=== PATIENT | female | born 1970 | race Hispanic/Latino ===

== ENCOUNTER 2018-08-16 07:45 | Emergency (ER) | payer BC, OTHER ==
[2018-08-16] MEDS ORDERED: ASPIRIN PO ONE (07:51)
[2018-08-16 08:09] LABS: Basophils # (Auto) 0.1 K/mm3 (0.0-0.1); Basophils % (Auto) 1.1 % (0.0-1.8); Eosinophils # (Auto) 0.3 K/mm3 (0.0-0.4); Eosinophils % (Auto) 3.5 % (0.0-4.3); Hematocrit 42.3 % (30.3-42.9); Hemoglobin 14.5 gm/dl (10.1-14.3); Lymphocytes # (Auto) 2.5 K/mm3 (1.2-5.4); Lymphocytes % (Auto) 28.1 % (13.4-35.0); Mean Corpuscular HGB Conc 34 % (30-34); Mean Corpuscular Volume 86 fl (79-97); Monocytes # (Auto) 0.8 K/mm3 (0.0-0.8); Monocytes % (Auto) 8.6 % (0.0-7.3); Platelet Count 258 K/mm3 (140-440); Red Blood Count 4.95 M/mm3 (3.65-5.03); Red Cell Distribution Width 13.4 % (13.2-15.2)
--- NOTE | 2018-08-16 08:11 | XRay Report ---
Chest 2 views: History: Chest pain. Findings: Borderline cardiomegaly. Trachea is midline. No consolidation, pneumothorax or pleural effusion. Impression: No acute cardiopulmonary findings.
[2018-08-16 08:21] LABS: BUN/Creatinine Ratio 27; Blood Urea Nitrogen 16 mg/dL (7-17); Hemolysis Index 11
--- NOTE | 2018-08-16 08:47 | Emergency Department Report ---
ED Chest Pain HPI - General Chief Complaint: Chest Pain Stated Complaint: HBP/CHEST TIGHTNESS Source: patient Mode of arrival: Ambulatory Limitations: No Limitations - History of Present Illness Initial Comments: This is a 47-year-old female that presents with substernal chest pain since 3 AM this morning. Patient states she got off work she started feeling chest tightness is substernal. In route home. She decided to follow up in the emergency room because she has similar symptoms in the past had to be admitted for observation. Patient states initially she thought it was just her blood pressure constant chest pain. Patient states when may check blood pressure was elevated and she continued to feel sharp pain center chest. Patient states last time she was admitted they did a stress test and echocardiogram and ran multiple labs which were all normal and told her to follow-up with her primary care provider. Patient states this time pain is worse and mL pain below bilateral shoulder presents. She also reports a history of hypertension but refuses to take lisinopril prescribed. She denies fever, rhinorrhea, dizziness, numbness or tingling, nausea or vomiting, diarrhea, dyspnea, cough, diaphoresis, or burning sensation. MD Complaint: chest pain -: This morning Time: 03:00 Pain Location: substernal Pain Radiation: none Severity: moderate Severity scale (0 -10): 5 Quality: tightness Consistency: intermittent Improves With: nothing Worsens With: nothing Treatments Prior to Arrival: none Aspirin use within the Past 7 Days: (0) No - Related Data On Oral Contraceptives: No Previous Rx's Medication Instructions Recorded Last Taken Type Albuterol Sulfate [Proventil Hfa] 6.7 gm IH Q6HR PRN #1 hfa.aer.ad 10/20/17 Unknown Rx HYDROcodone/ACETAMINOPHEN [[place] 1 each PO Q6HR PRN #14 tablet 10/20/17 Unknown Rx 5-325 Tablet] Mometasone Furoate [Asmanex Hfa] 13 gm IH BID #1 hfa.aer.ad 10/20/17 Unknown Rx Lisinopril [Zestril TAB] 5 mg PO QDAY #30 tablet 08/16/18 Unknown Rx Allergies Allergy/AdvReac Type Severity Reaction Status Date / Time prochlorperazine Allergy Itching Verified 10/19/17 01:48 [From Compazine] sulfamethoxazole Allergy Itching Verified 10/19/17 01:48 [From Bactrim] trimethoprim [From Bactrim] Allergy Itching Verified 10/19/17 01:48 Heart Score - HEART Score History: Slightly suspicious EKG: Normal Age: 45-65 Risk factors: 1-2 risk factors Troponin: < normal limit HEART Score: 2 - Critical Actions Critical Actions: 0-3 pts:0.9-1.7%risk of adverse cardiac event.Candidate for discharge ED Review of Systems ROS: Stated complaint: HBP/CHEST TIGHTNESS Other details as noted in HPI Constitutional: denies: chills, fever Respiratory: denies: cough, shortness of breath, wheezing Cardiovascular: chest pain. denies: palpitations Gastrointestinal: denies: abdominal pain, nausea, diarrhea Musculoskeletal: denies: back pain, joint swelling, arthralgia Skin: denies: rash, lesions Neurological: denies: headache, weakness, paresthesias Psychiatric: denies: anxiety, depression ED Past Medical Hx - Past Medical History Hx Arthritis: Yes Hx Asthma: Yes Additional medical history: sarcodosis - Surgical History Hx Cholecystectomy: Yes Hx Appendectomy: Yes Additional Surgical History: hysterectomy - Social History Smoking Status: Never Smoker Substance Use Type: None - Medications Home Medications: Home Medications Medication Instructions Recorded Confirmed Last Taken Type Albuterol Sulfate [Proventil Hfa] 6.7 gm IH Q6HR PRN #1 hfa.aer.ad 10/20/17 Unknown Rx HYDROcodone/ACETAMINOPHEN [[place] 1 each PO Q6HR PRN #14 tablet 10/20/17 Unknown Rx 5-325 Tablet] Mometasone Furoate [Asmanex Hfa] 13 gm IH BID #1 hfa.aer.ad 10/20/17 Unknown Rx Lisinopril [Zestril TAB] 5 mg PO QDAY #30 tablet 08/16/18 Unknown Rx ED Physical Exam - General Limitations: No Limitations General appearance: alert, in no apparent distress, obese - Respiratory Respiratory exam: Present: normal lung sounds bilaterally. Absent: respiratory distress - Cardiovascular Cardiovascular Exam: Present: regular rate, normal rhythm. Absent: systolic murmur, diastolic murmur, rubs, gallop - GI/Abdominal GI/Abdominal exam: Present: soft, normal bowel sounds - Back Exam Back exam: Absent: CVA tenderness (R), CVA tenderness (L) - Neurological Exam Neurological exam: Present: alert, oriented X3 - Psychiatric Psychiatric exam: Present: normal affect, normal mood - Skin Skin exam: Present: warm, dry, intact, normal color. Absent: rash ED Course Vital Signs 08/16/18 08/16/18 08/16/18 07:47 08:58 09:00 Temperature 98.6 F Pulse Rate 95 H 89 87 Respiratory 16 13 17 Rate Blood Pressure 167/100 153/91 O2 Sat by Pulse 98 99 Oximetry 08/16/18 08/16/18 08/16/18 09:01 09:15 09:31 Temperature Pulse Rate 90 91 H Respiratory 18 21 24 Rate Blood Pressure 161/96 139/78 O2 Sat by Pulse 98 96 96 Oximetry 08/16/18 08/16/18 08/16/18 09:45 09:49 10:00 Temperature Pulse Rate 90 86 83 Respiratory 17 10 L Rate Blood Pressure 139/84 139/84 O2 Sat by Pulse 98 98 Oximetry 08/16/18 08/16/18 08/16/18 10:15 10:30 10:45 Temperature Pulse Rate 85 88 87 Respiratory 21 22 22 Rate Blood Pressure 148/86 161/97 153/92 O2 Sat by Pulse 98 96 95 Oximetry 08/16/18 08/16/18 08/16/18 11:00 11:15 11:30 Temperature Pulse Rate 87 85 91 H Respiratory 21 21 18 Rate Blood Pressure 163/95 164/94 165/107 O2 Sat by Pulse 95 96 97 Oximetry FER score - Fer Score Age > 65: (0) No Aspirin use within the Past 7 Days: (0) No 3 or more CAD Risk Factors: (0) No 2 or more Angina events in past 24 hrs: (0) No Known CAD with more than 50% Stenosis: (0) No Elevated Cardiac Markers: (0) No ST Deviation Greater than 0.5mm: (0) No FER Score: 0 ED Medical Decision Making - Lab Data Result diagrams: 08/16/18 07:56 08/16/18 07:56 Lab Results 08/16/18 08/16/18 08/16/18 Range/Units 07:56 07:56 10:48 WBC 8.8 (4.5-11.0) K/mm3 RBC 4.95 (3.65-5.03) M/mm3 Hgb 14.5 H (10.1-14.3) gm/dl Hct 42.3 (30.3-42.9) % MCV 86 (79-97) fl MCH 29 (28-32) pg MCHC 34 (30-34) % RDW 13.4 (13.2-15.2) % Plt Count 258 (140-440) K/mm3 Lymph % (Auto) 28.1 (13.4-35.0) % Mchenry % (Auto) 8.6 H (0.0-7.3) % Eos % (Auto) 3.5 (0.0-4.3) % Baso % (Auto) 1.1 (0.0-1.8) % Lymph # 2.5 (1.2-5.4) K/mm3 Mchenry # 0.8 (0.0-0.8) K/mm3 Eos # 0.3 (0.0-0.4) K/mm3 Baso # 0.1 (0.0-0.1) K/mm3 Seg Neutrophils % 58.7 (40.0-70.0) % Seg Neutrophils # 5.2 (1.8-7.7) K/mm3 Sodium 138 (137-145) mmol/L Potassium 3.9 (3.6-5.0) mmol/L Chloride 99.9 (98-107) mmol/L Carbon Dioxide 25 (22-30) mmol/L Anion Gap 17 mmol/L BUN 16 (7-17) mg/dL Creatinine 0.6 L (0.7-1.2) mg/dL Estimated GFR > 60 ml/min BUN/Creatinine Ratio 27 % Glucose 97 (65-100) mg/dL Calcium 9.0 (8.4-10.2) mg/dL Troponin T < 0.010 < 0.010 (0.00-0.029) ng/mL - EKG Data -: No EKG Interpreted by Me (EKG interpreted by attending) EKG shows normal: sinus rhythm Rate: normal (no STEMI) - EKG Data When compared to previous EKG there are: no significant change - Radiology Data Radiology results: report reviewed Chest 2 views: History: Chest pain. Findings: Borderline cardiomegaly. Trachea is midline. No consolidation, pneumothorax or pleural effusion. Impression: No acute cardiopulmonary findings. - Medical Decision Making This is a 47 y.o. female that presents with chest pain that started around 3 AM this morning. History of HTN. Patient admits to refuse and taking blood pressure medication. Patient is stable and was examined by me. Obtained CBC, CMP, troponin, EKG, and chest x-ray. Given aspirin 325 mg by mouth. There is reproducible tenderness on right costochondral joint. Patient admitted at this ER less than a year ago and had a negative stress test, echocardiogram, and cardiac workup. Blood pressure remains elevated on monitor. Given lisinopril 5 mg by mouth once while in ER. Start lisinopril 5 mg po daily for hypertension. Referral to cardiology and gastroenterology for continued workup. Discussed plan with patient and agreed to plan. No further questions noted by the patient. Discharged home in stable condition. Follow up with PCP in 2-3 days. Critical care attestation.: If time is entered above; I have spent that time in minutes in the direct care of this critically ill patient, excluding procedure time. ED Disposition Clinical Impression: Chest pain Qualifiers: Chest pain type: unspecified Qualified Code(s): R07.9 - Chest pain, unspecified Hypertension Qualifiers: Hypertension type: essential hypertension Qualified Code(s): I10 - Essential (primary) hypertension Disposition: - TO HOME OR SELFCARE Is pt being admited?: No Does the pt Need Aspirin: No Condition: Stable Instructions: Chest Pain (ED), Hypertension (ED) Additional Instructions: Encourage stop smoking to reduce cardiovascular risk. Moderate caffeine consumption is acceptable. Begin and maintain aerobic exercise, with a goal of at least 30 minutes of moderate intensity, dynamic aerobic exercise (walking, jogging, cycling, or swimming) 5 days per week to total 150 minutes as tolerated or recommended by a physician. Take medication daily as prescribed. Follow up with a a&p mechanic and gasoline finisher from the referrals below. Follow up with Primary Care Provider in 1 week. Prescriptions: Lisinopril [Zestril TAB] 5 mg PO QDAY #30 tablet [facility]errals[facility]Other[facility] - 3-5 Days KIMBERLY ARZATE MD [Staff Physician] - 3-5 Days [facility] [Provider Group] - 3-5 Days [facility] [Provider Group] - 3-5 Days Forms: Work/School Release Form(ED) Time of Disposition: 12:06
--- NOTE | 2018-08-16 11:38 | Emergency Department Report ---
Blank Doc - Documentation Documentation: Patient's past medical history and her current symptoms are very reviewed by me with Ms. Painter. Have a had a [id number] with the patient as well. Patient had a negative cardiac workup including a cardiac cath less than a year ago. She has 2 negative troponins and a heart score 2. Patient is safe for discharge and will follow with cardiology as well as GI.
[2018-08-16] MEDS ORDERED: ZESTRIL PO ONE (11:47)
[2018-08-16 11:58] VITALS: BP 137/85
== END 2018-08-16 12:13 | disposition home or self-care (01) ==
LOC: ED 07:45
DX: R07.89 Other chest pain (principal); I10 Essential (primary) hypertension; M19.90 Unspecified osteoarthritis, unspecified site
CPT/HCPCS: 36415; 71046; 80048; 84484; 85025; 93005; 93010

== ENCOUNTER 2019-03-08 14:59 | Outpatient (CLI) | payer BC, OTHER ==
[2019-03-08 15:54] LABS: Mucus,Urine FEW /HPF; WBC,Urine < 1.0 /HPF (0.0-6.0)
[2019-03-08 15:55] LABS: Bilirubin,Urine Negative (Negative); Blood,Urine Negative (Negative); Color,Urine Straw (Yellow); Protein,Urine <15 mg/dL mg/dL (Negative)
[2019-03-08 15:56] LABS: Urobilinogen,Urine < 2.0 mg/dL (<2.0)
== END 2019-03-08 15:00 | disposition home or self-care (01) ==
LOC: LAB 14:59
PROVIDERS: ATTEND Internal Medicine
DX: N39.0 Urinary tract infection, site not specified (principal); I10 Essential (primary) hypertension; J45.909 Unspecified asthma, uncomplicated; M19.90 Unspecified osteoarthritis, unspecified site; Z90.49 Acquired absence of other specified parts of digestive tract; Z90.710 Acquired absence of both cervix and uterus
CPT/HCPCS: 81001

== ENCOUNTER 2019-03-16 19:18 | Emergency (ER) | payer BC ==
[2019-03-16] MEDS ORDERED: ASPIRIN 325 MG TAB PO ONE (19:46)
--- NOTE | 2019-03-16 19:48 | Event Note ---
ED Screening Note Date of service: 03/16/19 Time: 19:44 ED Screening Note: This is a 48 y.o. F. that presents to the ER with chest pain and headache for 2- 3 hours. PMH of asthma, sarcoidosis This initial assessment/diagnostic orders/clinical plan/treatment(s) is/are subject to change based on patients health status, clinical progression and re- assessment by fellow clinical providers in the ED. Further treatment and workup at subsequent clinical providers discretion. Patient/guardian urged not to elope from the ED as their condition may be serious if not clinically assessed and managed. Initial orders include: CXR, EKG, & labs
--- NOTE | 2019-03-16 20:20 | XRay Report ---
CHEST 1 VIEW INDICATION: MAIN: Chest Pain . COMPARISON: 08/16/2018 FINDINGS: Support devices: None. Heart: Within normal limits. Lungs/Pleura: Minimal left basilar atelectasis with otherwise clear lungs. Additional findings: None. IMPRESSION: 1. No acute findings. Signer Name: James Gordillo MD Signed: 03/16/2019 8:15 PM Workstation Name: [id number]
[2019-03-16] MEDS ORDERED: FAMOTIDINE 20 MG/2 ML INJ IV ONE (20:45)
[2019-03-16] MEDS ORDERED: ALUM-MAG HYDROXIDE-SIMETHICONE 200-200-20MG/5ML ORAL LIQD 30 ML PO ONE (20:46)
[2019-03-16] MEDS ORDERED: LIDOCAINE VISCOUS 2% 15 ML ORAL LIQD PO ONE (20:46)
[2019-03-16 21:03] LABS: Basophils # (Auto) 0.1 K/mm3 (0.0-0.1); Basophils % (Auto) 0.7 % (0.0-1.8); Eosinophils # (Auto) 0.2 K/mm3 (0.0-0.4); Eosinophils % (Auto) 1.8 % (0.0-4.3); Hematocrit 43.5 % (30.3-42.9); Hemoglobin 14.8 gm/dl (10.1-14.3); Lymphocytes # (Auto) 1.5 K/mm3 (1.2-5.4); Lymphocytes % (Auto) 15.1 % (13.4-35.0); Mean Corpuscular HGB Conc 34 % (30-34); Mean Corpuscular Volume 85 fl (79-97); Monocytes # (Auto) 0.7 K/mm3 (0.0-0.8); Monocytes % (Auto) 6.6 % (0.0-7.3); Platelet Count 273 K/mm3 (140-440); Red Cell Distribution Width 12.7 % (13.2-15.2)
[2019-03-16 21:19] LABS: Alanine Aminotransferase 18 units/L (7-56); Albumin 4.3 g/dL (3.9-5)
[2019-03-16 21:25] LABS: Bilirubin,Direct < 0.2 mg/dL (0-0.2)
[2019-03-16 21:52] LABS: BUN/Creatinine Ratio 18; Blood Urea Nitrogen 11 mg/dL (7-17); Calcium 9.5 mg/dL (8.4-10.2); Hemolysis Index 54
--- NOTE | 2019-03-17 00:34 | Emergency Department Report ---
ED Chest Pain HPI - General Chief Complaint: Chest Pain Stated Complaint: CHEST TIGHTNESS/EMMIE/L SIDE ABD PAIN Time Seen by Provider: 03/16/19 19:43 Source: patient Mode of arrival: Ambulatory Limitations: No Limitations - History of Present Illness Initial Comments: Patient is a 48-year-old female with a history of chronic osteoarthritis and asthma who presents to the ED with complaint of acute onset persistent substernal chest pain and discomfort and left upper quadrant and epigastric pain for the last 2 hours constantly. Patient states that the symptoms have been constant since the onset. Patient denies shortness of breath, diaphoresis, nausea, vomiting, diarrhea, dizziness, headache, change in vision, dysuria, urinary frequency and urgency, neck pain or arm pain. Patient states that she has had similar episodes before and has not been diagnosed with GERD. MD Complaint: chest pain, other (LUQ pain) -: Sudden, hour(s) (2) Onset: during rest Pain Location: substernal, other (LUQ, epigastric) Pain Radiation: none Severity: moderate Severity scale (0 -10): 4 Quality: aching, dull Consistency: constant Improves With: nothing Worsens With: nothing re: denies: nausea, vomting, diaphoresis, dyspnea, sense of impending doom Other Symptoms: denies: cough, fever, syncope, rash, acid taste in mouth, leg sw elling, palpitations, burping, other Treatments Prior to Arrival: none - Related Data On Oral Contraceptives: No Previous Rx's Medication Instructions Recorded Last Taken Type Albuterol Sulfate [Proventil Hfa] 6.7 gm IH Q6HR PRN #1 hfa.aer.ad 10/20/17 Unknown Rx HYDROcodone/ACETAMINOPHEN [[place] 1 each PO Q6HR PRN #14 tablet 10/20/17 Unknown Rx 5-325 Tablet] Mometasone Furoate [Asmanex Hfa] 13 gm IH BID #1 hfa.aer.ad 10/20/17 Unknown Rx Lisinopril [Zestril TAB] 5 mg PO QDAY #30 tablet 08/16/18 Unknown Rx Famotidine [Pepcid] 20 mg PO Q12H #60 tablet 03/17/19 Unknown Rx Ondansetron [Zofran Odt] 4 mg PO Q6HR PRN #12 tab.rapdis 03/17/19 Unknown Rx Allergies Allergy/AdvReac Type Severity Reaction Status Date / Time prochlorperazine Allergy Itching Verified 10/19/17 01:48 [From Compazine] sulfamethoxazole Allergy Itching Verified 10/19/17 01:48 [From Bactrim] trimethoprim [From Bactrim] Allergy Itching Verified 10/19/17 01:48 Heart Score - HEART Score History: Slightly suspicious EKG: Normal Age: 45-65 Risk factors: No known risk factors Troponin: < normal limit HEART Score: 1 ED Review of Systems ROS: Stated complaint: CHEST TIGHTNESS/EMMIE/L SIDE ABD PAIN Other details as noted in HPI Constitutional: denies: chills, fever Eyes: denies: eye pain, eye discharge, vision change ENT: denies: ear pain, throat pain Respiratory: denies: cough, shortness of breath, wheezing Cardiovascular: chest pain. denies: palpitations Endocrine: no symptoms reported Gastrointestinal: abdominal pain. denies: nausea, diarrhea Genitourinary: denies: urgency, dysuria, discharge Musculoskeletal: denies: back pain, joint swelling, arthralgia Skin: denies: rash, lesions Neurological: denies: headache, weakness, paresthesias Psychiatric: denies: anxiety, depression Hematological/Lymphatic: denies: easy bleeding, easy bruising ED Past Medical Hx - Past Medical History Previous Medical History?: Yes Hx Arthritis: Yes Hx Asthma: Yes Additional medical history: sarcodosis - Surgical History Past Surgical History?: Yes Hx Cholecystectomy: Yes Hx Appendectomy: Yes Additional Surgical History: hysterectomy - Social History Smoking Status: Never Smoker Substance Use Type: None - Medications Home Medications: Home Medications Medication Instructions Recorded Confirmed Last Taken Type Albuterol Sulfate [Proventil Hfa] 6.7 gm IH Q6HR PRN #1 hfa.aer.ad 10/20/17 Unknown Rx HYDROcodone/ACETAMINOPHEN [[place] 1 each PO Q6HR PRN #14 tablet 10/20/17 Unknown Rx 5-325 Tablet] Mometasone Furoate [Asmanex Hfa] 13 gm IH BID #1 hfa.aer.ad 10/20/17 Unknown Rx Lisinopril [Zestril TAB] 5 mg PO QDAY #30 tablet 08/16/18 Unknown Rx Famotidine [Pepcid] 20 mg PO Q12H #60 tablet 03/17/19 Unknown Rx Ondansetron [Zofran Odt] 4 mg PO Q6HR PRN #12 tab.rapdis 03/17/19 Unknown Rx ED Physical Exam - General Limitations: No Limitations General appearance: alert, in no apparent distress - Head Head exam: Present: atraumatic, normocephalic, normal inspection - Eye Eye exam: Present: normal appearance, PERRL, EOMI Pupils: Present: normal accommodation - ENT ENT exam: Present: normal exam, normal orophraynx, mucous membranes moist, TM's normal bilaterally, normal external ear exam - Neck Neck exam: Present: normal inspection, full ROM - Respiratory Respiratory exam: Present: normal lung sounds bilaterally. Absent: respiratory distress, wheezes, rales, stridor, chest wall tenderness, accessory muscle use, decreased breath sounds - Cardiovascular Cardiovascular Exam: Present: regular rate, normal rhythm, normal heart sounds. Absent: systolic murmur, diastolic murmur, rubs, gallop - GI/Abdominal GI/Abdominal exam: Present: soft, normal bowel sounds. Absent: tenderness, guarding, hypoactive bowel sounds, organomegaly, mass - Extremities Exam Extremities exam: Present: normal inspection, full ROM, normal capillary refill - Back Exam Back exam: Present: normal inspection, full ROM. Absent: muscle spasm, paraspinal tenderness - Neurological Exam Neurological exam: Present: alert, oriented X3, CN II-XII intact, normal gait, reflexes normal - Psychiatric Psychiatric exam: Present: normal affect, normal mood - Skin Skin exam: Present: warm, dry, intact, normal color. Absent: rash ED Course Vital Signs 03/16/19 03/16/19 03/16/19 19:30 21:13 21:15 Temperature 98.9 F Pulse Rate 106 H 92 H 92 H Respiratory 18 15 19 Rate Blood Pressure 157/94 129/84 O2 Sat by Pulse 100 99 97 Oximetry 03/16/19 03/16/19 03/16/19 21:22 21:30 22:00 Temperature Pulse Rate 91 H 91 H Respiratory 18 16 17 Rate Blood Pressure 121/75 127/67 O2 Sat by Pulse 100 98 97 Oximetry 03/16/19 03/16/19 03/16/19 22:30 23:00 23:30 Temperature Pulse Rate 89 88 89 Respiratory 18 18 17 Rate Blood Pressure 116/60 133/69 122/73 O2 Sat by Pulse 97 95 97 Oximetry - Reevaluation(s) Reevaluation #1: 03/17/19 00:37 This is a 48-year-old female who presented to the ED with chest pain and left upper quadrant and epigastric pain for 2 hours. In the ED, patient is alert and oriented 3 and is not in distress. Initial EKG shows normal sinus rhythm with ventricular rate of 99 bpm and nonspecific T abnormalities T-wave abnormalities in inferior leads but no pathological Q waves or ST abnormalities. Chest x-ray shows no acute cardiopulmonary abnormalities. Lab test results were reviewed and are none actionable including initial and repeat troponin levels. Patient was patient was treated in the ED with GI cocktail and aspirin as well as Pepcid. On reevaluation, patient's left upper quadrant and epigastric pain resolved with medications but patient states that she still has some mild chest wall discomfort. Patient symptoms are likely noncardiac given the fact that all lab test results are nonactionable. The patient's heart score is 1. Patient had a normal stress test about one year ago by her cable mock up assembler Dr. Dubois. The test showed normal left ventricular systolic performance as well as normal myocardial perfusion. Patient has however not been able to follow-up with her cable mock up assembler since that visit. Patient was therefore discharged home and advised to schedule an appointment for follow-up with her cable mock up assembler in the next 5-7 days, and also follow-up with her primary care physician in the next 7- 10 days. Patient was advised to return to the ED immediately if symptoms get worse. FER score - Fer Score Age > 65: (0) No Aspirin use within the Past 7 Days: (0) No 3 or more CAD Risk Factors: (0) No 2 or more Angina events in past 24 hrs: (0) No Known CAD with more than 50% Stenosis: (0) No Elevated Cardiac Markers: (0) No ST Deviation Greater than 0.5mm: (0) No FER Score: 0 ED Medical Decision Making - Lab Data Result diagrams: 03/16/19 20:03 03/16/19 20:03 - EKG Data Rate: normal - EKG Data Interpretation: normal EKG - Radiology Data Radiology results: report reviewed, image reviewed Chest x-ray shows no acute cardiopulmonary abnormalities or pneumonitis. - Medical Decision Making This is a 48-year-old female who presented to the ED with chest pain and left upper quadrant and epigastric pain for 2 hours. In the ED, patient is alert and oriented 3 and is not in distress. Initial EKG shows normal sinus rhythm with ventricular rate of 99 bpm and nonspecific T abnormalities T-wave abnormalities in inferior leads but no pathological Q waves or ST abnormalities. Chest x-ray shows no acute cardiopulmonary abnormalities. Lab test results were reviewed and are none actionable including initial and repeat troponin levels. Patient was patient was treated in the ED with GI cocktail and aspirin as well as Pepcid. On reevaluation, patient's left upper quadrant and epigastric pain resolved with medications but patient states that she still has some mild chest wall discomfort. Patient symptoms are likely noncardiac given the fact that all lab test results are nonactionable. The patient's heart score is 1. Patient had a normal stress test about one year ago by her cable mock up assembler Dr. Dubois. The test showed normal left ventricular systolic performance as well as normal myocardial perfusion. Patient has however not been able to follow-up with her cable mock up assembler since that visit. Patient was therefore discharged home and advised to schedule an appointment for follow-up with her cable mock up assembler in the next 5-7 days, and also follow-up with her primary care physician in the next 7- 10 days. Patient was advised to return to the ED immediately if symptoms get worse. - Differential Diagnosis ACS; GERD; Asthma; Pneumonia; Costochondritis Critical care attestation.: If time is entered above; I have spent that time in minutes in the direct care of this critically ill patient, excluding procedure time. ED Disposition Clinical Impression: Atypical chest pain Abdominal pain Qualifiers: Abdominal location: left upper quadrant Qualified Code(s): R10.12 - Left upper quadrant pain GERD (gastroesophageal reflux disease) Qualifiers: Esophagitis presence: without esophagitis Qualified Code(s): K21.9 - Gastro- esophageal reflux disease without esophagitis Disposition: DC-01 TO HOME OR SELFCARE Is pt being admited?: No Does the pt Need Aspirin: No Condition: Stable Instructions: Chest Pain (ED), Gastroesophageal Reflux Disease (ED), Abdominal Pain (ED) Additional Instructions: Take medications with food, drink plenty of fluids and follow-up with your primary care physician in 7-10 days for reevaluation. Consider following up with your cable mock up assembler as well in the next 5-7 days for further evaluation. Prescriptions: Famotidine [Pepcid] 20 mg PO Q12H #60 tablet Ondansetron [Zofran Odt] 4 mg PO Q6HR PRN #12 tab.rapdis PRN Reason: Nausea Referrals: PRIMARY CARE,MD [Primary Care Provider] - 3-5 Days Time of Disposition: 00:45 Print Language: FAROESE
[2019-03-17 01:15] VITALS: BP 128/81
== END 2019-03-17 01:16 | disposition home or self-care (01) ==
LOC: ED 19:18
DX: K21.9 Gastro-esophageal reflux disease without esophagitis (principal); R07.2 Precordial pain; M19.90 Unspecified osteoarthritis, unspecified site; J45.909 Unspecified asthma, uncomplicated; D86.9 Sarcoidosis, unspecified; Z90.49 Acquired absence of other specified parts of digestive tract; Z90.710 Acquired absence of both cervix and uterus; Z79.899 Other long term (current) drug therapy; Z88.2 Allergy status to sulfonamides; Z88.8 Allergy status to other drugs, medicaments and biological substances
CPT/HCPCS: 36415; 71045; 80048; 80076; 84484; 85025; 93005; 93010; 96374

== ENCOUNTER 2020-04-22 00:03 | Emergency (ER) | payer BC, OTHER ==
[2020-04-22] MEDS ORDERED: ASPIRIN 325 MG TAB PO ONE (00:20)
--- NOTE | 2020-04-22 00:51 | XRay Report ---
CHEST 1 VIEW INDICATION / CLINICAL INFORMATION: Chest Pain. COMPARISON: Chest radiograph 03/16/2019 FINDINGS: SUPPORT DEVICES: None. HEART / MEDIASTINUM: No significant abnormality. LUNGS / PLEURA: No significant pulmonary or pleural abnormality. No pneumothorax. ADDITIONAL FINDINGS: No significant additional findings. IMPRESSION: 1. No acute findings. Signer Name: Kim Sanchez MD Signed: 04/22/2020 12:46 AM Workstation Name: [id number]
[2020-04-22 01:26] LABS: Basophils # (Auto) 0.1 K/mm3 (0.0-0.1); Eosinophils # (Auto) 0.3 K/mm3 (0.0-0.4); Eosinophils % (Auto) 3.7 % (0.0-4.3); Hematocrit 44.4 % (30.3-42.9); Hemoglobin 15.5 gm/dl (10.1-14.3); Lymphocytes # (Auto) 1.8 K/mm3 (1.2-5.4); Lymphocytes % (Auto) 19.9 % (13.4-35.0); Mean Corpuscular HGB Conc 35 % (30-34); Mean Corpuscular Volume 86 fl (79-97); Monocytes # (Auto) 0.7 K/mm3 (0.0-0.8); Monocytes % (Auto) 7.8 % (0.0-7.3); Platelet Count 262 K/mm3 (140-440); Red Blood Count 5.15 M/mm3 (3.65-5.03); Red Cell Distribution Width 12.4 % (13.2-15.2)
[2020-04-22 01:46] LABS: Blood Urea Nitrogen 17 mg/dL (7-17); Calcium 9.9 mg/dL (8.4-10.2); Hemolysis Index 25
[2020-04-22 01:58] LABS: BUN/Creatinine Ratio 24
[2020-04-22 07:43] VITALS: BP 156/99
--- NOTE | 2020-04-22 07:43 | Emergency Department Report ---
ED Chest Pain HPI - General Chief Complaint: Chest Pain Stated Complaint: CHEST TIGHTNESS, AND BACK PAIN Time Seen by Provider: 04/22/20 07:24 Source: patient Mode of arrival: Ambulatory Limitations: No Limitations - Related Data Previous Rx's Medication Instructions Recorded Last Taken Type Albuterol Sulfate [Proventil Hfa] 6.7 gm IH Q6HR PRN #1 hfa.aer.ad 10/20/17 Unknown Rx HYDROcodone/ACETAMINOPHEN [[place] 1 each PO Q6HR PRN #14 tablet 10/20/17 Unknown Rx 5-325 Tablet] Mometasone Furoate [Asmanex Hfa] 13 gm IH BID #1 hfa.aer.ad 10/20/17 Unknown Rx lisinopriL [Zestril TAB] 5 mg PO QDAY #30 tablet 08/16/18 Unknown Rx Famotidine [Pepcid] 20 mg PO Q12H #60 tablet 03/17/19 Unknown Rx Ondansetron [Zofran Odt] 4 mg PO Q6HR PRN #12 tab.rapdis 03/17/19 Unknown Rx Allergies Allergy/AdvReac Type Severity Reaction Status Date / Time prochlorperazine Allergy Itching Verified 10/19/17 01:48 [From Compazine] sulfamethoxazole Allergy Itching Verified 10/19/17 01:48 [From Bactrim] trimethoprim [From Bactrim] Allergy Itching Verified 10/19/17 01:48 ED Review of Systems ROS: Stated complaint: CHEST TIGHTNESS, AND BACK PAIN Other details as noted in HPI ED Past Medical Hx - Past Medical History Hx Arthritis: Yes Hx Asthma: Yes Additional medical history: sarcodosis - Surgical History Hx Cholecystectomy: Yes Hx Appendectomy: Yes Additional Surgical History: hysterectomy - Social History Smoking Status: Never Smoker Substance Use Type: Alcohol - Medications Home Medications: Home Medications Medication Instructions Recorded Confirmed Last Taken Type Albuterol Sulfate [Proventil Hfa] 6.7 gm IH Q6HR PRN #1 hfa.aer.ad 10/20/17 Unknown Rx HYDROcodone/ACETAMINOPHEN [[place] 1 each PO Q6HR PRN #14 tablet 10/20/17 Unknown Rx 5-325 Tablet] Mometasone Furoate [Asmanex Hfa] 13 gm IH BID #1 hfa.aer.ad 10/20/17 Unknown Rx lisinopriL [Zestril TAB] 5 mg PO QDAY #30 tablet 08/16/18 Unknown Rx Famotidine [Pepcid] 20 mg PO Q12H #60 tablet 03/17/19 Unknown Rx Ondansetron [Zofran Odt] 4 mg PO Q6HR PRN #12 tab.rapdis 03/17/19 Unknown Rx ED Physical Exam - General Limitations: No Limitations ED Course Vital Signs 04/22/20 04/22/20 00:22 04:59 Temperature 97.6 F 97.6 F Pulse Rate 113 H 91 H Respiratory 17 19 Rate Blood Pressure 144/89 150/97 O2 Sat by Pulse 94 100 Oximetry ANDREW score - Andrew Score Age > 65: (0) No Aspirin use within the Past 7 Days: (0) No 3 or more CAD Risk Factors: (0) No 2 or more Angina events in past 24 hrs: (0) No Known CAD with more than 50% Stenosis: (0) No Elevated Cardiac Markers: (0) No ST Deviation Greater than 0.5mm: (0) No ANDREW Score: 0 ED Medical Decision Making - Lab Data Result diagrams: 04/22/20 00:40 04/22/20 00:40 - Radiology Data Radiology results: report reviewed [facility] [address] [place] [address] XRay Report Signed Patient: NAOMY DOBBINS MR#: [id number] : 1970 Acct:[id number] Age/Sex: 49 / F ADM Date: 04/22/20 Loc: ED Attending Dr: Ordering Physician: ED MD DEISY Date of Service: 04/22/20 Procedure(s): XR chest 1V ap Accession Number(s): [id number] cc: ED MD DEISY Fluoro Time In Minutes: CHEST 1 VIEW INDICATION / CLINICAL INFORMATION: Chest Pain. COMPARISON: Chest radiograph 03/16/2019 FINDINGS: SUPPORT DEVICES: None. HEART / MEDIASTINUM: No significant abnormality. LUNGS / PLEURA: No significant pulmonary or pleural abnormality. No pneumothorax. ADDITIONAL FINDINGS: No significant additional findings. IMPRESSION: 1. No acute findings. Signer Name: Kim Sanchez MD Signed: 04/22/2020 12:46 AM Workstation Name: [id number] Transcribed By: C Dictated By: Kim Sanchez MD Electronically Authenticated By: Kim Sanchez MD Signed Date/Time: 04/22/2045 DD/ TD/TT: Critical care attestation.: If time is entered above; I have spent that time in minutes in the direct care of this critically ill patient, excluding procedure time. ED Disposition Condition: Stable Referrals: JL SHIN MD [Primary Care Provider] - 3-5 Days
--- NOTE | 2020-04-22 08:04 | Emergency Department Report ---
ED Chest Pain HPI - General Chief Complaint: Chest Pain Stated Complaint: CHEST TIGHTNESS, AND BACK PAIN Time Seen by Provider: 04/22/20 07:24 Source: patient Mode of arrival: Ambulatory Limitations: No Limitations - History of Present Illness Initial Comments: This is a 49-year-old female who presents to the emergency department with complaint of a 1 day history of some midsternal or generalized chest tightness. This is associated with some continued low back spasms that have started to radiate around towards her lower abdomen and hips. The patient was seen at [facility] about 1 week ago for the back pain and spasms. She says that she had an x-ray that showed some degenerative changes and was discharged home on some Robaxin. The Robaxin does appear to help intermittently with the back spasms. The chest tightness has been going on since 2299. There are no known aggravating or alleviating factors. She has not taken anything for the symptoms prior to presentation. She has a past medical history of asthma and sarcoidosis. She denies any tobacco use. Her primary care physician is Dr. Bergman, and the patient has seen [facility] cardiology in the past, about 2 years ago, for a cardiac work-up. The patient says that she has had a negative stress test and echocardiogram about 2 years ago. No recent travel. She denies any fever, nausea, vomiting, cough, shortness of breath, lower extremity edema. - Related Data Previous Rx's Medication Instructions Recorded Last Taken Type Albuterol Sulfate [Proventil Hfa] 6.7 gm IH Q6HR PRN #1 hfa.aer.ad 10/20/17 Unknown Rx HYDROcodone/ACETAMINOPHEN [[place] 1 each PO Q6HR PRN #14 tablet 10/20/17 Unknown Rx 5-325 Tablet] Mometasone Furoate [Asmanex Hfa] 13 gm IH BID #1 hfa.aer.ad 10/20/17 Unknown Rx lisinopriL [Zestril TAB] 5 mg PO QDAY #30 tablet 08/16/18 Unknown Rx Famotidine [Pepcid] 20 mg PO Q12H #60 tablet 03/17/19 Unknown Rx Ondansetron [Zofran Odt] 4 mg PO Q6HR PRN #12 tab.rapdis 03/17/19 Unknown Rx Allergies Allergy/AdvReac Type Severity Reaction Status Date / Time prochlorperazine Allergy Itching Verified 10/19/17 01:48 [From Compazine] sulfamethoxazole Allergy Itching Verified 10/19/17 01:48 [From Bactrim] trimethoprim [From Bactrim] Allergy Itching Verified 10/19/17 01:48 Heart Score - HEART Score History: Slightly suspicious EKG: Normal Age: 45-65 Risk factors: 1-2 risk factors Troponin: < normal limit HEART Score: 2 - Critical Actions Critical Actions: 0-3 pts:0.9-1.7%risk of adverse cardiac event.Candidate for discharge ED Review of Systems ROS: Stated complaint: CHEST TIGHTNESS, AND BACK PAIN Other details as noted in HPI Comment: All other systems reviewed and negative Constitutional: denies: chills, fever Eyes: denies: eye pain, vision change ENT: denies: ear pain, throat pain Respiratory: denies: cough, shortness of breath Cardiovascular: chest pain. denies: palpitations Gastrointestinal: denies: nausea, vomiting Genitourinary: denies: dysuria, discharge Musculoskeletal: back pain. denies: arthralgia Skin: denies: rash, lesions Neurological: denies: headache, weakness ED Past Medical Hx - Past Medical History Hx Arthritis: Yes Hx Asthma: Yes Additional medical history: sarcodosis - Surgical History Hx Cholecystectomy: Yes Hx Appendectomy: Yes Additional Surgical History: hysterectomy - Social History Smoking Status: Never Smoker Substance Use Type: Alcohol - Medications Home Medications: Home Medications Medication Instructions Recorded Confirmed Last Taken Type Albuterol Sulfate [Proventil Hfa] 6.7 gm IH Q6HR PRN #1 hfa.aer.ad 10/20/17 Unknown Rx HYDROcodone/ACETAMINOPHEN [[place] 1 each PO Q6HR PRN #14 tablet 10/20/17 Unknown Rx 5-325 Tablet] Mometasone Furoate [Asmanex Hfa] 13 gm IH BID #1 hfa.aer.ad 10/20/17 Unknown Rx lisinopriL [Zestril TAB] 5 mg PO QDAY #30 tablet 08/16/18 Unknown Rx Famotidine [Pepcid] 20 mg PO Q12H #60 tablet 03/17/19 Unknown Rx Ondansetron [Zofran Odt] 4 mg PO Q6HR PRN #12 tab.rapdis 03/17/19 Unknown Rx ED Physical Exam - General Limitations: No Limitations - Other Other exam information: GENERAL: The patient is well-developed well-nourished. HENT: Normocephalic. Atraumatic. Patient has moist mucous membranes. EYES: Extraocular motions are intact. NECK: Supple. Trachea is midline. CHEST/LUNGS: Clear to auscultation. There is no respiratory distress noted. HEART/CARDIOVASCULAR: Regular. There is no tachycardia. There is no murmur. ABDOMEN: Abdomen is soft, nontender. Patient has normal bowel sounds. SKIN: Skin is warm and dry. NEURO: The patient is awake, alert, and oriented. The patient is cooperative. The patient has no focal neurologic deficits. Normal speech. MUSCULOSKELETAL: There is no tenderness or deformity. There is no limitation range of motion. BACK: No midline thoracic or lumbar tenderness to palpation. There is some lower thoracic and upper lumbar bilateral paraspinal tenderness to palpation. ED Course Vital Signs 04/22/20 04/22/20 04/22/20 00:22 04:59 07:34 Temperature 97.6 F 97.6 F Pulse Rate 113 H 91 H Respiratory 17 19 18 Rate Blood Pressure 144/89 150/97 Blood Pressure [Right] O2 Sat by Pulse 94 100 99 Oximetry 04/22/20 07:42 Temperature Pulse Rate 95 H Respiratory 18 Rate Blood Pressure Blood Pressure 156/99 [Right] O2 Sat by Pulse 98 Oximetry FER score - Fer Score Age > 65: (0) No Aspirin use within the Past 7 Days: (0) No 3 or more CAD Risk Factors: (0) No 2 or more Angina events in past 24 hrs: (1) Yes Known CAD with more than 50% Stenosis: (0) No Elevated Cardiac Markers: (0) No ST Deviation Greater than 0.5mm: (0) No FER Score: 1 ED Medical Decision Making - Lab Data Result diagrams: 04/22/20 00:40 04/22/20 00:40 - EKG Data -: EKG Interpreted by Me EKG shows normal: sinus rhythm, axis, intervals, QRS complexes, ST-T waves Rate: tachycardia (108 bpm) - EKG Data When compared to previous EKG there are: no significant change Interpretation: unchanged when compared t (03/16/19) - Radiology Data Radiology results: image reviewed interpreted by me: Chest x-ray does not show any acute process. There are no pleural effusions, obvious pneumonia and there is no pneumothorax. No significant cardiomegaly. - Medical Decision Making This patient presents to the emergency department with a complaint of some gen eralized chest tightness that started last night. On examination the heart and lung sounds are normal to auscultation. The patient does not appear in any respiratory or acute distress. EKG does not show any morphology consistent with ST elevation myocardial infarction or any dysrhythmia. Labs have been mostly unremarkable including CBC, metabolic panel, and negative troponins x2. Vital signs have been reassuring throughout her ED course including being afebrile. Patient is low on the heart and FER score. She is low on the Wells score criteria and negative on the pulmonary embolism rule out criteria. For all these reasons the patient appears safe for discharge home at this time. Her contact information has been sent over to the [facility] [place], and someone from their office should be contacting her shortly for close outpatient follow-up as per our [facility] low risk chest pain protocol. She will return to the closest emergency department with any worsening of her symptoms or with any acute distress. Critical Care Time: No Critical care attestation.: If time is entered above; I have spent that time in minutes in the direct care of this critically ill patient, excluding procedure time. ED Disposition Clinical Impression: Chest pain Qualifiers: Chest pain type: unspecified Qualified Code(s): R07.9 - Chest pain, unspecified Back pain Qualifiers: Back pain location: back pain in unspecified location Chronicity: unspecified Back pain laterality: unspecified Qualified Code(s): M54.9 - Dorsalgia, unspecified Disposition: DC-01 TO HOME OR SELFCARE Is pt being admited?: No Condition: Stable Instructions: Acute Back Pain, Adult, Nonspecific Chest Pain, Adult, Chest Pain (ED) Additional Instructions: Please follow-up with your primary care physician in the next few days. I am sending your contact information over to the [facility] [place] ([facility]), and someone from their office should be contacting you shortly for close outpatient follow-up. Just in case, I am giving you a referral for one of their hopper operator, Dr. Burrell. Try to stay away from foods that are high in salt and caffeinated products. Keep a blood pressure log. Return to the emergency department with any worsening of your symptoms, new or concerning symptoms not addressed during this current emergency department visit, or with any acute distress. Referrals: JL BERGMAN MD [Primary Care Provider] - 2-3 Days YAMILETH BURRELL MD [Staff Physician] - 2-3 Days Time of Disposition: 08:05
== END 2020-04-22 08:15 | disposition home or self-care (01) ==
LOC: ED 00:03
DX: M54.9 Dorsalgia, unspecified (principal); R07.89 Other chest pain; J45.909 Unspecified asthma, uncomplicated; M19.90 Unspecified osteoarthritis, unspecified site; Z79.899 Other long term (current) drug therapy; Z98.890 Other specified postprocedural states; Z90.49 Acquired absence of other specified parts of digestive tract; Z88.2 Allergy status to sulfonamides; Z88.8 Allergy status to other drugs, medicaments and biological substances; Z90.710 Acquired absence of both cervix and uterus
CPT/HCPCS: 36415; 71045; 80048; 84484; 85025; 93005

== ENCOUNTER 2020-06-22 23:54 | Observation (INO) | payer OTHER ==
[2020-06-23] MEDS ORDERED: NITROGLYCERIN 2% OINT 1 GM TP ONE (01:49)
[2020-06-23] MEDS ORDERED: fentaNYL 100 MCG/2 ML INJ IV ONE (01:49)
[2020-06-23] MEDS ORDERED: ONDANSETRON 4 MG/2 ML INJ IV ONE (01:49)
[2020-06-23] MEDS ORDERED: ASPIRIN 325 MG TAB PO ONE (01:50)
--- NOTE | 2020-06-23 01:56 | Emergency Department Report ---
HPI - General Chief Complaint: Anxiety Time Seen by Provider: 06/23/20 01:33 - HPI HPI: Room 35 The patient is a 49-year-old female present with a chief complaint of anxiety. The patient states this evening she felt very anxious and could not sit still. Patient states she developed substernal chest tightness that has been constant and associated with shortness of breath. Patient denies nausea/vomiting or diaphoresis. Patient states she has had palpitations and felt restless and isolated. 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 Patient currently gives her chest tightness a score of 4/10. Patient states her last stress test occurred in 2017 but she has never had a cardiac catheterization ED Past Medical Hx - Past Medical History Previous Medical History?: Yes Hx Arthritis: Yes Hx Asthma: Yes Additional medical history: sarcodosis - Surgical History Past Surgical History?: Yes Hx Cholecystectomy: Yes Hx Appendectomy: Yes Additional Surgical History: hysterectomy - Family History Family history: no significant - Social History Smoking Status: Never Smoker Substance Use Type: None (Denies illicit drug use), Alcohol (Rarely) - Medications Home Medications: Home Medications Medication Instructions Recorded Confirmed Last Taken Type Albuterol Sulfate [Proventil Hfa] 6.7 gm IH Q6HR PRN #1 hfa.aer.ad 10/20/17 Unknown Rx HYDROcodone/ACETAMINOPHEN [[place] 1 each PO Q6HR PRN #14 tablet 10/20/17 Unknown Rx 5-325 Tablet] Mometasone Furoate [Asmanex Hfa] 13 gm IH BID #1 hfa.aer.ad 10/20/17 Unknown Rx lisinopriL [Zestril TAB] 5 mg PO QDAY #30 tablet 08/16/18 Unknown Rx Famotidine [Pepcid] 20 mg PO Q12H #60 tablet 03/17/19 Unknown Rx Ondansetron [Zofran Odt] 4 mg PO Q6HR PRN #12 tab.rapdis 03/17/19 Unknown Rx ED Review of Systems ROS: Stated complaint: CHEST TIGHTNESS;POSSIBLE ANXIETY Other details as noted in HPI Constitutional: no symptoms reported Eyes: denies: eye pain ENT: denies: throat pain Respiratory: shortness of breath Cardiovascular: chest pain, palpitations Endocrine: no symptoms reported Gastrointestinal: denies: nausea, vomiting Genitourinary: denies: dysuria Musculoskeletal: back pain Neurological: denies: headache Physical Exam - Physical Exam Vital Signs: Vital Signs 06/22/20 23:58 Temperature 97.8 F Pulse Rate 97 H Respiratory 17 Rate Blood Pressure 147/84 O2 Sat by Pulse 100 Oximetry Physical Exam: GENERAL: The patient is well-developed well-nourished female lying on stretcher not appearing to be in acute distress. [] HEENT: Normocephalic. Atraumatic. Extraocular motions are intact. Patient has moist mucous membranes. NECK: Supple. Trachea midline CHEST/LUNGS: Clear to auscultation. There is no respiratory distress noted. HEART/CARDIOVASCULAR: Regular. There is no tachycardia. There is no gallop rub or murmur. ABDOMEN: Abdomen is soft, nontender. Patient has normal bowel sounds. There is no abdominal distention. SKIN: There is no rash. There is no edema. There is no diaphoresis. NEURO: The patient is awake, alert, and oriented. The patient is cooperative. The patient has normal speech MUSCULOSKELETAL: There is no evidence of acute injury. ED Course Vital Signs 06/22/20 23:58 Temperature 97.8 F Pulse Rate 97 H Respiratory 17 Rate Blood Pressure 147/84 O2 Sat by Pulse 100 Oximetry ED Medical Decision Making - Lab Data Result diagrams: 06/23/20 01:52 06/23/20 01:52 Laboratory Tests 06/23/20 06/23/20 06/23/20 01:52 01:52 01:52 WBC 7.8 RBC 5.17 H Hgb 15.0 H Hct 44.7 H MCV 87 MCH 29 MCHC 34 RDW 12.8 L Plt Count 239 Lymph % (Auto) 22.4 [place] % (Auto) 8.4 H Eos % (Auto) 2.0 Baso % (Auto) 0.6 Lymph # (Auto) 1.8 [place] # (Auto) 0.7 Eos # (Auto) 0.2 Baso # (Auto) 0.0 Seg Neutrophils % 66.6 Seg Neutrophils # 5.2 PT 12.2 INR 0.91 Sodium 141 Potassium 4.4 Chloride 103.5 Carbon Dioxide 25 Anion Gap 17 BUN 15 Creatinine 0.5 L Estimated GFR > 60 BUN/Creatinine Ratio 30 Glucose 107 H Calcium 9.7 Total Creatine Kinase 69 CK-MB (CK-2) 1.6 CK-MB (CK-2) Rel Index 2.3 Troponin T < 0.010 - EKG Data -: EKG Interpreted by Me EKG shows normal: sinus rhythm Rate: normal - EKG Data When compared to previous EKG there are: previous EKG unavailable Interpretation: other (No ischemic changes seen) - Radiology Data Radiology results: report reviewed (Chest x-ray), image reviewed (Chest x-ray) interpreted by me: Chest x-ray-no focal infiltrates, no pneumothorax. No foreign body seen [facility] [address] [place] [address] XRay Report Signed Patient: NAOMY DOBBINS MR#: [id number] : 1970 Acct:[id number] Age/Sex: 49 / F ADM Date: 06/22/20 Loc: ED Attending Dr: Ordering Physician: UCHE CHANDLER MD Date of Service: 06/23/20 Procedure(s): XR chest 1V ap Accession Number(s): [id number] cc: UCHE CHANDLER MD Fluoro Time In Minutes: CHEST 1 VIEW 06/23/2020 1:38 AM INDICATION / CLINICAL INFORMATION: chest tightness. COMPARISON: 04/22/20 FINDINGS: SUPPORT DEVICES: None. HEART / MEDIASTINUM: No significant abnormality. LUNGS / PLEURA: No significant pulmonary or pleural abnormality. No pneumothorax. ADDITIONAL FINDINGS: No significant additional findings. IMPRESSION: 1. No acute findings. No change. Signer Name: Lalita Obregon MD Signed: 06/23/2020 2:40 AM Workstation Name: [id number] Transcribed By: DT Dictated By: Jacky Obregon MD Electronically Authenticated By: Jacky Obregon MD Signed Date/Time: 06/23/20239 DD/ 0239 TD/TT: - Differential Diagnosis ACS, pericarditis, anxiety, GERD Critical care attestation.: If time is entered above; I have spent that time in minutes in the direct care of this critically ill patient, excluding procedure time. ED Disposition Clinical Impression: Chest pain Disposition: OP ADMIT IP TO THIS HOSP Is pt being admited?: Yes Does the pt Need Aspirin: Yes Condition: Fair Instructions: Chest Pain (ED) Referrals: PRIMARY CARE, [Primary Care Provider] - 3-5 Days Time of Disposition: 02:53 (Hospitalist paged (Dr Ramos))
[2020-06-23 02:22] LABS: Basophils % (Auto) 0.6 % (0.0-1.8); Eosinophils # (Auto) 0.2 K/mm3 (0.0-0.4); Hematocrit 44.7 % (30.3-42.9); Lymphocytes # (Auto) 1.8 K/mm3 (1.2-5.4); Lymphocytes % (Auto) 22.4 % (13.4-35.0); Mean Corpuscular HGB Conc 34 % (30-34); Mean Corpuscular Volume 87 fl (79-97); Monocytes # (Auto) 0.7 K/mm3 (0.0-0.8); Monocytes % (Auto) 8.4 % (0.0-7.3); Platelet Count 239 K/mm3 (140-440); Red Blood Count 5.17 M/mm3 (3.65-5.03); Red Cell Distribution Width 12.8 % (13.2-15.2)
[2020-06-23 02:35] LABS: Creatine Kinase MB 1.6 ng/mL (0.0-4.0)
[2020-06-23 02:36] LABS: Blood Urea Nitrogen 15 mg/dL (7-17); Calcium 9.7 mg/dL (8.4-10.2); Hemolysis Index 6
[2020-06-23 02:38] LABS: BUN/Creatinine Ratio 30
[2020-06-23 02:42] LABS: INR 0.91 (0.87-1.13)
--- NOTE | 2020-06-23 02:44 | XRay Report ---
CHEST 1 VIEW 06/23/2020 1:38 AM INDICATION / CLINICAL INFORMATION: chest tightness. COMPARISON: 04/22/20 FINDINGS: SUPPORT DEVICES: None. HEART / MEDIASTINUM: No significant abnormality. LUNGS / PLEURA: No significant pulmonary or pleural abnormality. No pneumothorax. ADDITIONAL FINDINGS: No significant additional findings. IMPRESSION: 1. No acute findings. No change. Signer Name: Lalita Obregon MD Signed: 06/23/2020 2:40 AM Workstation Name: [id number]
[2020-06-23] MEDS ORDERED: ALBUTEROL 2.5 MG/3 ML NEBU IH PRN (03:06)
[2020-06-23] MEDS ORDERED: ACETAMINOPHEN 325 MG TAB PO PRN (03:06)
[2020-06-23] MEDS ORDERED: NALOXONE 0.4 MG/1 ML INJ IV PRN (03:06)
[2020-06-23] MEDS ORDERED: oxyCODONE /ACETAMINOPHEN 5-325MG TAB PO PRN (03:06)
[2020-06-23] MEDS ORDERED: NITROGLYCERIN 0.4 MG TAB SUBL SL PRN (03:12)
[2020-06-23] MEDS ORDERED: MORPHINE 2 MG/1 ML INJ IV PRN (03:12)
[2020-06-23] MEDS ORDERED: ALPRAZolam 0.25 MG TAB PO PRN (04:10)
--- NOTE | 2020-06-23 04:17 | History and Physical Report ---
History of Present Illness Date of examination: 06/23/20 Date of admission: 06/23/20 03:06 Chief complaint: chest pain History of present illness: 49-year-old female with history of asthma, hypertension, sarcoidosis, osteoarthritis who presents to [facility] ED with complaints of anxiety and chest pain. Patient complains of substernal nonradiating for 4/10 chest tightness accompanied by palpitation and shortness of breath for the past 2 to 3 days. Her chest tightness/pain is exacerbated by periods of feeling anxious and heart palpitations. Her chest pain and shortness of breath improves with rest. Patient thinks that her symptoms may be secondary to stress related to self- neglect and periods of over exertion from working extra hours/shifts d/t COVID- 19 pandemic. Denies history of A. fib. Patient last stress test was done in 2016, reports negative results and denies cardiac catheterization. Review of medical record shows patient was seen in the ED on 03/16/2020 and 04/22/2020 with similar complaints. Her symptoms improved with administration of PPI and rest. She is advised to follow-up with her veterinary anatomist (Dr. Burrell [facility]). However patient did not follow-up, and thought that the veterinary anatomist was going to reach out to her. Denies nausea, vomiting, diarrhea, fever, chills, headache, alterations in vision, abdominal pain, constipation, or sore throat Past History Past Medical History: other (Asthma, sarcoidosis, osteoarthritis, hypertension) Past Surgical History: Other (Hysterectomy, cholecystectomy, appendectomy) Social history: , lives with family, full code. denies: smoking, prescription drug abuse, IV drug use Family history: CAD (Biological mother) Medications and Allergies Allergies Allergy/AdvReac Type Severity Reaction Status Date / Time prochlorperazine Allergy Itching Verified 10/19/17 01:48 [From Compazine] sulfamethoxazole Allergy Itching Verified 10/19/17 01:48 [From Bactrim] trimethoprim [From Bactrim] Allergy Itching Verified 10/19/17 01:48 Home Medications Medication Instructions Recorded Confirmed Last Taken Type Albuterol Sulfate [Proventil Hfa] 6.7 gm IH Q6HR PRN #1 hfa.aer.ad 10/20/17 Unknown Rx HYDROcodone/ACETAMINOPHEN [[place] 1 each PO Q6HR PRN #14 tablet 10/20/17 Unknown Rx 5-325 Tablet] Mometasone Furoate [Asmanex Hfa] 13 gm IH BID #1 hfa.aer.ad 10/20/17 Unknown Rx lisinopriL [Zestril TAB] 5 mg PO QDAY #30 tablet 08/16/18 Unknown Rx Famotidine [Pepcid] 20 mg PO Q12H #60 tablet 03/17/19 Unknown Rx Ondansetron [Zofran Odt] 4 mg PO Q6HR PRN #12 tab.rapdis 03/17/19 Unknown Rx Active Meds: Active Medications Acetaminophen (Acetaminophen 325 Mg Tab) 650 mg PO Q4H PRN PRN Reason: Pain MILD(1-3)/Fever >100.5/AMADOR Albuterol (Albuterol 2.5 Mg/3 Ml Nebu) 2.5 mg IH Q3HRT PRN PRN Reason: Shortness Of Breath Aspirin (Aspirin 81 Mg Tab Chew) 81 mg PO QDAY JAMIL Atorvastatin Calcium (Atorvastatin 40 Mg Tab) 40 mg PO QHS JAMIL Enoxaparin Sodium (Enoxaparin 40 Mg/0.4 Ml Inj) 40 mg SUB-Q QDAY JAMIL Lisinopril (Lisinopril 5 Mg Tab) 5 mg PO QDAY JAMIL Morphine Sulfate (Morphine 2 Mg/1 Ml Inj) 2 mg IV Q5MIN PRN PRN Reason: Chest Pain Naloxone HCl (Naloxone 0.4 Mg/1 Ml Inj) 0.1 mg IV Q2MIN PRN PRN Reason: Res Rate </= 8 or 02 SAT < 92% Nitroglycerin (Nitroglycerin 0.4 Mg Tab Subl) 0.4 mg SL Q5M PRN PRN Reason: Chest Pain Ondansetron HCl (Ondansetron 4 Mg/2 Ml Inj) 4 mg IV Q6H PRN PRN Reason: Nausea And Vomiting Oxycodone/Acetaminophen (Oxycodone /Acetaminophen 5-325mg Tab) 1 tab PO Q6H PRN PRN Reason: Pain, Moderate (4-6) Pantoprazole Sodium (Pantoprazole 40 Mg Inj) 40 mg IV QDAY JAMIL Sodium Chloride (Sodium Chloride 0.9% 10 Ml Flush Syringe) 10 ml IV BID JAMIL Sodium Chloride (Sodium Chloride 0.9% 10 Ml Flush Syringe) 10 ml IV PRN PRN PRN Reason: LINE FLUSH Review of Systems All systems: negative (As noted in HPI) Exam - Physical Exam Narrative exam: Physical exam General appearance: Present: No acute distress, alert and oriented 3, pleasant, well-nourished, adult female - EENT Eyes: Present: PERRL, EOM intact ENT: hearing intact, normal dentition - Neck Neck: Present: supple, normal ROM - Respiratory Respiratory effort: Non-labored Respiratory: Clear throughout - Cardiovascular Heart rate: 89 (bpm) Rhythm: Sinus Heart Sounds: Present: S1 & S2. Absent: rub, click - Extremities Extremities: no ischemia, pulses intact, - Peripheral Assessment Peripheral Pulses: within normal limits - Abdominal General gastrointestinal: soft, non-tender, normal bowel sounds - Integumentary Integumentary: Present: warm, dry - Musculoskeletal Musculoskeletal: Able to move all extremities -Neurological Neurological: CN II-XII intact - Psychiatric Psychiatric: cooperative - Constitutional Vitals: Temp Pulse Resp BP Pulse Ox 97.8 F 91 H 17 136/85 94 06/22/20 23:58 06/23/20 03:30 06/23/20 03:30 06/23/20 03:30 06/23/20 03:30 HEART Score - HEART Score History: Slightly suspicious EKG: Normal Age: 45-65 Risk factors: 1-2 risk factors Troponin: Troponin T < 0.010 ng/mL (0.00-0.029) 06/23/20 01:52 Troponin: < normal limit HEART Score: 2 Results - Labs CBC & Chem 7: 06/23/20 01:52 06/23/20 01:52 Labs: Laboratory Last Values WBC 7.8 K/mm3 (4.5-11.0) 06/23/20 01:52 RBC 5.17 M/mm3 (3.65-5.03) H 06/23/20 01:52 Hgb 15.0 gm/dl (10.1-14.3) H 06/23/20 01:52 Hct 44.7 % (30.3-42.9) H 06/23/20 01:52 MCV 87 fl (79-97) 06/23/20 01:52 MCH 29 pg (28-32) 06/23/20 01:52 MCHC 34 % (30-34) 06/23/20 01:52 RDW 12.8 % (13.2-15.2) L 06/23/20 01:52 Plt Count 239 K/mm3 (140-440) 06/23/20 01:52 Lymph % (Auto) 22.4 % (13.4-35.0) 06/23/20 01:52 [place] % (Auto) 8.4 % (0.0-7.3) H 06/23/20 01:52 Eos % (Auto) 2.0 % (0.0-4.3) 06/23/20 01:52 Baso % (Auto) 0.6 % (0.0-1.8) 06/23/20 01:52 Lymph # (Auto) 1.8 K/mm3 (1.2-5.4) 06/23/20 01:52 [place] # (Auto) 0.7 K/mm3 (0.0-0.8) 06/23/20 01:52 Eos # (Auto) 0.2 K/mm3 (0.0-0.4) 06/23/20 01:52 Baso # (Auto) 0.0 K/mm3 (0.0-0.1) 06/23/20 01:52 Seg Neutrophils % 66.6 % (40.0-70.0) 06/23/20 01:52 Seg Neutrophils # 5.2 K/mm3 (1.8-7.7) 06/23/20 01:52 PT 12.2 Sec. (12.2-14.9) 06/23/20 01:52 INR 0.91 (0.87-1.13) 06/23/20 01:52 Sodium 141 mmol/L (137-145) 06/23/20 01:52 Potassium 4.4 mmol/L (3.6-5.0) 06/23/20 01:52 Chloride 103.5 mmol/L (98-107) 06/23/20 01:52 Carbon Dioxide 25 mmol/L (22-30) 06/23/20 01:52 Anion Gap 17 mmol/L 06/23/20 01:52 BUN 15 mg/dL (7-17) 06/23/20 01:52 Creatinine 0.5 mg/dL (0.6-1.2) L 06/23/20 01:52 Estimated GFR > 60 ml/min 06/23/20 01:52 BUN/Creatinine Ratio 30 % 06/23/20 01:52 Glucose 107 mg/dL (65-100) H 06/23/20 01:52 Calcium 9.7 mg/dL (8.4-10.2) 06/23/20 01:52 Total Creatine Kinase 69 units/L (30-135) 06/23/20 01:52 CK-MB (CK-2) 1.6 ng/mL (0.0-4.0) 06/23/20 01:52 CK-MB (CK-2) Rel Index 2.3 (0-4) 06/23/20 01:52 Troponin T < 0.010 ng/mL (0.00-0.029) 06/23/20 01:52 - Imaging and Cardiology Imaging and Cardiology: CXR: FINDINGS: SUPPORT DEVICES: None. HEART / MEDIASTINUM: No significant abnorm ality. LUNGS / PLEURA: No significant pulmonary or pleural abnormality. No pneumothorax. ADDITIONAL FINDINGS: No significant additional findings. IMPRESSION: 1. No acute findings. No change. Assessment and Plan Assessment and plan: Acute atypical chest Pain -Initiate chest pain protocol -Continuous telemetry monitoring -Continue supportive care -Pain mgmt -Troponin negative x 1, will continue to trend -EKG unrevealing for acute ischemic abnormalities -Review of medical record shows patient was seen in ED on 03/16 and 05/03 with similar complaints, advised to follow-up with veterinary anatomist ([facility]), but did not follow-up -Reports negative stress test in 2017 -We will keep n.p.o. and defer additional cardiac work-up per cardiology recommendations -Cardiology consulted Anxiety -Patient complains of feeling anxious, and impending doom -Xanax as needed -May benefit from stress management strategies GERD -R/O -Previously complained of epigastric pain relieved with PPI -We will start Protonix once daily History of asthma -Albuterol as needed HTN -Monitor BP -Resume home hypertensive meds Advance Directives: No VTE prophylaxis?: Chemical Plan of care discussed with patient/family: Yes
[2020-06-23 05:24] LABS: Basophils # (Auto) 0.1 K/mm3 (0.0-0.1); Basophils % (Auto) 0.7 % (0.0-1.8); Eosinophils # (Auto) 0.2 K/mm3 (0.0-0.4); Hematocrit 42.2 % (30.3-42.9); Hemoglobin 14.3 gm/dl (10.1-14.3); Lymphocytes # (Auto) 1.9 K/mm3 (1.2-5.4); Lymphocytes % (Auto) 25.1 % (13.4-35.0); Mean Corpuscular HGB Conc 34 % (30-34); Mean Corpuscular Volume 87 fl (79-97); Monocytes # (Auto) 0.8 K/mm3 (0.0-0.8); Platelet Count 236 K/mm3 (140-440); Red Blood Count 4.88 M/mm3 (3.65-5.03); Red Cell Distribution Width 12.8 % (13.2-15.2)
[2020-06-23 05:46] LABS: Blood Urea Nitrogen 15 mg/dL (7-17); Calcium 9.2 mg/dL (8.4-10.2); Hemolysis Index 12
[2020-06-23 05:57] LABS: BUN/Creatinine Ratio 30
[2020-06-23 06:10] LABS: Chol/HDL Ratio 3.18 %
[2020-06-23] MEDS: ENOXAPARIN 40 MG/0.4 ML INJ SUB-Q SCH ×2 (10:43→21:36)
[2020-06-23] MEDS: PANTOPRAZOLE 40 MG INJ IV SCH ×2 (10:44→21:37)
[2020-06-23] MEDS: LISINOPRIL 5 MG TAB PO SCH (10:44)
--- NOTE | 2020-06-23 11:33 | Consultation ---
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 She is previously unknown to our pracice. Pt presented with complaints of chest pain, L calf pain. Pt presented to the ER describing CP 4/10 sharp, left sided x 1 day, sudden onset yesterday evening while at rest. Chest pain was constant overnight and is still present. Pt states prior to yesterday, she had no chest pain episodes. AMI has been ruled out: Troponin is negative x 2, 12Lead no ischemic changes. Pt denies any N/V, dizziness, weakness, syncope. Past History Past Medical History: sarcoidosis, other (Asthma, sarcoidosis, osteoarthritis, hypertension). denies: anemia, COPD, diabetes Past Surgical History: Other (Hysterectomy, cholecystectomy, appendectomy) Social history: , lives with family, full code. denies: smoking, prescription drug abuse, IV drug use Family history: CAD (Biological mother) Medications and Allergies Allergies Allergy/AdvReac Type Severity Reaction Status Date / Time prochlorperazine Allergy Itching Verified 10/19/17 01:48 [From Compazine] sulfamethoxazole Allergy Itching Verified 10/19/17 01:48 [From Bactrim] trimethoprim [From Bactrim] Allergy Itching Verified 10/19/17 01:48 Home Medications Medication Instructions Recorded Confirmed Last Taken Type Albuterol Sulfate [Proventil Hfa] 6.7 gm IH Q6HR PRN #1 hfa.aer.ad 10/20/17 Unknown Rx HYDROcodone/ACETAMINOPHEN [[place] 1 each PO Q6HR PRN #14 tablet 10/20/17 Unknown Rx 5-325 Tablet] Mometasone Furoate [Asmanex Hfa] 13 gm IH BID #1 hfa.aer.ad 10/20/17 Unknown Rx lisinopriL [Zestril TAB] 5 mg PO QDAY #30 tablet 08/16/18 Unknown Rx Famotidine [Pepcid] 20 mg PO Q12H #60 tablet 03/17/19 Unknown Rx Ondansetron [Zofran Odt] 4 mg PO Q6HR PRN #12 tab.rapdis 03/17/19 Unknown Rx Active Meds: Active Medications Acetaminophen (Acetaminophen 325 Mg Tab) 650 mg PO Q4H PRN PRN Reason: Pain MILD(1-3)/Fever >100.5/AMADOR Last Admin: 06/23/20 10:17 Dose: 650 mg Documented by: Albuterol (Albuterol 2.5 Mg/3 Ml Nebu) 2.5 mg IH Q3HRT PRN PRN Reason: Shortness Of Breath Alprazolam (Alprazolam 0.25 Mg Tab) 0.25 mg PO Q8H PRN PRN Reason: Anxiety Aspirin (Aspirin 81 Mg Tab Chew) 81 mg PO QDAY JAMIL Atorvastatin Calcium (Atorvastatin 40 Mg Tab) 40 mg PO QHS JAMIL Enoxaparin Sodium (Enoxaparin 40 Mg/0.4 Ml Inj) 40 mg SUB-Q QDAY JAMIL Lisinopril (Lisinopril 5 Mg Tab) 5 mg PO QDAY [facility] Morphine Sulfate (Morphine 2 Mg/1 Ml Inj) 2 mg IV Q5MIN PRN PRN Reason: Chest Pain Naloxone HCl (Naloxone 0.4 Mg/1 Ml Inj) 0.1 mg IV Q2MIN PRN PRN Reason: Res Rate </= 8 or 02 SAT < 92% Nitroglycerin (Nitroglycerin 0.4 Mg Tab Subl) 0.4 mg SL Q5M PRN PRN Reason: Chest Pain Ondansetron HCl (Ondansetron 4 Mg/2 Ml Inj) 4 mg IV Q6H PRN PRN Reason: Nausea And Vomiting Oxycodone/Acetaminophen (Oxycodone /Acetaminophen 5-325mg Tab) 1 tab PO Q6H PRN PRN Reason: Pain, Moderate (4-6) Pantoprazole Sodium (Pantoprazole 40 Mg Inj) 40 mg IV QDAY [facility] Sodium Chloride (Sodium Chloride 0.9% 10 Ml Flush Syringe) 10 ml IV BID [facility] Last Admin: 06/23/20 10:17 Dose: 10 ml Documented by: Sodium Chloride (Sodium Chloride 0.9% 10 Ml Flush Syringe) 10 ml IV PRN PRN PRN Reason: LINE FLUSH Review of Systems Constitutional: no weight loss, no weight gain, no fever, no chills, no sweats Ears, nose, mouth and throat: no ear pain, no ear discharge, no nose pain, no nasal congestion, no nasal discharge, no sinus pressure, no sinus pain Cardiovascular: chest pain, shortness of breath, no orthopnea, no palpitations, no rapid/irregular heart beat, no edema, no syncope, no lightheadedness Respiratory: shortness of breath, no cough, no hemoptysis, no dyspnea on exertion, no pain Gastrointestinal: no abdominal pain, no nausea, no vomiting, no diarrhea, no constipation Musculoskeletal: no neck stiffness, no neck pain, no shooting arm pain, no arm numbness/tingling, no low back pain, no shooting leg pain, no leg numbness/tingling Integumentary: no rash, no pruritis, no redness, no sores, no wounds Neurological: no head injury, no transient paralysis, no paralysis, no weakness, no parathesias, no numbness, no tingling, no seizures, no syncope Psychiatric: no anxiety Endocrine: no cold intolerance, no heat intolerance Hematologic/Lymphatic: no easy bruising, no easy bleeding Allergic/Immunologic: no urticaria Physical Examination Last Vital Signs Temp 98.1 F 06/23/20 07:47 Pulse 85 06/23/20 07:58 Resp 18 06/23/20 07:47 BP 130/82 06/23/20 07:47 Pulse Ox 98 06/23/20 07:47 General appearance: no acute distress HEENT: Positive: PERRL Neck: Positive: neck supple, trachea midline Cardiac: Positive: Reg Rate and Rhythm, S1/S2 Lungs: Positive: clear to auscultation, No Wheeze, Rales, Rhonchi Neuro: Positive: Grossly Intact Abdomen: Positive: Unremarkable Skin: Negative: Rash, Wound Musculoskeletal: No Pain Extremities: Present: upper extr. pulses, lower extr. pulses Results 06/23/20 05:06 06/23/20 05:06 Cardiac Enzymes 06/23/20 Range/Units 01:52 CK-MB (CK-2) 1.6 (0.0-4.0) ng/mL Coagulation 06/23/20 Range/Units 01:52 PT 12.2 (12.2-14.9) Sec. INR 0.91 (0.87-1.13) Lipids 06/23/20 Range/Units 05:06 Triglycerides 52 (2-149) mg/dL Cholesterol 153 (50-199) mg/dL HDL Cholesterol 48 (40-59) mg/dL Cholesterol/HDL Ratio 3.18 % CBC 06/23/20 06/23/20 Range/Units 01:52 05:06 WBC 7.8 7.7 (4.5-11.0) K/mm3 RBC 5.17 H 4.88 (3.65-5.03) M/mm3 Hgb 15.0 H 14.3 (10.1-14.3) gm/dl Hct 44.7 H 42.2 (30.3-42.9) % Plt Count 239 236 (140-440) K/mm3 Lymph # (Auto) 1.8 1.9 (1.2-5.4) K/mm3 [place] # (Auto) 0.7 0.8 (0.0-0.8) K/mm3 Eos # (Auto) 0.2 0.2 (0.0-0.4) K/mm3 Baso # (Auto) 0.0 0.1 (0.0-0.1) K/mm3 Comprehensive Metabolic Panel 06/23/20 06/23/20 Range/Units 01:52 05:06 Sodium 141 138 (137-145) mmol/L Potassium 4.4 3.8 (3.6-5.0) mmol/L Chloride 103.5 103.5 (98-107) mmol/L Carbon Dioxide 25 21 L (22-30) mmol/L BUN 15 15 (7-17) mg/dL Creatinine 0.5 L 0.5 L (0.6-1.2) mg/dL Glucose 107 H 109 H (65-100) mg/dL Calcium 9.7 9.2 (8.4-10.2) mg/dL - Imaging and Cardiology Echo: pending EKG: report reviewed, image reviewed EKG interpretations - Telemetry EKG Rhythm: Sinus Rhythm - EKG Sinus rhythms and dysrhythmias: sinus rhythm Assessment and Plan Pt presented to the ER describing CP 4/10 sharp, left sided x 1 day, sudden onset while at rest. Pt was not exerting herself at time of onset. She is currently having chest pain. AMI has been ruled out: Troponin is negative x 2, 12L no ischemic changes. 10/19/2017 MPI Stress Test: EF 83%. no ischemia, normal LV performance. 10/19/2017 Echo: EF 55-60%, No significant abnormalities. s/p Treadmill MPI Stress Test: Good exercise tolerance, nuclear imaging negative for ischemia, normal EF. However pt still with complaints of persistent chest pain. Coronary angiography for definitive diagnosis. Indications, potential risks, and benefits of LHC reviewed with pt and she is agreeable to proceed with LHC in AM. NPO after midnight. f/u TTE This pt was seen in conjunction with Dr Rosenberg, who agrees with this assessment and plan of care. 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
--- NOTE | 2020-06-23 12:36 | Progress Note ---
Assessment and Plan Assessment and plan: --Acute atypical chest Pain; Serial cardiac enzymes x3 - Patient underwent stress test negative study However as patient has persistent chest pain Cardiology recommended left heart catheterization scheduled for tomorrow Continue current cardiac medications N.p.o. from midnight --General anxiety; Patient is little fidgety and anxious, low-dose Xanax as needed If no improvement, may refer her to psych/psychologist for further evaluation and management as outpatient --GERD; Protonix --History of bronchial asthma; not on home oxygen Oxygen titrate O2 sats to more than 90%, albuterol inhaler as needed --Hypertension; moderate control Continue current antihypertensives and as needed medications --Obesity; BMI 32.1 Advised dietary modification exercise as tolerated and weight reduction when medically stable Advance Directives: No VTE prophylaxis?: Chemical Plan of care discussed with patient/family: Yes History Interval history: I have seen and examined the patient at the bedside Patient's chart and medications reviewed Admitted with chest pain, underwent stress test which was negative for reversible ischemia However patient continues to have chest pain, cardiology recommended left heart catheterization tomorrow Vital signs noted Hospitalist Physical - Constitutional Vitals: Temp Pulse Resp BP Pulse Ox 98.1 F 85 18 126/72 98 06/23/20 07:47 06/23/20 07:58 06/23/20 07:47 06/23/20 11:34 06/23/20 07:47 General appearance: Present: no acute distress, well-nourished, obese - EENT Eyes: Present: PERRL, EOM intact - Neck Neck: Present: supple, normal ROM - Respiratory Respiratory effort: normal Respiratory: bilateral: diminished, negative: rales, rhonchi, wheezing - Cardiovascular Rhythm: regular Heart Sounds: Present: S1 & S2 - Extremities Extremities: no ischemia, No edema - Abdominal General gastrointestinal: soft, non-tender, non-distended, normal bowel sounds - Integumentary Integumentary: Present: clear, warm - Psychiatric Psychiatric: appropriate mood/affect, cooperative - Neurologic Neurologic: CNII-XII intact, moves all extremities HEART Score - HEART Score EKG: Normal Age: 45-65 Risk factors: 1-2 risk factors Troponin: Troponin T < 0.010 ng/mL (0.00-0.029) 06/23/20 08:04 Troponin: < normal limit Results - Labs CBC & Chem 7: 06/23/20 05:06 06/23/20 05:06 Labs: Laboratory Last Values WBC 7.7 K/mm3 (4.5-11.0) 06/23/20 05:06 RBC 4.88 M/mm3 (3.65-5.03) 06/23/20 05:06 Hgb 14.3 gm/dl (10.1-14.3) 06/23/20 05:06 Hct 42.2 % (30.3-42.9) 06/23/20 05:06 MCV 87 fl (79-97) 06/23/20 05:06 MCH 29 pg (28-32) 06/23/20 05:06 MCHC 34 % (30-34) 06/23/20 05:06 RDW 12.8 % (13.2-15.2) L 06/23/20 05:06 Plt Count 236 K/mm3 (140-440) 06/23/20 05:06 Lymph % (Auto) 25.1 % (13.4-35.0) 06/23/20 05:06 [place] % (Auto) 10.0 % (0.0-7.3) H 06/23/20 05:06 Eos % (Auto) 3.0 % (0.0-4.3) 06/23/20 05:06 Baso % (Auto) 0.7 % (0.0-1.8) 06/23/20 05:06 Lymph # (Auto) 1.9 K/mm3 (1.2-5.4) 06/23/20 05:06 [place] # (Auto) 0.8 K/mm3 (0.0-0.8) 06/23/20 05:06 Eos # (Auto) 0.2 K/mm3 (0.0-0.4) 06/23/20 05:06 Baso # (Auto) 0.1 K/mm3 (0.0-0.1) 06/23/20 05:06 Seg Neutrophils % 61.2 % (40.0-70.0) 06/23/20 05:06 Seg Neutrophils # 4.7 K/mm3 (1.8-7.7) 06/23/20 05:06 PT 12.2 Sec. (12.2-14.9) 06/23/20 01:52 INR 0.91 (0.87-1.13) 06/23/20 01:52 Sodium 138 mmol/L (137-145) 06/23/20 05:06 Potassium 3.8 mmol/L (3.6-5.0) 06/23/20 05:06 Chloride 103.5 mmol/L (98-107) 06/23/20 05:06 Carbon Dioxide 21 mmol/L (22-30) L 06/23/20 05:06 Anion Gap 17 mmol/L 06/23/20 05:06 BUN 15 mg/dL (7-17) 06/23/20 05:06 Creatinine 0.5 mg/dL (0.6-1.2) L 06/23/20 05:06 Estimated GFR > 60 ml/min 06/23/20 05:06 BUN/Creatinine Ratio 30 % 06/23/20 05:06 Glucose 109 mg/dL (65-100) H 06/23/20 05:06 Calcium 9.2 mg/dL (8.4-10.2) 06/23/20 05:06 Total Creatine Kinase 69 units/L (30-135) 06/23/20 01:52 CK-MB (CK-2) 1.6 ng/mL (0.0-4.0) 06/23/20 01:52 CK-MB (CK-2) Rel Index 2.3 (0-4) 06/23/20 01:52 Troponin T < 0.010 ng/mL (0.00-0.029) 06/23/20 08:04 Triglycerides 52 mg/dL (2-149) 06/23/20 05:06 Cholesterol 153 mg/dL (50-199) 06/23/20 05:06 LDL Cholesterol Direct 108 mg/dL (50-130) 06/23/20 05:06 HDL Cholesterol 48 mg/dL (40-59) 06/23/20 05:06 Cholesterol/HDL Ratio 3.18 % 06/23/20 05:06 Active Medications - Current Medications Current Medications: Generic Name Dose Route Start Last Admin Trade Name Freq PRN Reason Stop Dose Admin Acetaminophen 650 mg 06/23/20 03:06 06/23/20 10:17 Acetaminophen 325 Mg Tab PO 650 mg Q4H PRN Administration Pain MILD(1-3)/Fever >100.5/AMADOR Albuterol 2.5 mg 06/23/20 03:06 Albuterol 2.5 Mg/3 Ml Nebu IH Q3HRT PRN Shortness Of Breath Alprazolam 0.25 mg 06/23/20 04:10 Alprazolam 0.25 Mg Tab PO Q8H PRN Anxiety Aspirin 81 mg 06/24/20 10:00 Aspirin 81 Mg Tab Chew PO QDAY [facility] Atorvastatin Calcium 40 mg 06/23/20 22:00 Atorvastatin 40 Mg Tab PO QHS [facility] Enoxaparin Sodium 40 mg 06/23/20 10:00 Enoxaparin 40 Mg/0.4 Ml Inj SUB-Q QDAY [facility] Lisinopril 5 mg 06/23/20 10:00 Lisinopril 5 Mg Tab PO QDAY [facility] Morphine Sulfate 2 mg 06/23/20 03:12 Morphine 2 Mg/1 Ml Inj IV Q5MIN PRN Chest Pain Naloxone HCl 0.1 mg 06/23/20 03:06 Naloxone 0.4 Mg/1 Ml Inj IV Q2MIN PRN Res Rate </= 8 or 02 SAT < 92% Nitroglycerin 0.4 mg 06/23/20 03:12 Nitroglycerin 0.4 Mg Tab Subl SL Q5M PRN Chest Pain Ondansetron HCl 4 mg 06/23/20 03:06 Ondansetron 4 Mg/2 Ml Inj IV Q6H PRN Nausea And Vomiting Oxycodone/Acetaminophen 1 tab 06/23/20 03:06 Oxycodone /Acetaminophen 5-325mg Tab PO Q6H PRN Pain, Moderate (4-6) Pantoprazole Sodium 40 mg 06/23/20 10:00 Pantoprazole 40 Mg Inj IV QDAY JAMIL Sodium Chloride 10 ml 06/23/20 10:00 06/23/20 10:17 Sodium Chloride 0.9% 10 Ml Flush Syringe IV 10 ml BID [facility] Administration Sodium Chloride 10 ml 06/23/20 03:06 Sodium Chloride 0.9% 10 Ml Flush Syringe IV PRN PRN LINE FLUSH Nutrition/Malnutrition Assess - Dietary Evaluation Nutrition/Malnutrition Findings: Nutrition Notes Start: 06/23/20 08:51 Freq: Status: Active Protocol: Document 06/23/20 08:52 CW (Rec: 06/23/20 09:01 CW [id number]) Nutrition Notes Need for Assessment generated from: engineering laboratory technician,MST Initial or Follow up Assessment Current Diagnosis Hypertension Other Pertinent Diagnosis SOB, Abd pain, GERD Current Diet NPO Labs/Tests BP 130/80 Pertinent Medications Reviewed Height 5 ft 1 in Weight 77 kg [place] Body Weight (kg) 47.72 BMI 32.1 Weight change and time frame WEIGHT CHANGE NOTED Weight Status Obese Burn Absent Trauma Absent Minimum of two criteria No physical signs of malnutrition Is patient on ventilator? No Is Patient Ambulatory and/or Out of Bed Yes REE-([place]-ambulatory/OOB) [ 1738.594 [id number]] Kcal/Kg value to use for calculation 16 Approximate Energy Requirements Using 1232 kcal/Kg Calculation Used for Recommendations Kcal/kg Additional Notes protein needs: 50 - 62 g (0.8 - 1g/kg AdjBW 62.36) fluid needs 1 ml/kcal or per MD order Nutrition Intervention Change Diet Order: Advanced diet as medically feasible Goal #1 diet advancement Goal #2 maintain PO [place] 80% of kcal and protein needs once diet advanced Anticipated Discharge Needs: unable to determine at this time Follow-Up By: 06/25/20 Additional Comments F/U diet advancement
[2020-06-23] MEDS ORDERED: SODIUM CHLORIDE 0.9% 500 ML 500 ML IV SCH (14:00)
[2020-06-23] MEDS: ONDANSETRON 4 MG/2 ML INJ IV PRN (19:47)
[2020-06-23] MEDS: METOPROLOL TARTRATE 25 MG TAB PO SCH (21:36)
[2020-06-23] MEDS ORDERED: LORazepam 2 MG/ML VIAL IV ONE (22:30)
[2020-06-24 05:27] LABS: Basophils % (Auto) 0.7 % (0.0-1.8); Eosinophils # (Auto) 0.1 K/mm3 (0.0-0.4); Eosinophils % (Auto) 1.9 % (0.0-4.3); Hemoglobin 14.4 gm/dl (10.1-14.3); Lymphocytes # (Auto) 1.6 K/mm3 (1.2-5.4); Lymphocytes % (Auto) 25.8 % (13.4-35.0); Mean Corpuscular HGB Conc 33 % (30-34); Mean Corpuscular Volume 87 fl (79-97); Monocytes # (Auto) 0.6 K/mm3 (0.0-0.8); Platelet Count 223 K/mm3 (140-440); Red Blood Count 4.94 M/mm3 (3.65-5.03); Red Cell Distribution Width 12.7 % (13.2-15.2)
[2020-06-24 05:34] LABS: INR 1.04 (0.87-1.13)
[2020-06-24 05:50] LABS: Blood Urea Nitrogen 14 mg/dL (7-17); Calcium 9.3 mg/dL (8.4-10.2); Hemolysis Index 26
[2020-06-24 05:52] LABS: BUN/Creatinine Ratio 23
[2020-06-24] MEDS ORDERED: SODIUM CHLORIDE 0.9% 500 ML 500 ML ONE (07:08)
[2020-06-24] MEDS ORDERED: ASPIRIN EC 325 MG TAB PO ONE (07:08)
[2020-06-24] MEDS ORDERED: ASPIRIN 81 MG TAB CHEW ONE (07:25)
[2020-06-24] MEDS: ASPIRIN 81 MG TAB CHEW PO SCH ×2 (07:28→13:46)
[2020-06-24] MEDS ORDERED: HEPARIN/NS 5000 UNIT/500ML 1,000 ML IR ONE (07:28)
[2020-06-24] MEDS ORDERED: SODIUM CHLORIDE 0.9% 500 ML 500 ML IV SCH (08:00)
[2020-06-24] MEDS: fentaNYL 100 MCG/2 ML INJ ONE ×2 (08:05→08:08)
[2020-06-24] MEDS: MIDAZOLAM 2 MG/2 ML INJ ONE ×2 (08:05→08:08)
[2020-06-24] MEDS: LIDOCAINE (2%) 20 MG/1 ML VIAL 20 ML MDV INFILTRATI ONE ×2 (08:05→08:13)
[2020-06-24] MEDS: HEPARIN 10,000 UNITS/10 ML VIAL ONE ×3 (08:06→08:25)
[2020-06-24] MEDS: VERAPAMIL 5 MG/2 ML INJ ONE ×2 (08:08→08:14)
[2020-06-24] MEDS ORDERED: HEPARIN 10,000 UNITS/10 ML VIAL ONE (08:23)
[2020-06-24] MEDS ORDERED: TICAGRELOR 90 MG TAB ONE (08:52)
[2020-06-24] MEDS ORDERED: ALUM-MAG HYDROXIDE-SIMETHICONE 200-200-20MG/5ML ORAL LIQD 30 ML ONE (08:53)
--- NOTE | 2020-06-24 10:44 | Progress Note ---
Assessment and Plan tte reviewed - EF 50-55%, no significant abnormalities. S/p LHC today via RRA with PCI to circ - see dictated cath report. Pt reports near resolution of chest pain s/p PCI. Initiate DAPT with ASA and Brilinta, cont lipitor, BB, lisinopril. Cont observation overnight, anticipate d/c in AM. This pt has been seen in conjunction with Dr Rosenberg, who agrees with the assessment and plan of care. 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 no current complaints. tele reviewed - in SR HR 60s. Objective Last Vital Signs Temp 98.3 F 06/24/20 09:11 Pulse 82 06/24/20 11:45 Resp 16 06/24/20 11:45 BP 121/80 06/24/20 11:45 Pulse Ox 97 06/24/20 11:45 - Physical Examination General: No Apparent Distress HEENT: Positive: PERRL Neck: Positive: neck supple, trachea midline Cardiac: Positive: Reg Rate and Rhythm, S1/S2 Lungs: Positive: Decreased Breath Sounds Neuro: Positive: Grossly Intact Abdomen: Positive: Unremarkable Skin: Negative: Rash, Wound Musculoskeletal: No Pain Extremities: Present: upper extr. pulses, lower extr. pulses - Labs and Meds Coagulation 06/24/20 Range/Units 04:46 PT 13.5 (12.2-14.9) Sec. INR 1.04 (0.87-1.13) CBC 06/24/20 Range/Units 04:46 WBC 6.3 (4.5-11.0) K/mm3 RBC 4.94 (3.65-5.03) M/mm3 Hgb 14.4 H (10.1-14.3) gm/dl Hct 43.0 H (30.3-42.9) % Plt Count 223 (140-440) K/mm3 Lymph # (Auto) 1.6 (1.2-5.4) K/mm3 [place] # (Auto) 0.6 (0.0-0.8) K/mm3 Eos # (Auto) 0.1 (0.0-0.4) K/mm3 Baso # (Auto) 0.0 (0.0-0.1) K/mm3 Comprehensive Metabolic Panel 06/24/20 Range/Units 04:46 Sodium 141 (137-145) mmol/L Potassium 4.6 D (3.6-5.0) mmol/L Chloride 106.7 (98-107) mmol/L Carbon Dioxide 24 (22-30) mmol/L BUN 14 (7-17) mg/dL Creatinine 0.6 (0.6-1.2) mg/dL Glucose 99 (65-100) mg/dL Calcium 9.3 (8.4-10.2) mg/dL - Imaging and Cardiology EKG: report reviewed, image reviewed Echo: report reviewed - Telemetry EKG Rhythm: Sinus Rhythm - EKG Sinus rhythms and dysrhythmias: sinus rhythm
[2020-06-24] MEDS: PANTOPRAZOLE 40 MG INJ IV SCH (10:46)
[2020-06-24] MEDS: ENOXAPARIN 40 MG/0.4 ML INJ SUB-Q SCH (10:46)
[2020-06-24] MEDS ORDERED: HYDROcodone/ACETAMINOPHEN 5-325 MG TAB PO PRN (12:12)
[2020-06-24] MEDS: METOPROLOL TARTRATE 25 MG TAB PO SCH ×2 (13:46→22:37)
[2020-06-24] MEDS: LISINOPRIL 5 MG TAB PO SCH (13:47)
--- NOTE | 2020-06-24 19:09 | Progress Note ---
Assessment and Plan Assessment and plan: --Persistent chest pain; 06/23/2020 stress test negative for ischemia and normal EF Due to persistent chest pain patient underwent left heart catheterization today 06/24/2020 ;[facility] :s/p PCI to circumflex, continue current cardiac medications Patient feels slightly better, overnight observation per cardiology DC a.m. if stable --Acute atypical chest Pain; present on admission Normal stress test, normal EF Status post cath PCI to circumflex Started on dual antiplatelet therapy, beta-blockers SULAIMAN inhibitors Nitrates and statins --General anxiety; Patient is little fidgety and anxious, low-dose Xanax as needed If no improvement, may refer her to psych/psychologist for further evaluation and management as outpatient --GERD; Protonix --History of bronchial asthma; not on home oxygen Oxygen titrate O2 sats to more than 90%, albuterol inhaler as needed --Hypertension; moderate control Continue current antihypertensives and as needed medications --Obesity; BMI 32.1 Advised dietary modification exercise as tolerated and weight reduction when medically stable Advance Directives: No VTE prophylaxis?: Chemical Plan of care discussed with patient/family: Yes We will closely monitor the patient and adjust management as needed Plan of care reviewed with patient and nurse 06/23/2020; stress test; negative for ischemia, normal EF, patient had persistent chest pain, scheduled for left heart cath 06/24/2020; patient underwent left heart cath, status post PCI to circumflex, placed on dual antiplatelets And rest of the cardiac medications, close observation tonight and possible DC in a.m. if stable History Interval history: Seen and examined the patient this evening Patient had left heart catheterization status post PCI to circumflex this afternoon Patient tolerated the procedure well, placed on dual antiplatelet therapy Patient feels better mild chest pain Denies nausea vomiting or abdominal pain Vital signs reviewed Hospitalist Physical - Constitutional Vitals: Temp Pulse Resp BP Pulse Ox 97.9 F 77 16 122/83 97 06/24/20 17:17 06/24/20 18:30 06/24/20 13:44 06/24/20 17:17 06/24/20 17:17 General appearance: Present: no acute distress, well-nourished, obese - EENT Eyes: Present: PERRL, EOM intact - Neck Neck: Present: supple, normal ROM - Respiratory Respiratory effort: normal Respiratory: bilateral: diminished, negative: rales, rhonchi, wheezing - Cardiovascular Rhythm: regular Heart Sounds: Present: S1 & S2 - Extremities Extremities: no ischemia, No edema - Abdominal General gastrointestinal: soft, non-tender, non-distended, normal bowel sounds - Integumentary Integumentary: Present: clear, warm - Psychiatric Psychiatric: appropriate mood/affect, cooperative - Neurologic Neurologic: moves all extremities HEART Score - HEART Score EKG: Normal Age: 45-65 Risk factors: 1-2 risk factors Troponin: Troponin T < 0.010 ng/mL (0.00-0.029) 06/23/20 08:04 Troponin: < normal limit Results - Labs CBC & Chem 7: 06/24/20 04:46 06/24/20 04:46 Labs: Laboratory Last Values WBC 6.3 K/mm3 (4.5-11.0) 06/24/20 04:46 RBC 4.94 M/mm3 (3.65-5.03) 06/24/20 04:46 Hgb 14.4 gm/dl (10.1-14.3) H 06/24/20 04:46 Hct 43.0 % (30.3-42.9) H 06/24/20 04:46 MCV 87 fl (79-97) 06/24/20 04:46 MCH 29 pg (28-32) 06/24/20 04:46 MCHC 33 % (30-34) 06/24/20 04:46 RDW 12.7 % (13.2-15.2) L 06/24/20 04:46 Plt Count 223 K/mm3 (140-440) 06/24/20 04:46 Lymph % (Auto) 25.8 % (13.4-35.0) 06/24/20 04:46 [place] % (Auto) 9.0 % (0.0-7.3) H 06/24/20 04:46 Eos % (Auto) 1.9 % (0.0-4.3) 06/24/20 04:46 Baso % (Auto) 0.7 % (0.0-1.8) 06/24/20 04:46 Lymph # (Auto) 1.6 K/mm3 (1.2-5.4) 06/24/20 04:46 [place] # (Auto) 0.6 K/mm3 (0.0-0.8) 06/24/20 04:46 Eos # (Auto) 0.1 K/mm3 (0.0-0.4) 06/24/20 04:46 Baso # (Auto) 0.0 K/mm3 (0.0-0.1) 06/24/20 04:46 Seg Neutrophils % 62.6 % (40.0-70.0) 06/24/20 04:46 Seg Neutrophils # 3.9 K/mm3 (1.8-7.7) 06/24/20 04:46 PT 13.5 Sec. (12.2-14.9) 06/24/20 04:46 INR 1.04 (0.87-1.13) 06/24/20 04:46 Sodium 141 mmol/L (137-145) 06/24/20 04:46 Potassium 4.6 mmol/L (3.6-5.0) D 06/24/20 04:46 Chloride 106.7 mmol/L (98-107) 06/24/20 04:46 Carbon Dioxide 24 mmol/L (22-30) 06/24/20 04:46 Anion Gap 15 mmol/L 06/24/20 04:46 BUN 14 mg/dL (7-17) 06/24/20 04:46 Creatinine 0.6 mg/dL (0.6-1.2) 06/24/20 04:46 Estimated GFR > 60 ml/min 06/24/20 04:46 BUN/Creatinine Ratio 23 % 06/24/20 04:46 Glucose 99 mg/dL (65-100) 06/24/20 04:46 Calcium 9.3 mg/dL (8.4-10.2) 06/24/20 04:46 Total Creatine Kinase 69 units/L (30-135) 06/23/20 01:52 CK-MB (CK-2) 1.6 ng/mL (0.0-4.0) 06/23/20 01:52 CK-MB (CK-2) Rel Index 2.3 (0-4) 06/23/20 01:52 Troponin T < 0.010 ng/mL (0.00-0.029) 06/23/20 08:04 Triglycerides 52 mg/dL (2-149) 06/23/20 05:06 Cholesterol 153 mg/dL (50-199) 06/23/20 05:06 LDL Cholesterol Direct 108 mg/dL (50-130) 06/23/20 05:06 HDL Cholesterol 48 mg/dL (40-59) 06/23/20 05:06 Cholesterol/HDL Ratio 3.18 % 06/23/20 05:06 - Diagnostic Impressions Diagnostic Impressions: Echocardiogram 06/23/20 13:15 Transthoracic Echocardiogram Indication: chest pain BP: 126/72 HR: 80 Conclusions *The left ventricular chamber size is normal. *There is no left ventricular hypertrophy. *The estimated ejection fraction is 50-55%. *Global left ventricular systolic function is normal. *Normal left ventricular diastolic filling is observed. *The right ventricular global systolic function is normal. *The right ventricular systolic pressure is calculated at 13 mmHg. Findings Procedure Info: The study quality is technically difficult. The study is technically limited due to poor acoustic windows. Left Ventricle: The left ventricular chamber size is normal. There is no left ventricular hypertrophy. Global left ventricular wall motion and contractility are within normal limits. Global left ventricular systolic function is normal. The estimated ejection fraction is 50-55%. Normal left ventricular diastolic filling is observed. Left Atrium: The left atrial chamber size is normal. Right Ventricle: The right ventricular cavity size is normal. The right ventricular global systolic function is normal. Right Atrium: The right atrial cavity size is normal. Aortic Valve: The aortic valve is trileaflet. There is no evidence of aortic valve thickening. There is no evidence of aortic regurgitation. Mitral Valve: The mitral valve leaflets do not appear thickened. There is trace of mitral regurgitation. Tricuspid Valve: The tricuspid valve leaflets are normal. There is trace tricuspid regurgitation. The right ventricular systolic pressure is calculated at 13 mmHg. Pulmonic Valve: There is no evidence of pulmonic valve thickening. There is trace pulmonic regurgitation. Pericardium: There is no pericardial effusion. Aorta: The aorta appears normal. Venous: The inferior vena cava appears normal in size. There is a greater than 50% respiratory change in the inferior vena cava dimension. Measurements Chambers 2D Name Value Normal Range IVSd (2D) 0.9 cm (0.6 - 1.1) LVPWd (2D) 0.78 cm (0.6 - 1.1) LVIDd (2D) 4.72 cm (3.7 - 5.6) LVIDs (2D) 3.9 cm (2 - 3.8) LV FS (2D) 17.49 % - EF Teichholz (2D) 36.46 % - Ao root diameter (2D) 2.83 cm (2 - 3.7) Volumes/Mass Name Value Normal Range LA ESV SP 4CH (A/L) 29.71 ml - LA ESV SP 2CH (A/L) 58.03 ml - LA ESV BP (A/L) 45.65 ml - LA ESV BP (A/L) index 25.94 ml/m2 - LA ESV SP 4CH (MOD) 27.81 ml - LA ESV SP 2CH (MOD) 57.29 ml - LA ESV BP (MOD) 43.7 ml - LA ESV BP (MOD) index 24.83 ml/m2 - Diastolic/Systolic Function Name Value Normal Range MV E-wave Vmax 1.07 m/sec - MV deceleration time 161.94 msec - MV A-wave Vmax 1.06 m/sec - MV E:A ratio 1.01 ratio - Aortic Valve Name Value Normal Range AV Vmax 1.43 m/sec - AV VTI 28.92 cm - AV peak gradient 8.23 mmHg - AV mean gradient 4.45 mmHg - LVOT diameter 1.91 cm - LVOT Vmax 1.54 m/sec - LVOT VTI 30.81 cm - LVOT peak gradient 9.52 mmHg - LVOT mean gradient 4.78 mmHg - SV LVOT 88.03 ml - PAWAN (continuity Vmax) 3.07 cm2 - PAWAN (continuity VTI) 3.04 cm2 - Ascending Ao 2.75 cm - Tricuspid Valve Name Value Normal Range TR Vmax 1.57 m/sec - TR peak gradient 10 mmHg - RAP 3 mmHg - RVSP 13 mmHg - IVC diameter 1.43 cm (1.2 - 2.3) Pulmonic Valve/Qp:Qs Name Value Normal Range PV Vmax 0.85 m/sec - PV peak gradient 2.89 mmHg - SD end-diastolic Vmax 1.35 m/sec - PV acceleration time 133.21 msec - Active Medications - Current Medications Current Medications: Generic Name Dose Route Start Last Admin Trade Name Freq PRN Reason Stop Dose Admin Acetaminophen 650 mg 06/23/20 03:06 06/23/20 10:17 Acetaminophen 325 Mg Tab PO 650 mg Q4H PRN Administration Pain MILD(1-3)/Fever >100.5/AMADOR Hydrocodone Bitart/Acetaminophen 1 each 06/24/20 12:12 Hydrocodone/Acetaminophen 5-325 Mg Tab PO Q6H PRN Pain, Moderate (4-6) Albuterol 2.5 mg 06/23/20 03:06 Albuterol 2.5 Mg/3 Ml Nebu IH Q3HRT PRN Shortness Of Breath Alprazolam 0.25 mg 06/23/20 04:10 Alprazolam 0.25 Mg Tab PO Q8H PRN Anxiety Aspirin 81 mg 06/24/20 10:00 06/24/20 13:46 Aspirin 81 Mg Tab Chew PO Not Given QDAY [facility] Atorvastatin Calcium 40 mg 06/23/20 22:00 06/23/20 21:37 Atorvastatin 40 Mg Tab PO 40 mg QHS [facility] Administration Enoxaparin Sodium 40 mg 06/23/20 10:00 06/24/20 10:46 Enoxaparin 40 Mg/0.4 Ml Inj SUB-Q Not Given QDAY [facility] Sodium Chloride 500 mls @ 50 mls/hr 06/24/20 08:00 Nacl 0.9% 500 Ml IV DIRECT [facility] Lisinopril 5 mg 06/23/20 10:00 06/24/20 13:47 Lisinopril 5 Mg Tab PO Not Given QDAY [facility] Metoprolol Tartrate 25 mg 06/23/20 22:00 06/24/20 13:46 Metoprolol Tartrate 25 Mg Tab PO Not Given BID [facility] Morphine Sulfate 2 mg 06/23/20 03:12 06/23/20 19:47 Morphine 2 Mg/1 Ml Inj IV 2 mg Q5MIN PRN Administration Chest Pain Naloxone HCl 0.1 mg 06/23/20 03:06 Naloxone 0.4 Mg/1 Ml Inj IV Q2MIN PRN Res Rate </= 8 or 02 SAT < 92% Nitroglycerin 0.4 mg 06/23/20 03:12 Nitroglycerin 0.4 Mg Tab Subl SL Q5M PRN Chest Pain Ondansetron HCl 4 mg 06/23/20 03:06 06/23/20 19:47 Ondansetron 4 Mg/2 Ml Inj IV 4 mg Q6H PRN Administration Nausea And Vomiting Oxycodone/Acetaminophen 1 tab 06/23/20 03:06 06/24/20 09:22 Oxycodone /Acetaminophen 5-325mg Tab PO 1 tab Q6H PRN Administration Pain, Moderate (4-6) Pantoprazole Sodium 40 mg 06/23/20 10:00 06/24/20 10:46 Pantoprazole 40 Mg Inj IV 06/24/20 23:59 Not Given QDAY JAMIL Pantoprazole Sodium 40 mg 06/25/20 07:30 Pantoprazole 40 Mg Tab PO QDAC JAMIL Sodium Chloride 10 ml 06/23/20 10:00 06/24/20 13:45 Sodium Chloride 0.9% 10 Ml Flush Syringe IV Not Given BID JAMIL Sodium Chloride 10 ml 06/23/20 03:06 Sodium Chloride 0.9% 10 Ml Flush Syringe IV PRN PRN LINE FLUSH Ticagrelor 90 mg 06/24/20 22:00 Ticagrelor 90 Mg Tab PO BID JAMIL Nutrition/Malnutrition Assess - Dietary Evaluation Nutrition/Malnutrition Findings: Nutrition Notes Start: 06/23/20 08:51 Freq: Status: Active Protocol: Document 06/23/20 08:52 CW (Rec: 06/23/20 09:01 CW [id number]) Nutrition Notes 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 Recommend ONS QD. Pt states change in eating habits related to healthier habits and less eating out Percent of energy/protein needs met: 0%/0% Burn Absent Trauma Absent GI Symptoms Nausea Current % PO Negligible Minimum of two criteria No physical signs of malnutrition #1 Nutrition Diagnosis Inadequate oral intake Etiology low appetite As Evidenced by Signs and Symptoms Pt c/o of low appetite, 25% PO intake of lunch following NPO status. Is patient on ventilator? No Is Patient Ambulatory and/or Out of Bed Yes REE-([place]. Jeor-ambulatory/OOB) [ 1738.594 NUTR.[id number]] Kcal/Kg value to use for calculation 16 Approximate Energy Requirements Using 1232 kcal/Kg Calculation Used for Recommendations Kcal/kg Additional Notes protein needs: 50 - 62 g (0.8 - 1g/kg AdjBW 62.36) fluid needs 1 ml/kcal or per MD order Nutrition Intervention Change Diet Order: Continue Cardiac Diet Add Supplement/Snack (indicate name/kcal Ensure Clear Apple QD /protein ) Provides kCal: 240 Provides Protein (gm) 8 Goal #1 PO intake of at least 80% of kcal and protein Anticipated Discharge Needs: Cardiac diet Follow-Up By: 06/25/20 Additional Comments F/U ONS tolerance, PO intake
[2020-06-24] MEDS: TICAGRELOR 90 MG TAB PO SCH (22:37)
[2020-06-25 06:35] LABS: Basophils % (Auto) 0.7 % (0.0-1.8); Eosinophils # (Auto) 0.3 K/mm3 (0.0-0.4); Eosinophils % (Auto) 3.7 % (0.0-4.3); Hematocrit 41.6 % (30.3-42.9); Lymphocytes # (Auto) 1.5 K/mm3 (1.2-5.4); Lymphocytes % (Auto) 21.5 % (13.4-35.0); Mean Corpuscular HGB Conc 34 % (30-34); Mean Corpuscular Volume 87 fl (79-97); Monocytes # (Auto) 0.7 K/mm3 (0.0-0.8); Monocytes % (Auto) 9.6 % (0.0-7.3); Platelet Count 221 K/mm3 (140-440); Red Blood Count 4.78 M/mm3 (3.65-5.03); Red Cell Distribution Width 12.5 % (13.2-15.2)
[2020-06-25 06:59] LABS: Creatine Kinase MB 1.3 ng/mL (0.0-4.0)
[2020-06-25 07:03] LABS: Blood Urea Nitrogen 13 mg/dL (7-17); Calcium 9.2 mg/dL (8.4-10.2); Hemolysis Index 4
[2020-06-25 07:06] LABS: BUN/Creatinine Ratio 26
[2020-06-25] MEDS ORDERED: PANTOPRAZOLE 40 MG TAB PO SCH (07:30)
--- NOTE | 2020-06-25 08:18 | XRay Report ---
CHEST 1 VIEW INDICATION: post pci. COMPARISON: 06/23/2020 FINDINGS: Support devices: None. Heart: Within normal limits. Lungs/Pleura: No acute air space or interstitial disease. Additional findings: None. IMPRESSION: No acute findings. Signer Name: Yohan Salazar Jr, MD Signed: 06/25/2020 8:14 AM Workstation Name: [id number]
[2020-06-25] MEDS: METOPROLOL TARTRATE 25 MG TAB PO SCH (10:15)
[2020-06-25] MEDS: ONDANSETRON 4 MG/2 ML INJ IV PRN (10:15)
[2020-06-25] MEDS: ENOXAPARIN 40 MG/0.4 ML INJ SUB-Q SCH (10:15)
[2020-06-25] MEDS: TICAGRELOR 90 MG TAB PO SCH (10:16)
[2020-06-25] MEDS: LISINOPRIL 5 MG TAB PO SCH (10:16)
[2020-06-25] MEDS: ASPIRIN 81 MG TAB CHEW PO SCH (10:16)
--- NOTE | 2020-06-25 11:07 | Progress Note ---
Assessment and Plan S/p LHC via RRA with PCI to circ yesterday. Currently stable cardiac status. Pt may discharge from cardiology standpoint on present cardiac regimen, including ASA 81, brilinta, lipitor, lopressor, lisinopril. Follow up in our [place] office with Dr. Rosenberg on 07/08/2020 @ 2:00PM. The patient has been seen in conjunction with Dr Rosenberg who agrees with the assessment and plan of care. - Patient Problems (1) Chest pain Current Visit: Yes Status: Resolved (2) HTN (hypertension) Current Visit: Yes Status: Chronic (3) Coronary artery disease Current Visit: Yes Status: Chronic (4) Stented coronary artery Current Visit: Yes Status: Chronic (5) Anxiety Current Visit: Yes Status: Chronic (5) History of sarcoidosis Current Visit: No Status: Chronic Plan to address problem: Reported pulmonary sarcoidosis (6) History of asthma Current Visit: No Status: Chronic (7) LUKE (obstructive sleep apnea) Current Visit: Yes Status: Chronic Plan to address problem: Pt is noncompliant with CPAP Subjective Date of service: 06/25/20 Principal diagnosis: cp Interval history: pt resting in bed, c/o some nausea this AM. No chest pain or SOB. tele reviewed - in SR HR 70s. Objective Last Vital Signs Temp 97.6 F 06/25/20 07:56 Pulse 70 06/25/20 08:00 Resp 16 06/25/20 07:56 BP 140/89 06/25/20 07:56 Pulse Ox 99 06/25/20 07:56 - Physical Examination General: No Apparent Distress HEENT: Positive: PERRL Neck: Positive: neck supple, trachea midline Cardiac: Positive: Reg Rate and Rhythm, S1/S2 Lungs: Positive: Decreased Breath Sounds Neuro: Positive: Grossly Intact Abdomen: Positive: Unremarkable Skin: Negative: Rash, Wound Incision: Cardiac Cath Site (RRA LHC site c/d/i, no bleeding or hematoma ) Musculoskeletal: No Pain Extremities: Present: upper extr. pulses, lower extr. pulses - Labs and Meds Cardiac Enzymes 06/25/20 Range/Units 05:19 CK-MB (CK-2) 1.3 (0.0-4.0) ng/mL CBC 06/25/20 Range/Units 05:19 WBC 7.0 (4.5-11.0) K/mm3 RBC 4.78 (3.65-5.03) M/mm3 Hgb 14.0 (10.1-14.3) gm/dl Hct 41.6 (30.3-42.9) % Plt Count 221 (140-440) K/mm3 Lymph # (Auto) 1.5 (1.2-5.4) K/mm3 [place] # (Auto) 0.7 (0.0-0.8) K/mm3 Eos # (Auto) 0.3 (0.0-0.4) K/mm3 Baso # (Auto) 0.0 (0.0-0.1) K/mm3 Comprehensive Metabolic Panel 06/25/20 Range/Units 05:19 Sodium 140 (137-145) mmol/L Potassium 3.8 (3.6-5.0) mmol/L Chloride 103.5 (98-107) mmol/L Carbon Dioxide 23 (22-30) mmol/L BUN 13 (7-17) mg/dL Creatinine 0.5 L (0.6-1.2) mg/dL Glucose 81 (65-100) mg/dL Calcium 9.2 (8.4-10.2) mg/dL - Imaging and Cardiology EKG: report reviewed, image reviewed Echo: report reviewed - Telemetry EKG Rhythm: Sinus Rhythm - EKG Sinus rhythms and dysrhythmias: sinus rhythm
[2020-06-25 12:25] VITALS: BP 120/66
--- NOTE | 2020-06-25 14:01 | Discharge Summary ---
Providers - Providers Date of Admission: 06/23/20 03:06 Date of discharge: 06/25/20 Attending physician: BON OVALLES 06/23/20 03:06 Consult to Physician [CONS] Routine Comment: Consulting Provider: YAMILETH WINSTON Physician Instructions: Reason For Exam: est pt , c/o CP; 06/24/20 Consult to Cardiac Rehabilitation [CONS] Routine Reason For Exam: post pci Primary care physician: [employer]ER Hospitalization Condition: Fair Hospital course: --Persistent chest pain; 06/23/2020 stress test negative for ischemia and normal EF Due to persistent chest pain patient underwent left heart catheterization today 06/24/2020 ;[facility] :s/p PCI to circumflex, continue current cardiac medications Patient feels slightly better, overnight observation per cardiology DC a.m. if stable --Acute atypical chest Pain; present on admission Normal stress test, normal EF Status post cath PCI to circumflex Started on dual antiplatelet therapy, beta-blockers SULAIMAN inhibitors Nitrates and statins --General anxiety; Patient is little fidgety and anxious, low-dose Xanax as needed If no improvement, may refer her to psych/psychologist for further evaluation and management as outpatient --GERD; Protonix --History of bronchial asthma; not on home oxygen Oxygen titrate O2 sats to more than 90%, albuterol inhaler as needed --Hypertension; moderate control Continue current antihypertensives and as needed medications --Obesity; BMI 32.1 Advised dietary modification exercise as tolerated and weight reduction when medically stable Advance Directives: No VTE prophylaxis?: Chemical Plan of care discussed with patient/family: Yes We will closely monitor the patient and adjust management as needed Disposition: DC- TO HOME OR SELFCARE Time spent for discharge: 35 mi Core Measure Documentation - Palliative Care Palliative Care/ Comfort Measures: Not Applicable - Core Measures Any of the following diagnoses?: none Exam - Constitutional Vitals: Temp Pulse Resp BP Pulse Ox 98.6 F 89 18 120/66 96 06/25/20 12:23 06/25/20 12:23 06/25/20 12:23 06/25/20 12:23 06/25/20 12:23 General appearance: Present: no acute distress, well-nourished, obese - EENT Eyes: Present: PERRL, EOM intact - Neck Neck: Present: supple, normal ROM - Respiratory Respiratory effort: normal Respiratory: bilateral: diminished, negative: rales, rhonchi, wheezing - Cardiovascular Rhythm: regular Heart Sounds: Present: S1 & S2 - Extremities Extremities: no ischemia, No edema - Abdominal General gastrointestinal: Present: soft, non-tender, non-distended, normal bowel sounds - Integumentary Integumentary: Present: clear, warm - Musculoskeletal Musculoskeletal: strength equal bilaterally - Psychiatric Psychiatric: appropriate mood/affect, cooperative - Neurologic Neurologic: CNII-XII intact, moves all extremities Plan Activity: advance as tolerated Diet: other (Cardiac diet) Additional Instructions: Advised not to lift heavy weights until you see the territory sales manager on 07/08/2020. Work excuse for 3 days to 06/26/2020 -06/28/2020, may return to work on 06/29/2020 if you have stable. If you have worsening symptoms contact MD or go to emergency room. Follow up [facility] cardiology [place] office with Dr. Glynn on 07/08/2020 @ 2:00PM. Follow up with: PRIMARY MD MARCELLUS [Primary Care Provider] - 3-5 Days GEOVANNA GLYNN MD [Staff Physician] - 07/08/20 2:00 pm Forms: Work/School Release Form Prescriptions: Ticagrelor [Brilinta] 90 mg PO BID #60 tablet Aspirin EC [Halfprin EC] 81 mg PO QDAY #30 tablet. AtorvaSTATin [Lipitor] 40 mg PO QHS #30 tablet Metoprolol [Lopressor TAB] 25 mg PO BID #60 tablet lisinopriL [Zestril TAB] 5 mg PO QDAY #30 tablet Ondansetron [Zofran Odt] 4 mg PO Q8HR #15 tab.diogenes
--- NOTE | 2020-06-26 12:15 | Treadmill Report ---
The patient is a 49-year-old female with history of pulmonary sarcoidosis, asthma and hypertension, presented with chest pain and left calf pain. The patient's chest pain is intermittent and persistent. Troponins were found to be negative. EKG showed sinus rhythm with nonspecific minor ST changes. The patient underwent pharmacological stress testing for evaluation of atypical chest pains. The patient was brought to the catheterization laboratory in a fasting condition. Resting myocardial perfusion images were performed followed by vasodilation with IV regadenoson 0.4 mg. The patient tolerated the procedure well. Continued to have some chest pain. EKG did not show any significant changes from the baseline. The patient had resting myocardial perfusion imaging at rest with technetium 99m sestamibi radio tracer. Subsequently, post-vasodilation the patient had myocardial perfusion using the same agent also with gating being performed. Following findings were noted. Myocardial perfusion images were showing normal perfusion post-vasodilation and also during rest. Transient ischemic dilation ratio was found to be 1.00. Gated study showed a calculated ejection fraction of 76% with end-diastolic volume of 76 mL and end-systolic volume of 18 mL. FINAL IMPRESSION: 1. The patient tolerated the IV regadenoson well. 2. No significant EKG changes to suggest ischemia. 3. Continue to have atypical chest pains during the procedure. 4. Myocardial perfusion imaging was found to be normal with no evidence of ischemia and normal left ventricular systolic function. Prognostically, this appears to be low risk study. JOB# [id number] VERONICA/ISABEL
--- NOTE | 2020-06-26 12:33 | Cardiac Catherization Report ---
INDICATION FOR PROCEDURE: The patient is a 49-year-old white female with history of asthma, pulmonary sarcoidosis and atypical chest pains, was noted to have negative stress nuclear imaging. However, the patient continues to have significant chest pain. Hence, underwent cardiac catheterization for definitive diagnosis and treatment. The patient is aware of the procedure, potential complications and alternatives of therapy available. DESCRIPTION OF PROCEDURE: The patient was brought to the catheterization laboratory in a fasting condition. The patient was evaluated for moderate sedation and was felt to be appropriate candidate for moderate sedation and received IV Versed and fentanyl. Subsequently, the patient was prepared in standard fashion. Sterile drapes were applied. Local anesthesia was given in the right wrist area and right radial artery access was obtained using 21-gauge arterial puncture needle. A 5-Welsh slender sheath was introduced. Received 5 mg of intra-arterial verapamil and 3000 units of intravenous heparin. Using a 5-Welsh multipurpose catheter, angiograms of the left ventricle was performed in HERNANDEZ projection using hand injection followed by angiograms of the left coronary artery and right coronary artery in multiple views. At the end of the procedure, it was felt that the patient has severe stenosis in the distal circumflex artery supplying PDA. Considering symptomatology at rest, it was decided to proceed with intervention of this vessel. Following findings were noted. HEMODYNAMICS: 1. Opening aortic pressure 138/89. Left ventricular pressure 136/26. No gradient across the aortic valve. Estimated ejection fraction 55%. 2. Left ventriculogram done in HERNANDEZ projection showed normal sized left ventricle with normal contractility. End-diastolic and systolic volumes are normal. Mitral regurgitation could not be evaluated because of limited amount of dye injected. 3. Right coronary artery is nondominant vessel arising normally. 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 May be supplying to the left system. 4. Left coronary artery arises normally from left coronary cusp. Left main without significant disease. LAD showed mildly calcific 50% smooth lesion in the mid part, which is segmental. Mid and distal LAD, small caliber vessel, probably 2 mm or so. Circumflex artery dominant vessel showed 50% smooth lesion in the proximal OM1 part. This is medium-sized vessel. Distal RCA showed segmental lesion, severe 80-90% extending into the proximal part of the PDA. 5. Collaterals, none. FINAL IMPRESSION: 1. Normal sized left ventricle with normal contractility. Ejection fraction 55%. Elevated end diastolic pressure noted. 2. Nondominant right coronary artery without significant disease noted; however, also a small anomalously arising branch, which may be supplying LCA was realized arising from the proximal part of the RCA and this is not selectively engaged. 3. Left coronary artery as mentioned above showed borderline 50% smooth mid LAD disease; however, LAD is small caliber vessel. Similarly 50% smooth lesion noted in the obtuse marginal branch. However, this appears to have significant segmental lesion in the distal RCA, extending into the PDA, which is 80-90% in severity and this is medium sized vessel. Considering the severity, it was felt that the patient would benefit from intervention of this lesion. Coronary intervention of the distal RCA extending into the PDA: Patient has indwelling 5-Welsh slender sheath in the right radial artery. The patient was given heparin as anticoagulant. EBU 3.5 guiding catheter was advanced and engaged the left coronary artery. A 0.014 inch [place] XT guidewire was advanced into the distal circumflex artery into the PDA. Initially, 2.5 x 18 mm Resolute stent was placed in the lesion extending proximal and into the distal part of the lesion. Was dilated up to 16 atmospheres. However, still appears to be not well expanded. Hence, a 2.5 x 15 mm NC Euphora balloon was used to post-dilate the stent up to 20-24 atmospheres with good result. FER 3 flow was noted pre and post-procedure. No proximal or distal dissection noted. No embolization or perforation noted. The patient tolerated the procedure well without any chest pain. The patient had transient EKG changes during inflation. Otherwise, hemodynamically stable without any arrhythmia. Post-procedure ACT was found to be therapeutic and received Brilinta 180 mg in the catheterization laboratory and this will be continued in addition to baby aspirin 81 mg a day. The patient tolerated the procedure well. The patient was monitored throughout the procedure with hemodynamic monitoring, pulse oximetry, and EKG monitoring. At the end of the procedure, the patient is communicating normally, breathing normally and also no focal deficits noted. The patient's moderate sedation started at 8:08 a.m. and ended at 8:51 a.m. The patient was transferred to the room in stable condition. Hemostasis being achieved with application of radial band. The patient will be monitored in telemetry for next 12 hours. FINAL IMPRESSION: Uncomplicated drug-eluting stent placement of the distal circumflex artery into the PDA. FER 3 flow was noted pre and post-procedure. The patient will be continued on baby aspirin in addition to Brilinta. The patient does have residual disease, which appeared to be borderline in the mid LAD and mid obtuse marginal branch. 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 The patient will be continued on aggressive risk factor modification and medical therapy. JOB# [id number] VERONICA/ISABEL RIVER
== END 2020-06-25 17:00 | disposition home or self-care (01) ==
LOC: ED 23:54 → 4A 06-23 03:06
PROVIDERS: ADMIT Internal Medicine Geriatric Medicine; ATTEND Internal Medicine
DX: R07.89 Other chest pain (principal); K21.9 Gastro-esophageal reflux disease without esophagitis; I10 Essential (primary) hypertension; F41.9 Anxiety disorder, unspecified; J45.909 Unspecified asthma, uncomplicated; M19.90 Unspecified osteoarthritis, unspecified site; D86.9 Sarcoidosis, unspecified; E66.9 Obesity, unspecified; G47.33 Obstructive sleep apnea (adult) (pediatric); Z90.710 Acquired absence of both cervix and uterus; Z87.09 Personal history of other diseases of the respiratory system; Z86.2 Personal history of diseases of the blood and blood-forming organs and certain disorders involving the immune mechanism; Z90.49 Acquired absence of other specified parts of digestive tract; Z79.82 Long term (current) use of aspirin; Z68.32 Body mass index [BMI] 32.0-32.9, adult; Z95.1 Presence of aortocoronary bypass graft
CPT/HCPCS: 36415; 71045; 78452; 80048; 80061; 82550; 82553; 84484; 85025; 85610; 93005; 93017; 93306; 93458; 96372; 96374; 96375; 96376; 99285; A9270; A9502; C1725; C1769; C1874; C1887; C1894; C9113; C9600; G0378; J1644; J1650; J2250; J2270; J2405; J3010; 92928; J7040; Q9967

== ENCOUNTER 2020-07-02 22:52 | Observation (INO) | payer OTHER ==
--- NOTE | 2020-07-02 23:00 | Event Note ---
ED Screening Note Date of service: 07/02/20 Time: 22:59 ED Screening Note: tp is a 49 y/o wf with hx cad, s/p hear cath 2 weeks ago wtih stent placement , on asa daily , compleins of 8/10 chest pain x 1 day, pain is exacerbated by activity, pain is relieved by nothing. This initial assessment/diagnostic orders/clinical plan/treatment(s) is/are subject to change based on patients health status, clinical progression and re- assessment by fellow clinical providers in the ED. Further treatment and workup at subsequent clinical providers discretion. Patient/guardian urged not to elope from the ED as their condition may be serious if not clinically assessed and managed. Initial orders include: ekg, cxr, cmp, cbc, pt, ptt, IV, trop x 2,
--- NOTE | 2020-07-02 23:50 | XRay Report ---
CHEST 2 VIEWS INDICATION / CLINICAL INFORMATION: chest pain. COMPARISON: Chest x-ray 06/25/2020 FINDINGS: SUPPORT DEVICES: None. HEART / MEDIASTINUM: No significant abnormality. LUNGS / PLEURA: No significant pulmonary or pleural abnormality. No pneumothorax. ADDITIONAL FINDINGS: No significant additional findings. IMPRESSION: 1. No acute findings. Signer Name: Chon Estrada MD Signed: 07/02/2020 11:45 PM Workstation Name: [id number]
--- NOTE | 2020-07-03 00:01 | Emergency Department Report ---
ED Chest Pain HPI - General Chief Complaint: Chest Pain Stated Complaint: NOSE BLEED/NAUSEA/CHEST TIGHTNESS PUI?: No Time Seen by Provider: 07/02/20 23:59 Source: patient Mode of arrival: Ambulatory Limitations: No Limitations - History of Present Illness Initial Comments: Patient is a 49-year-old female that presents emergency room with complaints of chest pain, nausea and nosebleed. Patient states her chest pain started at 9 PM. Patient dates her chest pain is worsening. Patient states that her chest pain is worse with exertion and better with rest. Patient states that her nosebleed has resolved prior to coming here. Patient states she had a cardiac catheter 1 week ago was found to have a 8090% circumflex blockage and had a stent placed. Patient states she is compliant with her aspirin and Brilinta. Patient states she is also having nausea without vomiting. Patient states the chest pain is in her substernal middle chest. Patient states the chest pain is nonradiating. Patient states it feels like a pressure. Patient denies recent travel. Patient denies recent international travel. Patient denies exposure to the novel coronavirus. Patient denies sick contacts. Patient denies fever and chills. Patient denies cough. Patient denies diarrhea. Patient denies coming in contact with anybody with symptoms of the novel coronavirus. MD Complaint: chest pain -: Sudden, hour(s) Onset: during rest Pain Location: substernal Pain Radiation: none Severity scale (0 -10): 3 Quality: heaviness, pressure Consistency: constant Improves With: rest Worsens With: exertion Context: recent surgery re: nausea, sense of impending doom. denies: vomting, diaphoresis, dyspnea Other Symptoms: denies: cough, fever, syncope, rash, acid taste in mouth, leg swelling, palpitations, burping Treatments Prior to Arrival: aspirin Aspirin use within the Past 7 Days: (1) Yes - Related Data On Oral Contraceptives: No Previous Rx's Medication Instructions Recorded Last Taken Type Albuterol Sulfate [Proventil Hfa] 6.7 gm IH Q6HR PRN #1 hfa.aer.ad 10/20/17 Unknown Rx HYDROcodone/ACETAMINOPHEN [[place] 1 each PO Q6HR PRN #14 tablet 10/20/17 Unknown Rx 5-325 Tablet] Mometasone Furoate [Asmanex Hfa] 13 gm IH BID #1 hfa.aer.ad 10/20/17 Unknown Rx Famotidine [Pepcid] 20 mg PO Q12H #60 tablet 03/17/19 Unknown Rx Ondansetron [Zofran Odt] 4 mg PO Q6HR PRN #12 tab.rapdis 03/17/19 Unknown Rx Aspirin EC [Halfprin EC] 81 mg PO QDAY #30 tablet. 06/25/20 Unknown Rx AtorvaSTATin [Lipitor] 40 mg PO QHS #30 tablet 06/25/20 Unknown Rx Metoprolol [Lopressor TAB] 25 mg PO BID #60 tablet 06/25/20 Unknown Rx Ondansetron [Zofran Odt] 4 mg PO Q8HR #15 tab.rapdis 06/25/20 Unknown Rx Ticagrelor [Brilinta] 90 mg PO BID #60 tablet 06/25/20 Unknown Rx lisinopriL [Zestril TAB] 5 mg PO QDAY #30 tablet 06/25/20 Unknown Rx Allergies Allergy/AdvReac Type Severity Reaction Status Date / Time prochlorperazine Allergy Itching Verified 10/19/17 01:48 [From Compazine] sulfamethoxazole Allergy Itching Verified 10/19/17 01:48 [From Bactrim] trimethoprim [From Bactrim] Allergy Itching Verified 10/19/17 01:48 Heart Score - HEART Score History: Moderately suspicious EKG: Non-specific Age: 45-65 Risk factors: > 3 risk factors or hx of atherosclerotic disease Troponin: < normal limit HEART Score: 5 ED Review of Systems ROS: Stated complaint: NOSE BLEED/NAUSEA/CHEST TIGHTNESS Other details as noted in HPI Constitutional: denies: chills, fever Eyes: denies: eye pain, eye discharge, vision change ENT: denies: ear pain, throat pain Respiratory: denies: cough, shortness of breath, wheezing Cardiovascular: chest pain. denies: palpitations Endocrine: no symptoms reported Gastrointestinal: nausea. denies: abdominal pain, vomiting, diarrhea Genitourinary: denies: urgency, dysuria, discharge Musculoskeletal: denies: back pain, joint swelling, arthralgia Skin: denies: rash, lesions Neurological: denies: headache, weakness, paresthesias Psychiatric: denies: anxiety, depression Hematological/Lymphatic: denies: easy bleeding, easy bruising ED Past Medical Hx - Past Medical History Previous Medical History?: Yes Hx Congestive Heart Failure: No Hx Diabetes: No Hx Arthritis: Yes Hx Asthma: Yes Hx COPD: No Additional medical history: CAD. sarcodosis - Surgical History Past Surgical History?: Yes Hx Coronary Stent: Yes Hx Cholecystectomy: Yes Hx Appendectomy: Yes Additional Surgical History: hysterectomy - Family History Family history: no significant - Social History Smoking Status: Never Smoker Substance Use Type: None - Medications Home Medications: Home Medications Medication Instructions Recorded Confirmed Last Taken Type Albuterol Sulfate [Proventil Hfa] 6.7 gm IH Q6HR PRN #1 hfa.aer.ad 10/20/17 06/23/20 Unknown Rx HYDROcodone/ACETAMINOPHEN [[place] 1 each PO Q6HR PRN #14 tablet 10/20/17 06/23/20 Unknown Rx 5-325 Tablet] Mometasone Furoate [Asmanex Hfa] 13 gm IH BID #1 hfa.aer.ad 10/20/17 06/23/20 Unknown Rx Famotidine [Pepcid] 20 mg PO Q12H #60 tablet 03/17/19 06/23/20 Unknown Rx Ondansetron [Zofran Odt] 4 mg PO Q6HR PRN #12 tab.rapdis 03/17/19 06/23/20 Unknown Rx Aspirin EC [Halfprin EC] 81 mg PO QDAY #30 tablet.dr 06/25/20 Unknown Rx AtorvaSTATin [Lipitor] 40 mg PO QHS #30 tablet 06/25/20 Unknown Rx Metoprolol [Lopressor TAB] 25 mg PO BID #60 tablet 06/25/20 Unknown Rx Ondansetron [Zofran Odt] 4 mg PO Q8HR #15 tab.rapdis 06/25/20 Unknown Rx Ticagrelor [Brilinta] 90 mg PO BID #60 tablet 06/25/20 Unknown Rx lisinopriL [Zestril TAB] 5 mg PO QDAY #30 tablet 06/25/20 Unknown Rx ED Physical Exam - General Limitations: No Limitations General appearance: alert, in no apparent distress - Head Head exam: Present: atraumatic, normocephalic - Eye Eye exam: Present: normal appearance - ENT ENT exam: Present: mucous membranes moist - Neck Neck exam: Present: normal inspection - Respiratory Respiratory exam: Present: normal lung sounds bilaterally. Absent: respiratory distress, wheezes, rales, chest wall tenderness - Cardiovascular Cardiovascular Exam: Present: regular rate, normal rhythm. Absent: systolic murmur, diastolic murmur, rubs, gallop - GI/Abdominal GI/Abdominal exam: Present: soft, normal bowel sounds - Extremities Exam Extremities exam: Present: normal inspection - Back Exam Back exam: Present: normal inspection - Neurological Exam Neurological exam: Present: alert, oriented X3 - Psychiatric Psychiatric exam: Present: normal affect, normal mood - Skin Skin exam: Present: warm, dry, intact, normal color. Absent: rash ED Course Vital Signs 07/03/20 00:15 Pulse Rate 95 H Respiratory 12 Rate Blood Pressure 141/94 [Left] O2 Sat by Pulse 100 Oximetry - Reevaluation(s) Reevaluation #1: I discussed all results with patient. I discussed plan of care with patient. Patient agrees with plan of care and admission. Patient to be admitted to the hospitalist service. 07/03/20 00:30 - Consultations Consultation #1: Hospitalist consulted for admission. Hospitalist to admit patient. 07/03/20 00:31 FER score - Fer Score Age > 65: (0) No Aspirin use within the Past 7 Days: (0) No 3 or more CAD Risk Factors: (0) No 2 or more Angina events in past 24 hrs: (1) Yes Known CAD with more than 50% Stenosis: (0) No Elevated Cardiac Markers: (0) No ST Deviation Greater than 0.5mm: (0) No FER Score: 1 ED Medical Decision Making - Lab Data Result diagrams: 07/02/20 23:06 07/02/20 23:06 - EKG Data -: EKG Interpreted by Me EKG shows normal: sinus rhythm, axis, intervals, QRS complexes, ST-T waves Rate: tachycardia - Radiology Data Radiology results: report reviewed, image reviewed interpreted by me: Chest x-ray: No pneumonia, no pneumothorax, no foreign body, no osseous findings, no acute findings - Medical Decision Making Patient is a 49-year-old female that presents emergency room with chest pressure and chest pain. Patient also complained of a nosebleed which resolved prior to initial evaluation and nausea without vomiting. Patient has a history of CAD. Patient had a recent cardiac stent placed. Patient heart score is elevated. Patient's FER score is elevated. Patient had a cardiac work-up to include labs, EKG and chest x-ray. Patient labs are essentially unremarkable and troponin is negative. Patient's EKG which was reviewed by me is negative for acute findings and ST changes. Patient chest x-ray is negative for acute findings and was reviewed by me. Patient admitted to the hospital service for further evaluation and treatment and rule out ACS. - Differential Diagnosis ACS, chest pain, CAD, nausea, chest pressure Critical Care Time: Yes Critical care time in (mins) excluding proc time.: 35 Critical care attestation.: If time is entered above; I have spent that time in minutes in the direct care of this critically ill patient, excluding procedure time. Critical Care Time: 35 minutes ED Disposition Clinical Impression: Nausea alone Chest pain Qualifiers: Chest pain type: unspecified Qualified Code(s): R07.9 - Chest pain, unspecified CAD (coronary artery disease) Qualifiers: Coronary Disease-Associated Artery/Lesion type: unspecified vessel or lesion type [place] vs. transplanted heart: [place] heart Associated angina: angina presence unspecified Qualified Code(s): I25.10 - Atherosclerotic heart disease of [place] coronary artery without angina pectoris Disposition: OP ADMIT IP TO THIS HOSP Is pt being admited?: Yes Does the pt Need Aspirin: No Condition: Critical Instructions: Chest Pain (ED) Time of Disposition: 00:33
[2020-07-03 00:06] LABS: INR 0.91 (0.87-1.13)
[2020-07-03 00:15] LABS: Alanine Aminotransferase 19 units/L (7-56); Albumin 4.4 g/dL (3.9-5); Blood Urea Nitrogen 16 mg/dL (7-17); Calcium 9.4 mg/dL (8.4-10.2); Hemolysis Index 8
[2020-07-03 00:20] LABS: Basophils # (Auto) 0.1 K/mm3 (0.0-0.1); Basophils % (Auto) 0.8 % (0.0-1.8); Eosinophils # (Auto) 0.2 K/mm3 (0.0-0.4); Eosinophils % (Auto) 2.6 % (0.0-4.3); Hematocrit 43.9 % (30.3-42.9); Hemoglobin 14.8 gm/dl (10.1-14.3); Lymphocytes # (Auto) 1.5 K/mm3 (1.2-5.4); Lymphocytes % (Auto) 19.4 % (13.4-35.0); Mean Corpuscular HGB Conc 34 % (30-34); Mean Corpuscular Volume 87 fl (79-97); Monocytes # (Auto) 0.6 K/mm3 (0.0-0.8); Monocytes % (Auto) 8.2 % (0.0-7.3); Platelet Count 288 K/mm3 (140-440); Red Blood Count 5.06 M/mm3 (3.65-5.03); Red Cell Distribution Width 12.5 % (13.2-15.2)
[2020-07-03 00:25] LABS: BUN/Creatinine Ratio 32
[2020-07-03] MEDS ORDERED: ACETAMINOPHEN 325 MG TAB PO PRN ×2 (01:28)
[2020-07-03] MEDS ORDERED: NITROGLYCERIN 0.4 MG TAB SUBL SL PRN (01:28)
[2020-07-03] MEDS ORDERED: MAGNESIUM HYDROXIDE (MOM) ORAL LIQD UDC PO PRN (01:28)
--- NOTE | 2020-07-03 01:39 | History and Physical Report ---
History of Present Illness Date of examination: 07/03/20 Date of admission: 07/03/20 00:33 Chief complaint: Chest Pain History of present illness: Patient is a 49-year-old female with known history of asthma, sarcoidosis, arthritis and coronary artery disease status post cardiac stent placement about a week ago presenting to the emergency room today complaining of for chest pain. Chest pain was said to have started earlier this evening and tends to be worsening. Pain is worse on exertion and improves upon resting. She has been compliant with aspirin and Brilinta. Chest pain is said to felt like pressure in the substernal area. Patient has had associated nausea but no vomiting, no abdominal pain, no fever or chills, she has had some headache but no dizziness. She had some nosebleed prior to reporting to the emergency room which has since resolved. Patient denies any sick contacts and no recent travel, denies any contact with anyone with COVID-19. Work-up in the emergency room today so far has been unremarkable. Patient is being admitted for chest pain evaluation. Past History Past Medical History: arthritis, CAD, other (Asthma,Sarcoidosis) Past Surgical History: appendectomy, hysterectomy, PTCA Social history: no significant social history Family history: no significant family history Medications and Allergies Allergies Allergy/AdvReac Type Severity Reaction Status Date / Time prochlorperazine Allergy Itching Verified 10/19/17 01:48 [From Compazine] sulfamethoxazole Allergy Itching Verified 10/19/17 01:48 [From Bactrim] trimethoprim [From Bactrim] Allergy Itching Verified 10/19/17 01:48 Home Medications Medication Instructions Recorded Confirmed Last Taken Type Albuterol Sulfate [Proventil Hfa] 6.7 gm IH Q6HR PRN #1 hfa.aer.ad 10/20/17 07/03/20 Unknown Rx Mometasone Furoate [Asmanex Hfa] 13 gm IH BID #1 hfa.aer.ad 10/20/17 07/03/20 07/02/20 Rx Famotidine [Pepcid] 20 mg PO Q12H #60 tablet 03/17/19 07/03/20 07/02/20 Rx Ondansetron [Zofran Odt] 4 mg PO Q6HR PRN #12 tab.rapdis 03/17/19 07/03/20 Unknown Rx Aspirin EC [Halfprin EC] 81 mg PO QDAY #30 tablet. 06/25/20 07/03/20 07/02/20 Rx AtorvaSTATin [Lipitor] 40 mg PO QHS #30 tablet 06/25/20 07/03/20 07/02/20 Rx Metoprolol [Lopressor TAB] 25 mg PO BID #60 tablet 06/25/20 07/03/20 07/02/20 Rx Ondansetron [Zofran Odt] 4 mg PO Q8HR #15 tab.rapdis 06/25/20 07/03/20 Unknown Rx Ticagrelor [Brilinta] 90 mg PO BID #60 tablet 06/25/20 07/03/20 07/02/20 Rx lisinopriL [Zestril TAB] 5 mg PO QDAY #30 tablet 06/25/20 07/03/20 07/02/20 Rx Active Meds: Active Medications Acetaminophen (Acetaminophen 325 Mg Tab) 650 mg PO Q4H PRN PRN Reason: Pain MILD(1-3)/Fever >100.5/AMADOR Acetaminophen (Acetaminophen 325 Mg Tab) 650 mg PO Q6H PRN PRN Reason: Pain, Mild (1-3) Aspirin (Aspirin Ec 325 Mg Tab) 325 mg PO QDAY [facility]AM[facility] Enoxaparin Sodium (Enoxaparin 40 Mg/0.4 Ml Inj) 40 mg SUB-Q QDAY@2200 JAMIL; Protocol Magnesium Hydroxide (Magnesium Hydroxide (Mom) Oral Liqd Udc) 30 ml PO Q4H PRN PRN Reason: Constipation Morphine Sulfate (Morphine 4 Mg/1 Ml Inj) 2 mg IV Q5MIN PRN PRN Reason: Chest Pain Nitroglycerin (Nitroglycerin 0.4 Mg Tab Subl) 0.4 mg SL Q5M PRN PRN Reason: Chest Pain Ondansetron HCl (Ondansetron 4 Mg/2 Ml Inj) 4 mg IV Q8H PRN PRN Reason: Nausea And Vomiting Sodium Chloride (Sodium Chloride 0.9% 10 Ml Flush Syringe) 10 ml IV BID JAMIL Sodium Chloride (Sodium Chloride 0.9% 10 Ml Flush Syringe) 10 ml IV PRN PRN PRN Reason: LINE FLUSH Sodium Chloride (Sodium Chloride 0.9% 10 Ml Flush Syringe) 10 ml IV PRN PRN PRN Reason: LINE FLUSH Review of Systems Constitutional: no fever, no chills Ears, nose, mouth and throat: no nasal congestion, no sore throat Cardiovascular: chest pain, no palpitations Respiratory: no cough, no shortness of breath Gastrointestinal: no abdominal pain, no nausea, no vomiting, no diarrhea Genitourinary Female: no flank pain, no dysuria, no hematuria Musculoskeletal: no neck pain, no low back pain Integumentary: no rash, no pruritis Neurological: no headaches, no confusion Psychiatric: no anxiety, no depression Exam - Constitutional Vitals: Temp Pulse Resp BP Pulse Ox 98.1 F 95 H 12 141/94 100 07/02/20 22:56 07/03/20 00:15 07/03/20 00:15 07/03/20 00:15 07/03/20 00:15 General appearance: Present: no acute distress, well-nourished - EENT Eyes: Present: PERRL, EOM intact. Absent: scleral icterus ENT: hearing intact, clear oral mucosa, dentition normal - Neck Neck: Present: supple, normal ROM - Respiratory Respiratory effort: normal Respiratory: bilateral: CTA - Cardiovascular Rhythm: regular Heart Sounds: Present: S1 & S2. Absent: gallop, systolic murmur, diastolic murmur, rub, click - Extremities Extremities: no ischemia, pulses intact, pulses symmetrical, No edema, normal temperature, normal color, Full ROM Peripheral Pulses: within normal limits - Abdominal General gastrointestinal: Present: soft, non-tender, non-distended, normal bowel sounds. Absent: mass - Integumentary Integumentary: Present: clear, warm, dry. Absent: rash - Musculoskeletal Musculoskeletal: strength equal bilaterally - Psychiatric Psychiatric: appropriate mood/affect, intact judgment & insight, memory intact, cooperative - Neurologic Neurologic: CNII-XII intact, no focal deficits, moves all extremities HEART Score - HEART Score History: Moderately suspicious EKG: Non-specific Age: 45-65 Risk factors: > 3 risk factors or hx of atherosclerotic disease Troponin: Troponin T < 0.010 ng/mL (0.00-0.029) 07/02/20 23:06 Troponin: < normal limit HEART Score: 5 Results - Labs CBC & Chem 7: 07/02/20 23:06 07/02/20 23:06 Labs: Abnormal lab results 07/02/20 07/02/20 07/02/20 Range/Units 23:06 23:06 23:06 RBC 5.06 H (3.65-5.03) M/mm3 Hgb 14.8 H (10.1-14.3) gm/dl Hct 43.9 H (30.3-42.9) % RDW 12.5 L (13.2-15.2) % [place] % (Auto) 8.2 H (0.0-7.3) % PT 12.1 L (12.2-14.9) Sec. Creatinine 0.5 L (0.6-1.2) mg/dL Glucose 145 H (65-100) mg/dL Assessment and Plan - Patient Problems (1) Chest pain Current Visit: Yes Status: Acute Qualifiers: Chest pain type: unspecified Qualified Code(s): R07.9 - Chest pain, unspecified Plan to address problem: Patient admitted and placed on telemetry. Will monitor serial cardiac enzymes. Consult placed to cardiology for evaluation. Patient was supposed to be following up with Dr. Rosenberg after being discharged from the hospital recently. (2) CAD (coronary artery disease) Current Visit: Yes Status: Acute Qualifiers: Coronary Disease-Associated Artery/Lesion type: unspecified vessel or lesion type [place] vs. transplanted heart: [place] heart Associated angina: angina presence unspecified Qualified Code(s): I25.10 - Atherosclerotic heart disease of [place] coronary artery without angina pectoris Plan to address problem: Patient had a cardiac stent placement about a week ago. She had about 80 to 90% occlusion of the circumflex. We will continue patient's routine home medications and await cardiology evaluation. (3) Anxiety Current Visit: No Status: Chronic Plan to address problem: We will continue routine home medications. (4) HTN (hypertension) Current Visit: No Status: Chronic Plan to address problem: Patient will be continued on her routine antihypertensive and will monitor vital signs closely. (5) History of asthma Current Visit: No Status: Chronic Plan to address problem: Patient will be placed on routine inhalers as needed. (6) DVT prophylaxis Current Visit: Yes Status: Acute Plan to address problem: Patient placed on subcutaneous Lovenox. (7) Full code status Current Visit: Yes Status: Acute Plan to address problem: Patient is a full code.
[2020-07-03] MEDS: ONDANSETRON 4 MG/2 ML INJ IV PRN ×3 (02:47→22:18)
[2020-07-03] MEDS: MORPHINE 4 MG/1 ML INJ IV PRN ×3 (02:48→13:39)
[2020-07-03] MEDS ORDERED: ALBUTEROL 8.5 GM MDI INHALATION IH PRN (05:47)
[2020-07-03] MEDS ORDERED: ALBUTEROL 2.5 MG/3 ML NEBU IH PRN (05:56)
[2020-07-03 06:17] LABS: Basophils # (Auto) 0.1 K/mm3 (0.0-0.1); Basophils % (Auto) 0.8 % (0.0-1.8); Eosinophils # (Auto) 0.2 K/mm3 (0.0-0.4); Eosinophils % (Auto) 2.4 % (0.0-4.3); Hematocrit 41.6 % (30.3-42.9); Hemoglobin 13.9 gm/dl (10.1-14.3); Lymphocytes # (Auto) 1.9 K/mm3 (1.2-5.4); Lymphocytes % (Auto) 23.3 % (13.4-35.0); Mean Corpuscular HGB Conc 33 % (30-34); Mean Corpuscular Volume 86 fl (79-97); Monocytes # (Auto) 0.7 K/mm3 (0.0-0.8); Monocytes % (Auto) 8.8 % (0.0-7.3); Platelet Count 259 K/mm3 (140-440); Red Blood Count 4.83 M/mm3 (3.65-5.03); Red Cell Distribution Width 12.5 % (13.2-15.2)
[2020-07-03 06:37] LABS: Blood Urea Nitrogen 14 mg/dL (7-17); Calcium 8.8 mg/dL (8.4-10.2); Hemolysis Index 30
[2020-07-03 06:40] LABS: BUN/Creatinine Ratio 28
[2020-07-03 07:10] LABS: Platelet Estimate Consistent w Auto; Schistocytes Rare; Total Cells Counted 100
[2020-07-03] MEDS: METOPROLOL TARTRATE 25 MG TAB PO SCH ×2 (07:28→16:40)
[2020-07-03] MEDS: ASPIRIN EC 81 MG TAB PO SCH (09:46)
[2020-07-03] MEDS: LISINOPRIL 5 MG TAB PO SCH (09:46)
[2020-07-03] MEDS: FAMOTIDINE 20 MG TAB PO SCH ×2 (09:46→22:18)
[2020-07-03] MEDS: TICAGRELOR 90 MG TAB PO SCH ×2 (09:46→22:18)
--- NOTE | 2020-07-03 10:29 | Consultation ---
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 She established care with Dr. Rosenberg on a recent hospitalization here at [facility] (discharged 06/25/2020). She presented with c/o nosebleed, nausea and chest pain since yesterday evening around 9PM. Pt states that she was sleeping when she was awakened by a nose bleed. She states that the bleeding was copious and ran down her face. When she noted the bleeding, she became suddenly nauseous and began dry heaving. She then developed chest pain and decided to seek medical attention. Pt describes her chest pain as a constant left-sided pressure. The pain has somewhat improved overnight since admission, although pt reports she is still experiencing mild pain. Pt denies any SOB, palpitations, vomiting, diaphoresis, dizziness or syncope. Pt reports full compliance with her home medication regimen, including ASA and brilinta. Pt also c/o lower abdominal pain - she is scheduled for abdomen/pelvis CT scan today. ECG with NAF, Edy negative for AMI x 2 sets. Pt was discharged from [facility] on 06/25/2020 following eval/management of chest pain. She underwent treadmill MPI stress test which showed good exercise tolerance, nuclear imaging negative for ischemia, normal EF. However, pt c/o persistent chest pain and thus LHC was recommended. 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 tte done 06/23/2020 showed EF 50-55%, no significant abnormalities. Past History Past Medical History: arthritis, CAD, other (Asthma,Sarcoidosis) Past Surgical History: appendectomy, hysterectomy, PTCA Social history: no significant social history Family history: no significant family history Medications and Allergies Allergies Allergy/AdvReac Type Severity Reaction Status Date / Time prochlorperazine Allergy Itching Verified 10/19/17 01:48 [From Compazine] sulfamethoxazole Allergy Itching Verified 10/19/17 01:48 [From Bactrim] trimethoprim [From Bactrim] Allergy Itching Verified 10/19/17 01:48 Home Medications Medication Instructions Recorded Confirmed Last Taken Type Albuterol Sulfate [Proventil Hfa] 6.7 gm IH Q6HR PRN #1 hfa.aer.ad 10/20/17 07/03/20 Unknown Rx Mometasone Furoate [Asmanex Hfa] 13 gm IH BID #1 hfa.aer.ad 10/20/17 07/03/20 07/02/20 Rx Famotidine [Pepcid] 20 mg PO Q12H #60 tablet 03/17/19 07/03/20 07/02/20 Rx Ondansetron [Zofran Odt] 4 mg PO Q6HR PRN #12 tab.rapdis 03/17/19 07/03/20 Unknown Rx Aspirin EC [Halfprin EC] 81 mg PO QDAY #30 tablet. 06/25/20 07/03/20 07/02/20 Rx AtorvaSTATin [Lipitor] 40 mg PO QHS #30 tablet 06/25/20 07/03/20 07/02/20 Rx Metoprolol [Lopressor TAB] 25 mg PO BID #60 tablet 06/25/20 07/03/20 07/02/20 Rx Ondansetron [Zofran Odt] 4 mg PO Q8HR #15 tab.rapdis 06/25/20 07/03/20 Unknown Rx Ticagrelor [Brilinta] 90 mg PO BID #60 tablet 06/25/20 07/03/20 07/02/20 Rx lisinopriL [Zestril TAB] 5 mg PO QDAY #30 tablet 06/25/20 07/03/20 07/02/20 Rx Active Meds: Active Medications Acetaminophen (Acetaminophen 325 Mg Tab) 650 mg PO Q4H PRN PRN Reason: Pain MILD(1-3)/Fever >100.5/AMADOR Albuterol (Albuterol 2.5 Mg/3 Ml Nebu) 2.5 mg IH Q6HRT PRN PRN Reason: Shortness Of Breath Aspirin (Aspirin Ec 81 Mg Tab) 81 mg PO QDAY JAMIL Last Admin: 07/03/20 09:46 Dose: 81 mg Documented by: Atorvastatin Calcium (Atorvastatin 40 Mg Tab) 40 mg PO QHS [facility] Enoxaparin Sodium (Enoxaparin 40 Mg/0.4 Ml Inj) 40 mg SUB-Q QDAY@2200 [facility]; Protocol Famotidine (Famotidine 20 Mg Tab) 20 mg PO BID [facility] Last Admin: 07/03/20 09:46 Dose: 20 mg Documented by: Lisinopril (Lisinopril 5 Mg Tab) 5 mg PO QDAY [facility] Last Admin: 07/03/20 09:46 Dose: 5 mg Documented by: Magnesium Hydroxide (Magnesium Hydroxide (Mom) Oral Liqd Udc) 30 ml PO Q4H PRN PRN Reason: Constipation Metoprolol Tartrate (Metoprolol Tartrate 25 Mg Tab) 25 mg PO BID@0800,1700 [facility] Last Admin: 07/03/20 07:28 Dose: 25 mg Documented by: Morphine Sulfate (Morphine 4 Mg/1 Ml Inj) 2 mg IV Q5MIN PRN PRN Reason: Chest Pain Last Admin: 07/03/20 07:28 Dose: 2 mg Documented by: Nitroglycerin (Nitroglycerin 0.4 Mg Tab Subl) 0.4 mg SL Q5M PRN PRN Reason: Chest Pain Ondansetron HCl (Ondansetron 4 Mg/2 Ml Inj) 4 mg IV Q8H PRN PRN Reason: Nausea And Vomiting Last Admin: 07/03/20 02:47 Dose: 4 mg Documented by: Sodium Chloride (Sodium Chloride 0.9% 10 Ml Flush Syringe) 10 ml IV BID [facility] Last Admin: 07/03/20 09:47 Dose: 10 ml Documented by: Sodium Chloride (Sodium Chloride 0.9% 10 Ml Flush Syringe) 10 ml IV PRN PRN PRN Reason: LINE FLUSH Ticagrelor (Ticagrelor 90 Mg Tab) 90 mg PO BID [facility] Last Admin: 07/03/20 09:46 Dose: 90 mg Documented by: Review of Systems Constitutional: no weight loss, no weight gain, no fever, no chills, no sweats Ears, nose, mouth and throat: no ear pain, no nose pain, no sinus pressure, no sinus pain Cardiovascular: chest pain, no orthopnea, no rapid/irregular heart beat, no edema, no syncope, no lightheadedness, no shortness of breath, no dyspnea on exertion, no high blood pressure Respiratory: no cough, no shortness of breath, no dyspnea on exertion, no congestion, no wheezing, no pain on inspiration Gastrointestinal: abdominal pain, nausea, no vomiting, no diarrhea, no constipation, no change in bowel habits, no hematemesis, no coffee ground e mesis, no BRBPR, no melena Genitourinary Female: no pelvic pain, no flank pain, no dysuria, no urinary frequency, no urgency Musculoskeletal: no neck stiffness, no neck pain, no shooting arm pain, no arm numbness/tingling, no low back pain, no shooting leg pain Integumentary: no rash, no pruritis, no redness, no sores, no wounds Neurological: no head injury, no paralysis, no weakness, no parathesias, no numbness, no tingling, no seizures, no syncope Psychiatric: no anxiety Endocrine: no cold intolerance, no heat intolerance Hematologic/Lymphatic: no easy bruising Allergic/Immunologic: no urticaria Physical Examination Vital Signs Temp Pulse Resp BP Pulse Ox 98.1 F 118 H 18 149/94 99 07/02/20 22:56 07/02/20 22:56 07/02/20 22:56 07/02/20 22:56 07/02/20 22:56 General appearance: no acute distress HEENT: Positive: PERRL, Normocephaly, Mucus Membranes Moist Neck: Positive: neck supple, trachea midline Cardiac: Positive: Reg Rate and Rhythm, S1/S2 Lungs: Positive: clear to auscultation Neuro: Positive: Grossly Intact Abdomen: Negative: Tender Skin: Negative: Rash Musculoskeletal: No Pain Extremities: Absent: edema Results 07/03/20 05:20 07/03/20 05:20 Cardiac Enzymes 07/02/20 Range/Units 23:06 AST 14 (5-40) units/L Coagulation 07/02/20 Range/Units 23:06 PT 12.1 L (12.2-14.9) Sec. INR 0.91 (0.87-1.13) APTT 27.0 (24.2-36.6) Sec. CBC 07/02/20 07/03/20 Range/Units 23:06 05:20 WBC 7.9 8.2 (4.5-11.0) K/mm3 RBC 5.06 H 4.83 (3.65-5.03) M/mm3 Hgb 14.8 H 13.9 (10.1-14.3) gm/dl Hct 43.9 H 41.6 (30.3-42.9) % Plt Count 288 259 (140-440) K/mm3 Lymph # (Auto) 1.5 1.9 (1.2-5.4) K/mm3 [place] # (Auto) 0.6 0.7 (0.0-0.8) K/mm3 Eos # (Auto) 0.2 0.2 (0.0-0.4) K/mm3 Baso # (Auto) 0.1 0.1 (0.0-0.1) K/mm3 Comprehensive Metabolic Panel 07/02/20 07/03/20 Range/Units 23:06 05:20 Sodium 138 139 (137-145) mmol/L Potassium 3.7 4.3 (3.6-5.0) mmol/L Chloride 103.1 106.8 (98-107) mmol/L Carbon Dioxide 23 23 (22-30) mmol/L BUN 16 14 (7-17) mg/dL Creatinine 0.5 L 0.5 L (0.6-1.2) mg/dL Glucose 145 H 97 (65-100) mg/dL Calcium 9.4 8.8 (8.4-10.2) mg/dL AST 14 (5-40) units/L ALT 19 (7-56) units/L Alkaline Phosphatase 88 (35-129) units/L Total Protein 7.0 (6.3-8.2) g/dL Albumin 4.4 (3.9-5) g/dL - Imaging and Cardiology Echo: report reviewed (06/23/2020 showed EF 50-55%, no significant abnormalities. 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 She underwent treadmill MPI stress test which showed good exercise tolerance, nuclear imaging negative for ischemia, normal EF. However, pt c/o persistent chest pain and thus LHC was recommended. 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 tte done 06/23/2020 showed EF 50-55%, no significant abnormalities. Pt returns with c/o chest pain and abdominal pain. She is scheduled for abdomen/pelvis CT scan today. ECG with NAF, Edy negative for AMI x 2 sets. Cont home cardiac regimen. Consider GI consultation and evaluation for other non cardiac causes of chest pain per primary team. If chest pain persists despite optimal medical therapy and there is no apparent non cardiac source for chest pain, consider repeat LHC on Monday, 07/06. Will follow. The patient has been seen in conjunction with Dr. Cj Ny who agrees with the assessment and plan of care. - Patient Problems (1) Chest pain Current Visit: Yes Status: Acute Qualifiers: Chest pain type: unspecified Qualified Code(s): R07.9 - Chest pain, unspe cified (2) CAD (coronary artery disease) Current Visit: Yes Status: Chronic Qualifiers: Coronary Disease-Associated Artery/Lesion type: unspecified vessel or lesion type [place] vs. transplanted heart: [place] heart Associated angina: angina presence unspecified Qualified Code(s): I25.10 - Atherosclerotic heart disease of [place] coronary artery without angina pectoris (3) Stented coronary artery Current Visit: Yes Status: Chronic (4) Epistaxis Current Visit: Yes Status: Acute (5) Abdominal pain Current Visit: Yes Status: Acute Qualifiers: Abdominal location: left upper quadrant Qualified Code(s): R10.12 - Left upper quadrant pain (6) HTN (hypertension) Current Visit: Yes Status: Chronic (7) History of sarcoidosis Current Visit: Yes Status: Chronic Plan to address problem: 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
--- NOTE | 2020-07-03 10:40 | Event Note ---
Date: 07/03/20 The patient seen and examined, a little anxious this morning, no new complaints. Continue supportive care.
--- NOTE | 2020-07-03 11:05 | Cat Scan Report ---
CT ABDOMEN AND PELVIS WITHOUT CONTRAST HISTORY: abdominal pain COMPARISON: 10/19/2017 TECHNIQUE: Axial CT images were obtained through the abdomen and pelvis without IV contrast. Sagittal and coronal reformatted images. All CT scans at this location are performed using CT dose reduction for ALARA by means of automated exposure control. FINDINGS: CT ABDOMEN: Lung Bases: Clear. Liver: No significant abnormality. Biliary: Gallbladder is surgically absent. Spleen: No significant abnormality. Unenlarged. Pancreas: No acute abnormality. 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 Adrenals: No significant abnormality. Kidneys: Stable 2.6 cm right renal cyst. The kidneys and collecting systems are unremarkable otherwis e. Lymphatics: No lymphadenopathy. Vasculature: No significant abnormality. Bowel/Peritoneum: No significant abnormality. No free air. No free fluid. Appendectomy changes are palma spected. CT PELVIS: : Hysterectomy. The bladder and distal ureters are unremarkable. Osseous Structures: Stable mild scoliosis with moderate degenerative disc disease at L3-4. Additional Findings: None IMPRESSION: No acute process is appreciated. No significant change since 10/19/2017. Signer Name: Yohan Salazar Jr, MD Signed: 07/03/2020 11:01 AM Workstation Name: [id number]
[2020-07-03] MEDS ORDERED: ENOXAPARIN 40 MG/0.4 ML INJ SUB-Q SCH (22:00)
[2020-07-04 07:08] LABS: Basophils # (Auto) 0.1 K/mm3 (0.0-0.1); Basophils % (Auto) 0.9 % (0.0-1.8); Eosinophils # (Auto) 0.2 K/mm3 (0.0-0.4); Eosinophils % (Auto) 3.5 % (0.0-4.3); Hematocrit 40.9 % (30.3-42.9); Hemoglobin 14.1 gm/dl (10.1-14.3); Lymphocytes # (Auto) 1.9 K/mm3 (1.2-5.4); Mean Corpuscular HGB Conc 35 % (30-34); Mean Corpuscular Volume 87 fl (79-97); Monocytes # (Auto) 0.6 K/mm3 (0.0-0.8); Monocytes % (Auto) 9.4 % (0.0-7.3); Platelet Count 233 K/mm3 (140-440); Red Blood Count 4.72 M/mm3 (3.65-5.03); Red Cell Distribution Width 12.3 % (13.2-15.2)
[2020-07-04 07:19] LABS: INR 1.11 (0.87-1.13)
[2020-07-04 07:29] LABS: Blood Urea Nitrogen 15 mg/dL (7-17); Calcium 9.1 mg/dL (8.4-10.2); Hemolysis Index 41
[2020-07-04 07:32] LABS: BUN/Creatinine Ratio 30
[2020-07-04] MEDS: METOPROLOL TARTRATE 25 MG TAB PO SCH (08:07)
[2020-07-04] MEDS: ONDANSETRON 4 MG/2 ML INJ IV PRN (08:14)
[2020-07-04] MEDS: ASPIRIN EC 81 MG TAB PO SCH (09:10)
[2020-07-04] MEDS: TICAGRELOR 90 MG TAB PO SCH (09:10)
[2020-07-04] MEDS: LISINOPRIL 5 MG TAB PO SCH (09:10)
[2020-07-04] MEDS: FAMOTIDINE 20 MG TAB PO SCH (09:10)
[2020-07-04] MEDS ORDERED: PANTOPRAZOLE 40 MG INJ IV SCH (10:00)
[2020-07-04] MEDS ORDERED: ASPIRIN EC 325 MG TAB PO SCH (10:00)
[2020-07-04] MEDS ORDERED: [UNRECOGNIZED DRUG - OTHER] NS SCH (10:00)
--- NOTE | 2020-07-04 10:26 | Discharge Summary ---
Providers - Providers Date of Admission: 07/03/20 00:33 Attending physician: LUCINDA DAVIS MD 07/03/20 Consult to Cardiac Rehabilitation [CONS] Routine Reason For Exam: Phase I 07/03/20 01:28 Consult to Cardiology [CONS] Routine Consulting Provider: GEOVANNA GLYNN Reason For Exam: CHEST PAIN Primary care physician: FURNITURE FABRICATOR Hospitalization Reason for admission: Chest pain Condition: Stable Hospital course: Patient is a 49-year-old female with known history of asthma, sarcoidosis, arthritis and coronary artery disease status post cardiac stent placement about a week ago presenting to the emergency room today complaining of for chest pain. Chest pain was said to have started earlier this evening and tends to be worse dante. Pain is worse on exertion and improves upon resting. She has been compliant with aspirin and Brilinta. Chest pain is said to felt like pressure in the substernal area. Patient has had associated nausea but no vomiting, no abdominal pain, no fever or chills, she has had some headache but no dizziness. She had some nosebleed prior to reporting to the emergency room which has since resolved. Patient denies any sick contacts and no recent travel, denies any contact with anyone with COVID-19. Work-up in the emergency room today so far has been unremarkable. Patient is being admitted for chest pain evaluation. 07/04: Patient has been evaluated no new complaints reported. Today she is reports more of abdominal pain also talked to me about anxiety but no suicidal homicidal ideation. Discussed with chartered financial analyst Ranexa will be added and constantly since stent placement patient will be recommended to have outpatient follow-up with GI for possible endoscopy in the future. Also psych recommendation also placed per patient's request. (1) Chest pain Current Visit: Yes Status: Acute Qualifiers: Chest pain type: unspecified Qualified Code(s): R07.9 - Chest pain, unspecified Plan to address problem: Patient admitted and placed on telemetry. Will monitor serial cardiac enzymes. Consult placed to cardiology for evaluation. Patient was supposed to be following up with Dr. Glynn after being discharged from the hospital recently. (2) CAD (coronary artery disease) Current Visit: Yes Status: Acute Qualifiers: Coronary Disease-Associated Artery/Lesion type: unspecified vessel or lesion type [place] vs. transplanted heart: [place] heart Associated angina: angina presence unspecified Qualified Code(s): I25.10 - Atherosclerotic heart disease of [place] coronary artery without angina pectoris Plan to address problem: Patient had a cardiac stent placement about a week ago. She had about 80 to 90% occlusion of the circumflex. We will continue patient's routine home medications and await cardiology evaluation. (3) Anxiety Current Visit: No Status: Chronic Plan to address problem: We will continue routine home medications. (4) HTN (hypertension) Current Visit: No Status: Chronic Plan to address problem: Patient will be continued on her routine antihypertensive and will monitor vital signs closely. (5) History of asthma Current Visit: No Status: Chronic Plan to address problem: Patient will be placed on routine inhalers as needed. (6) Severe GERD Disposition: DC-01 TO HOME OR SELFCARE Time spent for discharge: 35 MINS Core Measure Documentation - Palliative Care Palliative Care/ Comfort Measures: Not Applicable - Core Measures Any of the following diagnoses?: none Exam - Physical Exam Narrative exam: VITAL SIGNS: Reviewed. GENERAL: The patient appears normally developed, Vital signs as documented. HEAD: No signs of head trauma. EYES: Pupils are equal. Extraocular motions intact. EARS: Hearing grossly intact. MOUTH: Oropharynx is normal. NECK: No adenopathy, no JVD. CHEST: Chest with clear breath sounds bilaterally. No wheezes, rales, or rhonchi. CARDIAC: Regular rate and rhythm. S1 and S2, without murmurs, gallops, or rubs. VASCULAR: No Edema. Peripheral pulses normal and equal in all extremities. ABDOMEN: Soft, non tender and non distended. No rebound or guarding, and no masses palpated. Bowel Sounds normal. MUSCULOSKELETAL: Good range of motion of all major joints. Extremities without clubbing, cyanosis or edema. NEUROLOGIC EXAM: Alert and oriented x 3 No focal sensory or strength deficits. Speech normal. Follows commands. PSYCHIATRIC: Mood normal. SKIN: detail exam as documented in skin assessment - Constitutional Vitals: Temp Pulse Resp BP Pulse Ox 97.7 F 68 20 101/58 98 07/04/20 08:55 07/04/20 08:55 07/04/20 08:55 07/04/20 08:55 07/04/20 08:55 Plan Activity: advance as tolerated, fall precautions Diet: low fat Special Instructions: record daily weights, record daily BP diary Follow up with: JL SHIN MD [Staff Physician] - 7 Days GEOVANNA GLYNN MD [Staff Physician] - 7 Days KEVIN NESBITT MD [Staff Physician] - 7 Days SHERRI MORENO MD [Staff Physician] - 7 Days Prescriptions: Pantoprazole [Protonix] 40 mg PO QDAY #30 tablet Ranolazine [Ranexa] 500 mg PO BID #60 tab.er.12h Ondansetron [Zofran ODT TAB] 4 mg PO Q6HR PRN #12 tab.rapdis PRN Reason: Nausea
--- NOTE | 2020-07-04 10:48 | Progress Note ---
Assessment and Plan 49-year-old female with recent RCA stent did not feel better after stenting patient's pain is somewhat atypical in nature continue dual antiplatelet statin beta-nely. Patient also be on a PPI follow with GI as an outpatient. Add Ranexa for possible small vessel disease. Follow-up with primary airworthiness inspector in 1 week's time negative troponin patient is ambulatory without chest pain or shortness of breath - Patient Problems (1) Chest pain Current Visit: Yes Status: Acute Qualifiers: Chest pain type: unspecified Qualified Code(s): R07.9 - Chest pain, unspecified (2) CAD (coronary artery disease) Current Visit: Yes Status: Chronic Qualifiers: Coronary Disease-Associated Artery/Lesion type: unspecified vessel or lesion type [place] vs. transplanted heart: [place] heart Associated angina: angina presence unspecified Qualified Code(s): I25.10 - Atherosclerotic heart disease of [place] coronary artery without angina pectoris (3) HTN (hypertension) Current Visit: Yes Status: Chronic Subjective Date of service: 07/04/20 Principal diagnosis: cp Interval history: Patient is walk around the room without issue atypical chest Objective Vital Signs Temp Pulse Pulse Pulse Resp BP BP 07/04/20 08:55 97.7 F 68 20 101/58 07/04/20 08:07 64 07/04/20 04:47 97.4 F L 64 16 107/67 07/03/20 23:47 97.3 F L 72 16 92/52 07/03/20 22:00 72 66 66 18 07/03/20 20:29 97.8 F 66 16 98/68 07/03/20 15:03 98.0 F 62 112/64 Pulse Ox 07/04/20 08:55 98 07/04/20 08:07 07/04/20 04:47 97 07/03/20 23:47 94 07/03/20 22:00 99 07/03/20 20:29 95 07/03/20 15:03 100 - Physical Examination General: No Apparent Distress HEENT: Positive: PERRL, Normocephaly, Mucus Membranes Moist Neck: Positive: neck supple, trachea midline Cardiac: Positive: Reg Rate and Rhythm Lungs: Positive: clear to auscultation Neuro: Positive: Grossly Intact Abdomen: Negative: Tender Skin: Negative: Rash Musculoskeletal: No Pain Extremities: Absent: edema - Labs and Meds Coagulation 07/04/20 Range/Units 05:46 PT 14.1 (12.2-14.9) Sec. INR 1.11 (0.87-1.13) CBC 07/04/20 Range/Units 05:46 WBC 6.2 (4.5-11.0) K/mm3 RBC 4.72 (3.65-5.03) M/mm3 Hgb 14.1 (10.1-14.3) gm/dl Hct 40.9 (30.3-42.9) % Plt Count 233 (140-440) K/mm3 Lymph # (Auto) 1.9 (1.2-5.4) K/mm3 [place] # (Auto) 0.6 (0.0-0.8) K/mm3 Eos # (Auto) 0.2 (0.0-0.4) K/mm3 Baso # (Auto) 0.1 (0.0-0.1) K/mm3 Comprehensive Metabolic Panel 07/04/20 Range/Units 05:46 Sodium 138 (137-145) mmol/L Potassium 4.1 (3.6-5.0) mmol/L Chloride 104.5 (98-107) mmol/L Carbon Dioxide 24 (22-30) mmol/L BUN 15 (7-17) mg/dL Creatinine 0.5 L (0.6-1.2) mg/dL Glucose 75 (65-100) mg/dL Calcium 9.1 (8.4-10.2) mg/dL - Imaging and Cardiology EKG: report reviewed, image reviewed Echo: report reviewed (06/23/2020 showed EF 50-55%, no significant abnormalities. ) Cardiac cath: report reviewed (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
[2020-07-04 11:47] VITALS: BP 89/55
[2020-07-04] MEDS ORDERED: RANOLAZINE ER 500 MG TAB 12HR PO SCH (14:00)
[2020-07-05] MEDS ORDERED: PANTOPRAZOLE 40 MG TAB PO SCH (07:30)
== END 2020-07-04 16:31 | disposition home or self-care (01) ==
LOC: ED 22:52 → 4A 07-03 00:33
PROVIDERS: ADMIT Internal Medicine Geriatric Medicine; ATTEND Internal Medicine
DX: I25.10 Atherosclerotic heart disease of native coronary artery without angina pectoris (principal); R07.89 Other chest pain; I10 Essential (primary) hypertension; J45.909 Unspecified asthma, uncomplicated; F41.9 Anxiety disorder, unspecified; M19.90 Unspecified osteoarthritis, unspecified site; D86.9 Sarcoidosis, unspecified; R04.0 Epistaxis; G47.33 Obstructive sleep apnea (adult) (pediatric); Z90.49 Acquired absence of other specified parts of digestive tract; Z90.710 Acquired absence of both cervix and uterus; Z98.890 Other specified postprocedural states; Z79.82 Long term (current) use of aspirin; Z95.1 Presence of aortocoronary bypass graft
CPT/HCPCS: 36415; 71046; 74176; 80048; 80053; 83690; 84484; 85025; 85610; 85730; 87641; 93005; 94640; 96372; 96374; 96375; 96376; 99291; A9270; C9113; G0378; J1650; J2270; J2405; 85007

== ENCOUNTER 2020-07-19 23:54 | Emergency (ER) | payer OTHER ==
--- NOTE | 2020-07-20 02:02 | XRay Report ---
CHEST 2 VIEWS INDICATION: chest pain. COMPARISON: 07/02/2020. FINDINGS: Support devices: None. Heart: Within normal limits. Lungs/Pleura: No acute air space or interstitial disease. Persistent elevation left hemidiaphragm. Fa t pad right cardiophrenic angle. No significant pleural effusion. IMPRESSION: No acute findings. Signer Name: Efrem Concepcion MD Signed: 07/20/2020 1:57 AM Workstation Name: [id number]
--- NOTE | 2020-07-20 02:09 | Event Note ---
ED Screening Note Date of service: 07/20/20 Time: 02:08 ED Screening Note: Patient presents with complaints of chest pain, shortness of breath, and left leg pain today States had a cardiac stent placed 1 month ago States she is currently on aspirin and Ranexa 40This initial assessment/diagnostic orders/clinical plan/treatment(s) is/are subject to change based on patients health status, clinical progression and re- assessment by fellow clinical providers in the ED. Further treatment and workup at subsequent clinical providers discretion. Patient/guardian urged not to elope from the ED as their condition may be serious if not clinically assessed and managed. Initial orders include: Labs EKG Chest x-ray
[2020-07-20 02:24] LABS: Basophils # (Auto) 0.1 K/mm3 (0.0-0.1); Basophils % (Auto) 0.7 % (0.0-1.8); Eosinophils # (Auto) 0.3 K/mm3 (0.0-0.4); Eosinophils % (Auto) 2.9 % (0.0-4.3); Hemoglobin 14.9 gm/dl (10.1-14.3); Lymphocytes # (Auto) 1.7 K/mm3 (1.2-5.4); Lymphocytes % (Auto) 17.7 % (13.4-35.0); Mean Corpuscular HGB Conc 35 % (30-34); Mean Corpuscular Volume 85 fl (79-97); Monocytes % (Auto) 10.7 % (0.0-7.3); Platelet Count 242 K/mm3 (140-440); Red Blood Count 5.03 M/mm3 (3.65-5.03); Red Cell Distribution Width 12.6 % (13.2-15.2)
[2020-07-20 02:36] LABS: Alanine Aminotransferase 15 units/L (7-56); Albumin 4.5 g/dL (3.9-5); Blood Urea Nitrogen 15 mg/dL (7-17); Calcium 9.8 mg/dL (8.4-10.2); Hemolysis Index 9
[2020-07-20 02:37] LABS: BUN/Creatinine Ratio 30
[2020-07-20 02:47] LABS: INR 0.87 (0.87-1.13)
[2020-07-20 02:48] LABS: Partial Thromboplastin Time 26.8 Sec. (24.2-36.6)
--- NOTE | 2020-07-20 03:37 | Emergency Department Report ---
ED Chest Pain HPI - General Chief Complaint: Chest Pain Stated Complaint: CHEST PAIN/NAUSEA/EMESIS/LOSS OF APPETITE Time Seen by Provider: 07/20/20 01:59 Source: patient Mode of arrival: Ambulatory Limitations: No Limitations - History of Present Illness Initial Comments: CC: stomach pain, nausea, chest pain " I hate to bother y'all but it made me so upset. I have not had a good appetite." This is a 49 yo female with hx of HTN, asthma, sarcoidosis, CAD s/p recent stent placement who presents with epigastric pain radiating to chest with nausea persi stent for several days. Chest burning at rest. She does not know if "it is the heart or the stomach". She is unable to see GI specialist until next appt in August. She has had left leg pain for several days. NO injury. Moderately achy pain. Patient also has had abdominal bloating poor appetite. According to EMR:patient admitted twice last month for chest pain. 06/23/2020: stress test negative for ischemia 06/24/2020: LHC: PCI to circumflex Patient readmitted 07/03/2020 for chest pain MD Complaint: chest pain -: Gradual, days(s) (Several days) Onset: during rest Pain Location: substernal Severity: moderate Consistency: constant Improves With: nothing Worsens With: nothing re: nausea - Related Data Previous Rx's Medication Instructions Recorded Last Taken Type Albuterol Sulfate [Proventil Hfa] 6.7 gm IH Q6HR PRN #1 hfa.aer.ad 10/20/17 Unknown Rx Mometasone Furoate [Asmanex Hfa] 13 gm IH BID #1 hfa.aer.ad 10/20/17 07/02/20 Rx Famotidine [Pepcid] 20 mg PO Q12H #60 tablet 03/17/19 07/02/20 Rx Aspirin EC [Halfprin EC] 81 mg PO QDAY #30 tablet. 06/25/20 07/02/20 Rx AtorvaSTATin [Lipitor] 40 mg PO QHS #30 tablet 06/25/20 07/02/20 Rx Metoprolol [Lopressor TAB] 25 mg PO BID #60 tablet 06/25/20 07/02/20 Rx Ticagrelor [Brilinta] 90 mg PO BID #60 tablet 06/25/20 07/02/20 Rx lisinopriL [Zestril TAB] 5 mg PO QDAY #30 tablet 06/25/20 07/02/20 Rx Ondansetron [Zofran ODT TAB] 4 mg PO Q6HR PRN #12 tab.rapdis 07/04/20 Unknown Rx Pantoprazole [Protonix] 40 mg PO QDAY #30 tablet 07/04/20 Unknown Rx Ranolazine [Ranexa] 500 mg PO BID #60 tab.er.12h 07/04/20 Unknown Rx Omeprazole 40 mg PO DAILY #30 capsule. 07/20/20 Unknown Rx Allergies Allergy/AdvReac Type Severity Reaction Status Date / Time promethazine [From Phenergan] Allergy Hives Verified 07/20/20 00:24 sulfamethoxazole Allergy Itching Verified 10/19/17 01:48 [From Bactrim] trimethoprim [From Bactrim] Allergy Itching Verified 10/19/17 01:48 Heart Score - HEART Score History: Slightly suspicious EKG: Non-specific Age: 45-65 Risk factors: 1-2 risk factors Troponin: < normal limit HEART Score: 3 ED Review of Systems ROS: Stated complaint: CHEST PAIN/NAUSEA/EMESIS/LOSS OF APPETITE Other details as noted in HPI Comment: All other systems reviewed and negative Constitutional: denies: fever, malaise Respiratory: denies: cough, shortness of breath Cardiovascular: chest pain Gastrointestinal: abdominal pain, nausea, vomiting ED Past Medical Hx - Past Medical History Previous Medical History?: Yes Hx Congestive Heart Failure: No Hx Diabetes: No Hx Arthritis: Yes Hx Asthma: Yes Hx COPD: No Additional medical history: CAD. sarcodosis - Surgical History Past Surgical History?: Yes Hx Coronary Stent: Yes (x1) Hx Cholecystectomy: Yes Hx Appendectomy: Yes Additional Surgical History: hysterectomy - Social History Smoking Status: Never Smoker Substance Use Type: Alcohol - Medications Home Medications: Home Medications Medication Instructions Recorded Confirmed Last Taken Type Albuterol Sulfate [Proventil Hfa] 6.7 gm IH Q6HR PRN #1 hfa.aer.ad 10/20/17 07/03/20 Unknown Rx Mometasone Furoate [Asmanex Hfa] 13 gm IH BID #1 hfa.aer.ad 10/20/17 07/03/20 07/02/20 Rx Famotidine [Pepcid] 20 mg PO Q12H #60 tablet 03/17/19 07/03/20 07/02/20 Rx Aspirin EC [Halfprin EC] 81 mg PO QDAY #30 tablet. 06/25/20 07/03/20 07/02/20 Rx AtorvaSTATin [Lipitor] 40 mg PO QHS #30 tablet 06/25/20 07/03/20 07/02/20 Rx Metoprolol [Lopressor TAB] 25 mg PO BID #60 tablet 06/25/20 07/03/20 07/02/20 Rx Ticagrelor [Brilinta] 90 mg PO BID #60 tablet 06/25/20 07/03/20 07/02/20 Rx lisinopriL [Zestril TAB] 5 mg PO QDAY #30 tablet 06/25/20 07/03/20 07/02/20 Rx Ondansetron [Zofran ODT TAB] 4 mg PO Q6HR PRN #12 tab.rapdis 07/04/20 Unknown Rx Pantoprazole [Protonix] 40 mg PO QDAY #30 tablet 07/04/20 Unknown Rx Ranolazine [Ranexa] 500 mg PO BID #60 tab.er.12h 07/04/20 Unknown Rx Omeprazole 40 mg PO DAILY #30 capsule. 07/20/20 Unknown Rx ED Physical Exam - General Limitations: No Limitations General appearance: alert, in no apparent distress, anxious - Head Head exam: Present: atraumatic, normocephalic - Eye Eye exam: Present: normal appearance - ENT ENT exam: Present: mucous membranes moist - Neck Neck exam: Present: normal inspection, full ROM - Respiratory Respiratory exam: Present: normal lung sounds bilaterally. Absent: respiratory distress, wheezes, rales, rhonchi - Cardiovascular Cardiovascular Exam: Present: regular rate, normal rhythm, normal heart sounds. Absent: systolic murmur, diastolic murmur, rubs, gallop - GI/Abdominal GI/Abdominal exam: Present: soft, normal bowel sounds. Absent: distended, tenderness, guarding, rebound - Extremities Exam Extremities exam: Present: normal inspection - Back Exam Back exam: Present: normal inspection - Neurological Exam Neurological exam: Present: alert, oriented X3 - Psychiatric Psychiatric exam: Present: normal affect, depressed, anxious - Skin Skin exam: Present: warm, dry, intact, normal color. Absent: rash ED Course Vital Signs 07/20/20 07/20/20 00:24 03:42 Temperature 97.9 F 98.1 F Pulse Rate 92 H 92 H Respiratory 17 15 Rate Blood Pressure 139/91 Blood Pressure 120/78 [Left] O2 Sat by Pulse 100 98 Oximetry FER score - Fer Score Age > 65: (0) No Aspirin use within the Past 7 Days: (0) No 3 or more CAD Risk Factors: (0) No 2 or more Angina events in past 24 hrs: (1) Yes Known CAD with more than 50% Stenosis: (0) No Elevated Cardiac Markers: (0) No ST Deviation Greater than 0.5mm: (0) No FER Score: 1 ED Medical Decision Making - Lab Data Result diagrams: 07/20/20 01:33 07/20/20 01:33 Laboratory Results - last 24 hr 07/20/20 07/20/20 07/20/20 01:33 01:33 02:10 WBC 9.3 RBC 5.03 Hgb 14.9 H Hct 43.0 H MCV 85 MCH 30 MCHC 35 H RDW 12.6 L Plt Count 242 Lymph % (Auto) 17.7 [place] % (Auto) 10.7 H Eos % (Auto) 2.9 Baso % (Auto) 0.7 Lymph # (Auto) 1.7 [place] # (Auto) 1.0 H Eos # (Auto) 0.3 Baso # (Auto) 0.1 Seg Neutrophils % 68.0 Seg Neutrophils # 6.3 PT 11.6 L INR 0.87 APTT 26.8 D-Dimer 165.84 Sodium 138 Potassium 4.5 Chloride 101.4 Carbon Dioxide 26 Anion Gap 15 BUN 15 Creatinine 0.5 L Estimated GFR > 60 BUN/Creatinine Ratio 30 Glucose 94 Calcium 9.8 Total Bilirubin 0.20 AST 13 ALT 15 Alkaline Phosphatase 92 Troponin T < 0.010 Total Protein 6.8 Albumin 4.5 Albumin/Globulin Ratio 2.0 - EKG Data -: EKG Interpreted by Me EKG shows normal: sinus rhythm, axis, intervals, QRS complexes, ST-T waves Rate: normal - EKG Data Interpretation: normal EKG 07/20/20 04:32 EKG obtained 30 EKG interpreted by me Normal sinus rhythm normal rate normal axis normal intervals no ST elevation no ST-T signs of ischemia normal EKG 07/20/20 04:32 - Radiology Data Radiology results: report reviewed CHEST 1 VIEW 07/20/2020 3:01 AM INDICATION / CLINICAL INFORMATION: shortness of breath. COMPARISON: None available. FINDINGS: SUPPORT DEVICES: None. HEART / MEDIASTINUM: No significant abnormality. LUNGS / PLEURA: No significant pulmonary or pleural abnormality. Prior granulomatous exposure. No pneumothorax. ADDITIONAL FINDINGS: No significant additional findings. IMPRESSION: No acute abnormality. Chest radiograph no acute findings Duplex ultrasound: Negative for DVT - Medical Decision Making 1. Abdominal chest pain suspicious of GERD: Patient was unable to fill Protonix. Patient's personal pharmacy did not have access to this medication. I change his medication to omeprazole. Patient given reassurance. 2. Chest pain which I associate with GERD: Patient has had medical management of coronary artery disease optimized. Patient given reassurance. Chest pain is atypical for ACS. 3. Left leg pain without trauma without evidence of DVT, patient had mild bruising which would be typical for a dual platelet therapy CBC chemistry troponin all within normal limits. EKG is normal. Chest radiograph normal. Critical care attestation.: If time is entered above; I have spent that time in minutes in the direct care of this critically ill patient, excluding procedure time. ED Disposition Clinical Impression: Abdominal pain, Chest pain, GERD (gastroesophageal reflux disease) Disposition: - TO HOME OR SELFCARE Is pt being admited?: No Does the pt Need Aspirin: No Condition: Stable Instructions: Chest Pain (ED), Gastroesophageal Reflux Disease, Adult Prescriptions: Omeprazole 40 mg PO DAILY #30 capsule. Referrals: PRIMARY CARE, [Primary Care Provider] - 3-5 Days
[2020-07-20 05:08] VITALS: BP 143/89
--- NOTE | 2020-07-20 08:00 | Vascular Lab Report ---
DUPLEX DOPPLER LOWER EXTREMITY VEINS, BILATERAL INDICATION: pain in calf. TECHNIQUE: Duplex doppler imaging was performed through the veins of both lower extremities using venous douglas carissa and other maneuvers. COMPARISON: None available. FINDINGS: Right Common femoral vein: Negative. Right Superficial femoral vein: Negative. Right Popliteal vein: Negative. Right Calf veins: Negative. Left Common femoral vein: Negative. Left Superficial femoral vein: Negative. Left Popliteal vein: Negative. Left Calf veins: Negative. Additional findings: None. IMPRESSION: Negative for DVT. Signer Name: Efrem Concepcion MD Signed: 07/20/2020 3:19 AM Workstation Name: [id number]
== END 2020-07-20 05:02 | disposition home or self-care (01) ==
LOC: ED 23:54
DX: K21.9 Gastro-esophageal reflux disease without esophagitis (principal); R07.89 Other chest pain; R10.9 Unspecified abdominal pain; M19.91 Primary osteoarthritis, unspecified site; J45.909 Unspecified asthma, uncomplicated; Z90.49 Acquired absence of other specified parts of digestive tract; Z90.710 Acquired absence of both cervix and uterus; Z79.899 Other long term (current) drug therapy; Z88.8 Allergy status to other drugs, medicaments and biological substances
CPT/HCPCS: 36415; 71046; 80053; 84484; 85025; 85379; 85610; 85730; 93005; 93970

== ENCOUNTER 2020-07-27 23:14 | Observation (INO) | payer OTHER ==
--- NOTE | 2020-07-28 00:02 | Emergency Department Report ---
ED Chest Pain HPI - General Chief Complaint: Chest Pain Stated Complaint: CHEST PAIN/NAUSEA/BODY BRUISING Time Seen by Provider: 07/27/20 23:44 Source: patient Mode of arrival: Ambulatory Limitations: No Limitations - History of Present Illness Initial Comments: This is a 49-year-old female presents to the emergency department with a complaint of left upper chest pain and shortness of breath that has been going on intermittently over the past 3 to 4 weeks. Patient has had multiple visits to this emergency department and this hospital for chest pain. On 06/23/2020 the patient had a stress test that was negative for any ischemic changes. The next day, the patient had a cardiac catheterization that showed a 90% blockage of the distal RCA and was given a drug-eluting stent. Initially, after the catheterization, the patient began feeling improved. However, about 1 week later the patient began having the aforementioned symptoms again. Currently her pain is 4 out of 10 in intensity. It worsens with any exertion. She has a past medical history of asthma, sarcoidosis, coronary artery disease. Patient says "my mom from CAD." She denies any tobacco or illicit drug use. Secondarily, the patient complains of a area of bruising and swelling to the right forearm. She is unsure whether or not she may have hit her arm on some thing. She is currently on aspirin and Brilinta. Severity scale (0 -10): 5 - Related Data Previous Rx's Medication Instructions Recorded Last Taken Type Albuterol Sulfate [Proventil Hfa] 6.7 gm IH Q6HR PRN #1 hfa.aer.ad 10/20/17 Unknown Rx Mometasone Furoate [Asmanex Hfa] 13 gm IH BID #1 hfa.aer.ad 10/20/17 07/02/20 Rx Famotidine [Pepcid] 20 mg PO Q12H #60 tablet 03/17/19 07/02/20 Rx Aspirin EC [Halfprin EC] 81 mg PO QDAY #30 tablet. 06/25/20 07/02/20 Rx AtorvaSTATin [Lipitor] 40 mg PO QHS #30 tablet 06/25/20 07/02/20 Rx Metoprolol [Lopressor TAB] 25 mg PO BID #60 tablet 06/25/20 07/02/20 Rx Ticagrelor [Brilinta] 90 mg PO BID #60 tablet 06/25/20 07/02/20 Rx lisinopriL [Zestril TAB] 5 mg PO QDAY #30 tablet 06/25/20 07/02/20 Rx Ondansetron [Zofran ODT TAB] 4 mg PO Q6HR PRN #12 tab.rapdis 07/04/20 Unknown Rx Pantoprazole [Protonix] 40 mg PO QDAY #30 tablet 07/04/20 Unknown Rx Ranolazine [Ranexa] 500 mg PO BID #60 tab.er.12h 07/04/20 Unknown Rx Omeprazole 40 mg PO DAILY #30 capsule. 07/20/20 Unknown Rx Allergies Allergy/AdvReac Type Severity Reaction Status Date / Time promethazine [From Phenergan] Allergy Hives Verified 07/20/20 00:24 sulfamethoxazole Allergy Itching Verified 10/19/17 01:48 [From Bactrim] trimethoprim [From Bactrim] Allergy Itching Verified 10/19/17 01:48 Heart Score - HEART Score History: Slightly suspicious EKG: Normal Age: 45-65 Risk factors: > 3 risk factors or hx of atherosclerotic disease Troponin: < normal limit HEART Score: 3 - Critical Actions Critical Actions: 0-3 pts:0.9-1.7%risk of adverse cardiac event.Candidate for discharge ED Review of Systems ROS: Stated complaint: CHEST PAIN/NAUSEA/BODY BRUISING Other details as noted in HPI Comment: All other systems reviewed and negative Constitutional: denies: chills, fever Eyes: denies: eye pain, vision change ENT: denies: ear pain, throat pain Respiratory: shortness of breath. denies: cough Cardiovascular: chest pain. denies: palpitations Gastrointestinal: denies: abdominal pain, vomiting Genitourinary: denies: dysuria, discharge Musculoskeletal: arthralgia. denies: back pain Skin: other (Right forearm bruising). denies: rash Neurological: denies: headache, weakness ED Past Medical Hx - Past Medical History Hx Congestive Heart Failure: No Hx Diabetes: No Hx Arthritis: Yes Hx Asthma: Yes Hx COPD: No Additional medical history: CAD. sarcodosis - Surgical History Hx Coronary Stent: Yes (x1) Hx Cholecystectomy: Yes Hx Appendectomy: Yes Additional Surgical History: hysterectomy - Social History Smoking Status: Never Smoker Substance Use Type: None - Medications Home Medications: Home Medications Medication Instructions Recorded Confirmed Last Taken Type Albuterol Sulfate [Proventil Hfa] 6.7 gm IH Q6HR PRN #1 hfa.aer.ad 10/20/17 07/03/20 Unknown Rx Mometasone Furoate [Asmanex Hfa] 13 gm IH BID #1 hfa.aer.ad 10/20/17 07/03/20 07/02/20 Rx Famotidine [Pepcid] 20 mg PO Q12H #60 tablet 03/17/19 07/03/20 07/02/20 Rx Aspirin EC [Halfprin EC] 81 mg PO QDAY #30 tablet. 06/25/20 07/03/20 07/02/20 Rx AtorvaSTATin [Lipitor] 40 mg PO QHS #30 tablet 06/25/20 07/03/20 07/02/20 Rx Metoprolol [Lopressor TAB] 25 mg PO BID #60 tablet 06/25/20 07/03/20 07/02/20 Rx Ticagrelor [Brilinta] 90 mg PO BID #60 tablet 06/25/20 07/03/20 07/02/20 Rx lisinopriL [Zestril TAB] 5 mg PO QDAY #30 tablet 06/25/20 07/03/20 07/02/20 Rx Ondansetron [Zofran ODT TAB] 4 mg PO Q6HR PRN #12 tab.rapdis 07/04/20 Unknown Rx Pantoprazole [Protonix] 40 mg PO QDAY #30 tablet 07/04/20 Unknown Rx Ranolazine [Ranexa] 500 mg PO BID #60 tab.er.12h 07/04/20 Unknown Rx Omeprazole 40 mg PO DAILY #30 capsule. 07/20/20 Unknown Rx ED Physical Exam - General Limitations: No Limitations - Other Other exam information: GENERAL: The patient is well-developed well-nourished. HENT: Normocephalic. Atraumatic. Patient has moist mucous membranes. EYES: Extraocular motions are intact. NECK: Supple. Trachea is midline. CHEST/LUNGS: Clear to auscultation. There is no respiratory distress noted. Chest pain is not reproducible to palpation of the chest wall. HEART/CARDIOVASCULAR: Regular. There is no tachycardia. There is no murmur. ABDOMEN: Abdomen is soft, nontender. Patient has normal bowel sounds. There is no abdominal distention. SKIN: Skin is warm and dry. There is a circular area of ecchymosis with a small underlying hematoma to the mid right forearm. NEURO: The patient is awake, alert, and oriented. The patient is cooperative. The patient has no focal neurologic deficits. Normal speech. MUSCULOSKELETAL: There is no tenderness or deformity. There is no limitation range of motion. ED Course Vital Signs 07/27/20 07/28/20 07/28/20 23:22 00:00 02:05 Temperature 98.1 F Pulse Rate 109 H 103 H 93 H Respiratory 18 12 18 Rate Blood Pressure 147/84 Blood Pressure 121/77 [Left] O2 Sat by Pulse 100 100 98 Oximetry 07/28/20 02:11 Temperature Pulse Rate Respiratory 16 Rate Blood Pressure Blood Pressure [Left] O2 Sat by Pulse Oximetry FER score - Fer Score Age > 65: (0) No Aspirin use within the Past 7 Days: (1) Yes 3 or more CAD Risk Factors: (1) Yes 2 or more Angina events in past 24 hrs: (1) Yes Known CAD with more than 50% Stenosis: (1) Yes Elevated Cardiac Markers: (0) No ST Deviation Greater than 0.5mm: (0) No FER Score: 4 ED Medical Decision Making - Lab Data Result diagrams: 07/28/20 00:05 07/28/20 00:05 - EKG Data -: EKG Interpreted by Me EKG shows normal: sinus rhythm, axis, intervals, QRS complexes, ST-T waves Rate: tachycardia (108 bpm) - EKG Data When compared to previous EKG there are: no significant change Interpretation: unchanged when compared t (07/20/20) - Radiology Data Radiology results: image reviewed interpreted by me: Chest x-ray does not show any acute process. There are no pleural effusions, obvious pneumonia and there is no pneumothorax. No significant cardiomegaly. X-ray of the right forearm does not show any fracture, dislocation, soft tissue foreign bodies or any acute process. - Medical Decision Making This patient presents to the emergency department with chest pain that has been going on since shortly after her heart catheterization. EKG does not show any morphology consistent with ST elevation myocardial infarction. Chest x-ray does not show any pneumonia, pleural effusions, pneumothorax, or any other acute process. An x-ray was done of the right forearm secondary to a persistent area of ecchymosis and suspected hematoma, despite no obvious history of trauma. This x-ray did not show any fracture, dislocation, foreign body, or any other acute process. Patient's labs have been mostly unremarkable thus far including CBC, metabolic panel, negative D-dimer and a negative troponin x1 thus far. Since the patient has had multiple visits for chest pain since having her cardiac catheterization, she will be admitted as an observational stay for further evaluation and was accepted for admission by the hospitalist, Dr. Ramos. Critical Care Time: No Critical care attestation.: If time is entered above; I have spent that time in minutes in the direct care of this critically ill patient, excluding procedure time. ED Disposition Clinical Impression: Angina at rest Chest pain Qualifiers: Chest pain type: unspecified Qualified Code(s): R07.9 - Chest pain, unspecified CAD (coronary artery disease) Qualifiers: Coronary Disease-Associated Artery/Lesion type: unspecified vessel or lesion type [place] vs. transplanted heart: [place] heart Associated angina: with unspecified angina Qualified Code(s): I25.119 - Atherosclerotic heart disease of [place] coronary artery with unspecified angina pectoris Disposition: OP ADMIT IP TO THIS HOSP Is pt being admited?: Yes Condition: Fair Time of Disposition: 01:55
--- NOTE | 2020-07-28 00:43 | XRay Report ---
XR forearm RT INDICATION / CLINICAL INFORMATION: right forearm pain. COMPARISON: None available. FINDINGS: No acute fracture. Normal alignment. Joint spaces are preserved. No destructive osseous lesion or s uspicious periosteal reaction. Impression: 1.No acute fracture. Signer Name: Simone Nieves MD Signed: 07/28/2020 12:38 AM Workstation Name: [id number]
--- NOTE | 2020-07-28 00:44 | XRay Report ---
XR chest 1V ap INDICATION / CLINICAL INFORMATION: CP COMPARISON: 07/20/2020 FINDINGS: SUPPORT DEVICES: None. HEART / MEDIASTINUM: No significant abnormality. LUNGS / PLEURA: Lungs are clear. Costophrenic sulci are sharp. No pneumothorax. ADDITIONAL FINDINGS: Elevated left hemidiaphragm. IMPRESSION: 1. No acute findings. Signer Name: Simone Nieves MD Signed: 07/28/2020 12:39 AM Workstation Name: [id number]
[2020-07-28 00:57] LABS: Basophils # (Auto) 0.1 K/mm3 (0.0-0.1); Basophils % (Auto) 0.6 % (0.0-1.8); Eosinophils # (Auto) 0.3 K/mm3 (0.0-0.4); Eosinophils % (Auto) 2.8 % (0.0-4.3); Hematocrit 42.8 % (30.3-42.9); Hemoglobin 14.7 gm/dl (10.1-14.3); Lymphocytes # (Auto) 1.5 K/mm3 (1.2-5.4); Lymphocytes % (Auto) 15.4 % (13.4-35.0); Mean Corpuscular HGB Conc 34 % (30-34); Mean Corpuscular Volume 86 fl (79-97); Monocytes # (Auto) 0.8 K/mm3 (0.0-0.8); Monocytes % (Auto) 8.2 % (0.0-7.3); Platelet Count 237 K/mm3 (140-440); Red Blood Count 4.97 M/mm3 (3.65-5.03); Red Cell Distribution Width 12.6 % (13.2-15.2)
[2020-07-28 01:02] LABS: Alanine Aminotransferase 15 units/L (7-56); Albumin 4.3 g/dL (3.9-5); Blood Urea Nitrogen 19 mg/dL (7-17); Calcium 9.2 mg/dL (8.4-10.2); Hemolysis Index 5
[2020-07-28 01:03] LABS: BUN/Creatinine Ratio 27
[2020-07-28] MEDS ORDERED: SODIUM CHLORIDE 0.9% 1000 ML 1,000 ML IV ONE (01:09)
[2020-07-28 01:17] LABS: INR 0.95 (0.87-1.13); Partial Thromboplastin Time 27.9 Sec. (24.2-36.6)
[2020-07-28] MEDS ORDERED: MORPHINE 4 MG/1 ML INJ IV ONE (02:08)
--- NOTE | 2020-07-28 02:18 | History and Physical Report ---
History of Present Illness Date of examination: 07/27/20 Date of admission: 07/27/20 Chief complaint: Chest pain History of present illness: This is a 49-year-old female presents to the emergency department with a complaint of left upper chest pain and shortness of breath that has been going on intermittently over the past 3 to 4 weeks. Patient has had multiple visits to this emergency department and this hospital for chest pain. On 06/23/2020 the patient had a stress test that was negative for any ischemic changes. The next day, the patient had a cardiac catheterization that showed a 90% blockage of the distal RCA and was given a drug-eluting stent. Initially, after the catheterization, the patient began feeling improved. However, about 1 week later the patient began having the aforementioned symptoms again. Currently her pain is 4 out of 10 in intensity. It worsens with any exertion. She has a past medical history of asthma, sarcoidosis, coronary artery disease. Patient says "my mom from CAD." She denies any tobacco or illicit drug use. Secondarily, the patient complains of a area of bruising and swelling to the right forearm. She is unsure whether or not she may have hit her arm on something. She is currently on aspirin and Brilinta. ED work-up showed WBC 9.4, hemoglobin 14.7, platelets 237, sodium 139, potassium 4.0, Creatinine 0.7 and glucose 101. X-ray of the right forearm showed no acute finding. Chest x-ray no acute finding Patient seen in the ED at bedside alert and oriented x3 patient reports chest chest pain and shortness of breath that has been ongoing. The patient medical record she has multiple visits to emergency department for similar symptoms. stress test was done in one of the visit and it was negative. Troponin showed no acute finding. Patient reported that she feels unusual and wanted to be evaluated. Patient not in acute distress at the time of this assessment. I reviewed the labs vital signs and medication record. Past History Past Medical History: diabetes, hypertension, hyperlipidemia Past Surgical History: No surgical history Social history: no significant social history Family history: no significant family history Medications and Allergies Allergies Allergy/AdvReac Type Severity Reaction Status Date / Time promethazine [From Phenergan] Allergy Hives Verified 07/20/20 00:24 sulfamethoxazole Allergy Itching Verified 10/19/17 01:48 [From Bactrim] trimethoprim [From Bactrim] Allergy Itching Verified 10/19/17 01:48 Home Medications Medication Instructions Recorded Confirmed Last Taken Type Albuterol Sulfate [Proventil Hfa] 6.7 gm IH Q6HR PRN #1 hfa.aer.ad 10/20/17 07/28/20 Unknown Rx Aspirin EC [Halfprin EC] 81 mg PO QDAY #30 tablet. 06/25/20 07/28/20 07/02/20 Rx AtorvaSTATin [Lipitor] 40 mg PO QHS #30 tablet 06/25/20 07/28/20 07/02/20 Rx Ticagrelor [Brilinta] 90 mg PO BID #60 tablet 06/25/20 07/28/20 07/02/20 Rx lisinopriL [Zestril TAB] 5 mg PO QDAY #30 tablet 06/25/20 07/28/20 07/02/20 Rx Metoprolol [Lopressor TAB] 12.5 mg PO BID 07/28/20 07/28/20 Unknown History Active Meds: Active Medications Sodium Chloride (Nacl 0.9% 1000 Ml) 1,000 mls @ 125 mls/hr IV ONCE ONE Stop: 07/28/20 09:08 Last Admin: 07/28/20 02:01 Dose: 125 mls/hr Documented by: Review of Systems Constitutional: no weakness Ears, nose, mouth and throat: no epistaxis, no dysphagia Breasts: no mass Cardiovascular: chest pain, high blood pressure Gastrointestinal: no abdominal pain Genitourinary Female: no stress incontinence Musculoskeletal: no neck stiffness Integumentary: no rash, no pruritis Neurological: no head injury Psychiatric: no suicidal ideation, no disorientation Endocrine: no polydipsia Hematologic/Lymphatic: no easy bruising Allergic/Immunologic: no urticaria Exam - Constitutional Vitals: Temp Pulse Resp BP Pulse Ox 98.1 F 93 H 16 121/77 98 07/27/20 23:22 07/28/20 02:05 07/28/20 02:11 07/28/20 00:00 07/28/20 02:05 General appearance: Present: mild distress, well-nourished - EENT Eyes: Present: PERRL ENT: hearing intact, clear oral mucosa - Neck Neck: Present: supple, normal ROM - Respiratory Respiratory effort: normal Respiratory: bilateral: CTA - Cardiovascular Heart Sounds: Present: S1 & S2. Absent: rub, click - Extremities Extremities: pulses symmetrical, No edema Peripheral Pulses: within normal limits - Abdominal General gastrointestinal: Present: soft, non-tender, non-distended, normal bowel sounds Female genitourinary: Present: normal - Integumentary Integumentary: Present: clear, warm, dry - Musculoskeletal Musculoskeletal: gait normal, strength equal bilaterally - Psychiatric Psychiatric: appropriate mood/affect, intact judgment & insight, cooperative - Neurologic Neurologic: CNII-XII intact, moves all extremities - Allied Health Allied health notes reviewed: nursing HEART Score - HEART Score Troponin: Troponin T < 0.010 ng/mL (0.00-0.029) 07/28/20 00:05 Results - Labs CBC & Chem 7: 07/28/20 00:05 07/28/20 00:05 Labs: Abnormal lab results 07/28/20 07/28/20 Range/Units 00:05 00:05 Hgb 14.7 H (10.1-14.3) gm/dl RDW 12.6 L (13.2-15.2) % [place] % (Auto) 8.2 H (0.0-7.3) % Seg Neutrophils % 73.0 H (40.0-70.0) % BUN 19 H (7-17) mg/dL Glucose 101 H (65-100) mg/dL Assessment and Plan - Patient Problems (1) Chest pain Current Visit: Yes Status: Acute Qualifiers: Chest pain type: unspecified Qualified Code(s): R07.9 - Chest pain, unspecified Plan to address problem: continue cardioprotective messures ASA, statin, and oxygen supplement prn Status post stress test with no acute finding. Troponin negative (2) HTN (hypertension) Current Visit: No Status: Chronic Plan to address problem: Monitor blood pressure Resume home blood pressure medicine As needed hydralazine (3) Nausea alone Current Visit: No Status: Acute Plan to address problem: PRN anti-emetic (4) CAD (coronary artery disease) Current Visit: Yes Status: Chronic Qualifiers: Coronary Disease-Associated Artery/Lesion type: unspecified vessel or lesion type [place] vs. transplanted heart: [place] heart Associated angina: with unspecified angina Qualified Code(s): I25.119 - Atherosclerotic heart disease of [place] coronary artery with unspecified angina pectoris Plan to address problem: Resume home statin (5) GERD (gastroesophageal reflux disease) Current Visit: No Status: Acute Plan to address problem: Continue PPI (6) DVT prophylaxis Current Visit: No Status: Acute Plan to address problem: Subcutaneous Lovenox
[2020-07-28] MEDS ORDERED: ONDANSETRON 4 MG/2 ML INJ IV ONE (03:04)
[2020-07-28] MEDS ORDERED: SODIUM CHLORIDE 0.9% 250ML 250 ML IV ONE (05:13)
[2020-07-28] MEDS ORDERED: hydrALAZINE 20 MG/1 ML INJ IV PRN (06:33)
[2020-07-28] MEDS ORDERED: traZODone 50 MG TAB PO PRN (06:36)
[2020-07-28] MEDS ORDERED: NITROGLYCERIN 0.4 MG TAB SUBL SL PRN (06:40)
[2020-07-28] MEDS ORDERED: LISINOPRIL 40 MG TAB PO SCH (10:00)
[2020-07-28] MEDS ORDERED: ASPIRIN EC 81 MG TAB PO SCH (10:00)
[2020-07-28] MEDS ORDERED: SODIUM CHLORIDE 0.9% 500 ML 500 ML IV SCH (11:00)
--- NOTE | 2020-07-28 12:04 | Consultation ---
History of Present Illness Consult date: 07/28/20 Requesting physician: BRISEIDA ORTEGA Consult reason: chest pain History of present illness: The pt is a 49 YO Female with a past medical history of CAD s/p PCI of distal left circ on 06/24/2020, reported pulmonary sarcoidosis, asthma, HTN, and anxiety. She established care with Dr. Rosenberg on a recent hospitalization here at [facility] (discharged 06/25/2020). She presents to [facility] c/o CP x 3-4 weeks. Pt describes her chest pain as a constant left-sided pressure. Pt denies any SOB, palpitations, vomiting, diaphoresis, dizziness or syncope. Pt reports full compliance with her home medication regimen, including ASA and brilinta. Pt was discharged from [facility] on 06/25/2020 following eval/management of chest pain. She underwent treadmill MPI stress test which showed good exercise tolerance, nuclear imaging negative for ischemia, normal EF. However, pt c/o persistent chest pain and thus LHC was recommended. 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 tte done 06/23/2020 showed EF 50-55%, no significant abnormalities. Past History Past Medical History: diabetes, hypertension, hyperlipidemia Past Surgical History: No surgical history Social history: no significant social history Family history: no significant family history Medications and Allergies Allergies Allergy/AdvReac Type Severity Reaction Status Date / Time promethazine [From Phenergan] Allergy Hives Verified 07/20/20 00:24 sulfamethoxazole Allergy Itching Verified 10/19/17 01:48 [From Bactrim] trimethoprim [From Bactrim] Allergy Itching Verified 10/19/17 01:48 Home Medications Medication Instructions Recorded Confirmed Last Taken Type Albuterol Sulfate [Proventil Hfa] 6.7 gm IH Q6HR PRN #1 hfa.aer.ad 10/20/17 07/28/20 Unknown Rx Aspirin EC [Halfprin EC] 81 mg PO QDAY #30 tablet. 06/25/20 07/28/20 07/02/20 Rx AtorvaSTATin [Lipitor] 40 mg PO QHS #30 tablet 06/25/20 07/28/20 07/02/20 Rx Ticagrelor [Brilinta] 90 mg PO BID #60 tablet 06/25/20 07/28/20 07/02/20 Rx lisinopriL [Zestril TAB] 5 mg PO QDAY #30 tablet 06/25/20 07/28/20 07/02/20 Rx Metoprolol [Lopressor TAB] 12.5 mg PO BID 07/28/20 07/28/20 Unknown History Active Meds: Active Medications Aspirin (Aspirin Ec 81 Mg Tab) 81 mg PO QDAY JAMIL Atorvastatin Calcium (Atorvastatin 40 Mg Tab) 40 mg PO QHS JAMIL Enoxaparin Sodium (Enoxaparin 40 Mg/0.4 Ml Inj) 40 mg SUB-Q QDAY@2200 JAMIL; Protocol Hydralazine HCl (Hydralazine 20 Mg/1 Ml Inj) 5 mg IV Q4HR PRN PRN Reason: Hypertension Sodium Chloride (Nacl 0.9% 500 Ml) 500 mls @ 50 mls/hr IV DIRECT JAMIL Stop: 07/28/20 20:59 Isosorbide Mononitrate (Isosorbide Mononitrate Er 30 Mg Tab) 30 mg PO QDAY JAMIL Lisinopril (Lisinopril 5 Mg Tab) 5 mg PO QDAY JAMIL Metoprolol Tartrate (Metoprolol Tartrate 25 Mg Tab) 12.5 mg PO BID [facility] Nitroglycerin (Nitroglycerin 0.4 Mg Tab Subl) 0.4 mg SL .Q5MIN PRN PRN Reason: Chest Pain Ranolazine (Ranolazine Er 500 Mg Tab 12hr) 500 mg PO BID JAMIL Ticagrelor (Ticagrelor 90 Mg Tab) 90 mg PO BID JAMIL Tramadol HCl (Tramadol 50 Mg Tab) 50 mg PO Q4H PRN PRN Reason: Pain, Moderate (4-6) Trazodone HCl (Trazodone 50 Mg Tab) 50 mg PO QHS PRN PRN Reason: Insomnia Review of Systems Constitutional: no weight loss, no weight gain, no fever, no chills, no sweats Ears, nose, mouth and throat: no ear pain, no ear discharge, no decreased hearing, no nose pain, no nasal congestion, no nasal discharge Cardiovascular: chest pain, no orthopnea, no palpitations, no rapid/irregular heart beat, no edema, no syncope, no lightheadedness, no shortness of breath Respiratory: no cough, no hemoptysis, no shortness of breath, no dyspnea on exertion Gastrointestinal: no abdominal pain Genitourinary Female: no pelvic pain, no flank pain Musculoskeletal: no neck stiffness, no neck pain, no shooting arm pain, no arm numbness/tingling, no low back pain, no shooting leg pain Integumentary: no rash, no pruritis, no redness, no sores, no wounds Neurological: no head injury, no paralysis, no weakness, no parathesias, no numbness, no tingling, no seizures, no syncope Psychiatric: anxiety Endocrine: no cold intolerance, no heat intolerance Hematologic/Lymphatic: no easy bruising, no easy bleeding Allergic/Immunologic: no urticaria Physical Examination Last Vital Signs Temp 97.8 F 07/28/20 08:43 Pulse 80 07/28/20 10:44 Resp 16 07/28/20 08:01 BP 110/69 07/28/20 10:44 Pulse Ox 96 07/28/20 08:35 General appearance: no acute distress HEENT: Positive: PERRL, Normocephaly, Mucus Membranes Moist Neck: Positive: neck supple, trachea midline Cardiac: Positive: Reg Rate and Rhythm, S1/S2 Lungs: Positive: Normal Breath Sounds Neuro: Positive: Grossly Intact Abdomen: Positive: Unremarkable Skin: Negative: Rash, Wound Extremities: Present: upper extr. pulses, lower extr. pulses. Absent: edema Results 07/28/20 00:05 07/28/20 00:05 Cardiac Enzymes 07/28/20 Range/Units 00:05 AST 14 (5-40) units/L Coagulation 07/28/20 Range/Units 00:05 PT 12.6 (12.2-14.9) Sec. INR 0.95 (0.87-1.13) APTT 27.9 (24.2-36.6) Sec. CBC 07/28/20 Range/Units 00:05 WBC 9.4 (4.5-11.0) K/mm3 RBC 4.97 (3.65-5.03) M/mm3 Hgb 14.7 H (10.1-14.3) gm/dl Hct 42.8 (30.3-42.9) % Plt Count 237 (140-440) K/mm3 Lymph # (Auto) 1.5 (1.2-5.4) K/mm3 [place] # (Auto) 0.8 (0.0-0.8) K/mm3 Eos # (Auto) 0.3 (0.0-0.4) K/mm3 Baso # (Auto) 0.1 (0.0-0.1) K/mm3 Comprehensive Metabolic Panel 07/28/20 Range/Units 00:05 Sodium 139 (137-145) mmol/L Potassium 4.0 (3.6-5.0) mmol/L Chloride 104.2 (98-107) mmol/L Carbon Dioxide 22 (22-30) mmol/L BUN 19 H (7-17) mg/dL Creatinine 0.7 (0.6-1.2) mg/dL Glucose 101 H (65-100) mg/dL Calcium 9.2 (8.4-10.2) mg/dL AST 14 (5-40) units/L ALT 15 (7-56) units/L Alkaline Phosphatase 83 (35-129) units/L Total Protein 7.4 (6.3-8.2) g/dL Albumin 4.3 (3.9-5) g/dL - Imaging and Cardiology Echo: report reviewed (tte done 06/23/2020 showed EF 50-55%, no significant abnormalities. 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 tte done 06/23/2020 showed EF 50-55%, no significant abnormalities. ECG with NAF, Edy negative for AMI x 2 sets. Suspect CP is noncardiac, could be related to anxiety. Will optimize anti ischemic regimen. Consider addition of anti inflammatory regimen per primary. Coronary Angiography offered for definitive dx and pt wishes to proceed with repeat LHC in AM. NPO after midnight. The patient has been seen in conjunction with Dr. Burrell who agrees with the assessment and plan of care. - Patient Problems (1) Chest pain Current Visit: Yes Status: Acute Qualifiers: Chest pain type: unspecified Qualified Code(s): R07.9 - Chest pain, unspecified (2) CAD (coronary artery disease) Current Visit: Yes Status: Chronic Qualifiers: Coronary Disease-Associated Artery/Lesion type: unspecified vessel or lesion type [place] vs. transplanted heart: [place] heart Associated angina: angina presence unspecified Qualified Code(s): I25.10 - Atherosclerotic heart disease of [place] coronary artery without angina pectoris (3) Stented coronary artery Current Visit: Yes Status: Chronic (4) HTN (hypertension) Current Visit: Yes Status: Chronic (5) History of sarcoidosis Current Visit: Yes Status: Chronic Plan to address problem: reported pulmonary sarcoidosis per pt (6) Asthma Current Visit: Yes Status: Chronic (7) LUKE (obstructive sleep apnea) Current Visit: Yes Status: Chronic (8) Anxiety Current Visit: Yes Status: Chronic
--- NOTE | 2020-07-28 13:04 | Event Note ---
Date: 07/28/20 Patient seen and examined no acute pathology imaging studies reviewed remains clinically stable discussed with plant engineering supervisor plan for cardiac cath in a.m. In the meantime we will place patient on NSAIDs
[2020-07-28] MEDS: TICAGRELOR 90 MG TAB PO SCH ×2 (13:31→22:36)
[2020-07-28] MEDS: traMADol 50 MG TAB PO PRN ×2 (18:09→22:36)
[2020-07-28] MEDS ORDERED: ENOXAPARIN 40 MG/0.4 ML INJ SUB-Q SCH (22:00)
[2020-07-28] MEDS: METOPROLOL TARTRATE 25 MG TAB PO SCH (22:34)
[2020-07-28] MEDS: RANOLAZINE ER 500 MG TAB 12HR PO SCH (22:35)
[2020-07-29] MEDS: ONDANSETRON 4 MG/2 ML INJ IV PRN ×2 (01:46→11:26)
[2020-07-29 05:33] LABS: Hematocrit 37.8 % (30.3-42.9); Hemoglobin 12.9 gm/dl (10.1-14.3); Mean Corpuscular HGB Conc 34 % (30-34); Mean Corpuscular Volume 88 fl (79-97); Platelet Count 193 K/mm3 (140-440); Red Blood Count 4.33 M/mm3 (3.65-5.03); Red Cell Distribution Width 12.9 % (13.2-15.2)
[2020-07-29 05:39] LABS: Blood Urea Nitrogen 16 mg/dL (7-17); Calcium 8.9 mg/dL (8.4-10.2); Hemolysis Index 4; INR 1.07 (0.87-1.13)
[2020-07-29 05:56] LABS: BUN/Creatinine Ratio 23
[2020-07-29] MEDS ORDERED: SODIUM CHLORIDE 0.9% 500 ML 500 ML ONE (06:59)
[2020-07-29] MEDS ORDERED: TICAGRELOR 90 MG TAB ONE (07:23)
[2020-07-29] MEDS ORDERED: ASPIRIN EC 81 MG TAB PO ONE (07:25)
[2020-07-29] MEDS: TICAGRELOR 90 MG TAB PO SCH (07:27)
[2020-07-29] MEDS ORDERED: SODIUM CHLORIDE 0.9% 500 ML 500 ML IV SCH (08:00)
[2020-07-29] MEDS ORDERED: MIDAZOLAM 2 MG/2 ML INJ ONE (08:01)
[2020-07-29] MEDS ORDERED: HEPARIN/NS 5000 UNIT/500ML 1,000 ML IR ONE (08:01)
[2020-07-29] MEDS ORDERED: fentaNYL 100 MCG/2 ML INJ ONE (08:01)
[2020-07-29] MEDS ORDERED: LIDOCAINE (2%) 20 MG/1 ML VIAL 20 ML MDV INFILTRATI ONE (08:02)
[2020-07-29] MEDS ORDERED: VERAPAMIL 5 MG/2 ML INJ ONE (08:02)
[2020-07-29] MEDS: NITROGLYCERIN SYRINGE 3 ML ONE ×2 (08:40→08:41)
[2020-07-29] MEDS: HEPARIN 10,000 UNITS/10 ML VIAL ONE ×2 (08:40→08:41)
--- NOTE | 2020-07-29 09:18 | Progress Note ---
Assessment and Plan patent distal lcx stent, non dominant rca lesion and small om1 lesion, treat medically with imdur and ranexa and followup with dr weir in the office, pt is walking without sob or chest pain. - Patient Problems (1) Hyperlipemia, mixed Current Visit: Yes Status: Chronic (2) Chest pain Current Visit: Yes Status: Acute Qualifiers: Chest pain type: unspecified Qualified Code(s): R07.9 - Chest pain, unspecified (3) CAD (coronary artery disease) Current Visit: Yes Status: Chronic Qualifiers: Coronary Disease-Associated Artery/Lesion type: unspecified vessel or lesion type [place] vs. transplanted heart: [place] heart Associated angina: with unspecified angina Qualified Code(s): I25.119 - Atherosclerotic heart disease of [place] coronary artery with unspecified angina pectoris (4) Anxiety Current Visit: No Status: Chronic (5) HTN (hypertension) Current Visit: No Status: Chronic (6) History of sarcoidosis Current Visit: No Status: Chronic Subjective Date of service: 07/29/20 Principal diagnosis: cp Interval history: pt has some chest pain at times Objective Vital Signs Temp Pulse Resp Resp BP BP Pulse Ox 07/29/20 06:41 73 132/63 07/29/20 05:00 97.7 F 65 18 87/57 96 07/29/20 02:00 70 07/29/20 00:31 135/84 98 07/29/20 00:22 98.1 F 67 16 87/51 94 07/28/20 23:42 122/67 90 07/28/20 23:30 122/67 92 07/28/20 23:28 122/67 93 07/28/20 22:51 122/67 98 07/28/20 22:41 122/67 97 07/28/20 22:34 78 123/80 07/28/20 22:31 122/67 96 07/28/20 22:21 122/67 98 07/28/20 22:11 122/67 98 07/28/20 22:01 122/67 98 07/28/20 21:51 122/67 99 07/28/20 21:41 122/67 98 07/28/20 21:31 122/67 99 07/28/20 21:21 122/67 99 07/28/20 21:11 122/67 99 07/28/20 21:01 139/74 98 07/28/20 21:00 20 07/28/20 20:51 139/74 99 07/28/20 20:41 139/74 98 07/28/20 20:31 139/74 98 07/28/20 20:21 99 07/28/20 20:10 139/74 100 07/28/20 20:01 139/74 100 07/28/20 19:53 97.7 F 78 18 139/74 123/80 99 07/28/20 19:51 139/74 99 07/28/20 19:46 139/74 100 07/28/20 19:40 139/74 97 07/28/20 19:31 139/74 100 07/28/20 19:21 139/74 100 07/28/20 19:11 126/51 100 07/28/20 19:01 155/89 100 07/28/20 18:51 141/85 99 07/28/20 18:41 141/85 99 07/28/20 18:31 141/85 100 07/28/20 16:41 77 14 92/66 96 07/28/20 16:31 65 17 126/51 94 07/28/20 16:21 67 16 124/49 96 07/28/20 16:11 65 18 124/49 97 07/28/20 16:01 64 16 124/49 94 07/28/20 15:51 64 22 124/49 97 07/28/20 15:40 64 23 127/49 93 07/28/20 15:31 64 21 127/49 96 07/28/20 15:21 63 12 128/51 97 07/28/20 15:11 64 20 128/51 98 07/28/20 15:01 64 12 102/44 96 07/28/20 14:51 57 L 18 102/44 95 07/28/20 14:41 60 15 107/44 96 07/28/20 14:31 60 16 107/44 94 07/28/20 14:21 59 L 16 123/70 94 07/28/20 14:11 61 20 123/70 93 07/28/20 14:01 64 17 123/70 95 07/28/20 13:51 65 19 123/70 96 07/28/20 13:44 123/70 07/28/20 12:30 147/63 100 03/16/21 12:21 147/63 98 07/28/20 12:11 136/59 98 07/28/20 12:01 136/59 97 07/28/20 11:51 136/59 97 07/28/20 11:41 129/59 98 07/28/20 11:31 129/59 98 07/28/20 11:21 129/59 98 07/28/20 11:11 132/64 99 07/28/20 11:01 132/64 100 07/28/20 10:54 122/74 100 07/28/20 10:44 80 110/69 07/28/20 10:41 132/64 98 07/28/20 10:31 132/64 100 07/28/20 10:21 132/64 100 07/28/20 10:11 122/74 100 07/28/20 10:01 122/74 99 07/28/20 10:00 86 07/28/20 09:51 101/73 99 07/28/20 09:41 122/74 99 07/28/20 09:31 122/74 98 - Physical Examination General: Appears Well HEENT: Positive: PERRL, Normocephaly, Mucus Membranes Moist Neck: Positive: neck supple, trachea midline Cardiac: Positive: Reg Rate and Rhythm Lungs: Positive: clear to auscultation Neuro: Positive: Grossly Intact Abdomen: Positive: Unremarkable Skin: Negative: Rash, Wound Extremities: Present: upper extr. pulses, lower extr. pulses. Absent: edema - Labs and Meds Coagulation 07/29/20 Range/Units 04:51 PT 13.8 (12.2-14.9) Sec. INR 1.07 (0.87-1.13) CBC 07/29/20 Range/Units 04:51 WBC 7.6 (4.5-11.0) K/mm3 RBC 4.33 (3.65-5.03) M/mm3 Hgb 12.9 (10.1-14.3) gm/dl Hct 37.8 (30.3-42.9) % Plt Count 193 (140-440) K/mm3 Comprehensive Metabolic Panel 07/29/20 Range/Units 04:51 Sodium 138 (137-145) mmol/L Potassium 4.5 (3.6-5.0) mmol/L Chloride 105.3 (98-107) mmol/L Carbon Dioxide 23 (22-30) mmol/L BUN 16 (7-17) mg/dL Creatinine 0.7 (0.6-1.2) mg/dL Glucose 98 (65-100) mg/dL Calcium 8.9 (8.4-10.2) mg/dL - Imaging and Cardiology EKG: report reviewed, image reviewed Echo: report reviewed (tte done 06/23/2020 showed EF 50-55%, no significant abnorm alities. ) Cardiac cath: report reviewed (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
[2020-07-29] MEDS ORDERED: traMADol 50 MG TAB PO PRN (09:30)
[2020-07-29] MEDS ORDERED: HYDROcodone/ACETAMINOPHEN 5-325 MG TAB PO PRN (09:30)
--- NOTE | 2020-07-29 09:40 | Cardiac Catherization Report ---
LEFT HEART CATHETERIZATION CLINICAL INFORMATION: This is a 49-year-old female with history of PCI last month of the LPDA with left dominant system with 2.75 drug-eluting stent, presents with recurrent chest pain, negative enzymes, here for left heart catheterization. The patient was done with moderate sedation started at 8:36, finished at 8:52, with 60 minutes of moderate sedation. PROCEDURE FINDINGS: Procedure was done via the right radial artery, sterile technique, local anesthesia, 6-[place]izen [place] radial sheath inserted. Left system engaged with JL3.5 catheter. Left main is large and patent, bifurcates into medium caliber LAD that is patent, but the mid to distal becomes a small caliber vessel, patent. Diagonal 1 is a afvvd-yf-cryapy caliber vessel is patent. Circumflex is a large dominant vessel is patent. OM1 proximal is patent and bifurcates in upper branch that is a small-to- medium caliber, patent. Lower branch a small caliber vessel, less than 2.5 mm with a proximal 60% lesion. No change from last catheterization. OM2 is niqbb-uy-iqxemo caliber vessel, patent. LPDA stent is widely patent, dmdyg-qc-qpgoqt caliber and patent. RCA engaged with JR4 catheter, it is a nondominant vessel, joqlt-lz-edsnxq caliber vessel, proximal 95% lesion right at a conus branch and a left atrial branch. This is a nondominant vessel with normal LV function, EF 55-60%., LVEDP is 18 mmHg, LV is 136. Aortic is 130/72. No gradient across the aortic valve on pullback. 5-[place]izen [place] catheters all taken over guidewire, 6-[place] radial sheath was discontinued. Radial band applied. No hematoma, no bleeding. SUMMARY: Left main patent, LAD patent, mid to distal small caliber diagonal 1 patent, circumflex patent, OM1 upper branch, patent. OM1 lower branch has a 60% lesion. OM2 patent. LPDA stent patent. RCA is nondominant, has a proximal 95% lesion. Treat medically. Discussed this in detail with the patient and the patient's family. JOB# [id number] REJI/ISABEL
[2020-07-29] MEDS ORDERED: ASPIRIN EC 81 MG TAB PO SCH (10:00)
[2020-07-29] MEDS ORDERED: LISINOPRIL 5 MG TAB PO SCH (10:00)
--- NOTE | 2020-07-29 10:28 | Discharge Summary ---
Providers - Providers Date of Admission: 07/28/20 01:55 Attending physician: LUCINDA DAVIS MD 07/28/20 06:39 Consult to Physician [CONS] Routine Comment: Consulting Provider: YAMILETH WINSTON Physician Instructions: Reason For Exam: chest pain 07/29/20 09:14 Consult to Cardiac Rehabilitation [CONS] Routine Reason For Exam: Cardiac Rehab Evaluation Primary care physician: JL SHIN Hospitalization Reason for admission: Chest pain Condition: Stable Hospital course: This is a 49-year-old female presents to the emergency department with a complaint of left upper chest pain and shortness of breath that has been going on intermittently over the past 3 to 4 weeks. Patient has had multiple visits to this emergency department and this hospital for chest pain. On 06/23/2020 the patient had a stress test that was negative for any ischemic changes. The next day, the patient had a cardiac catheterization that showed a 90% blockage of the distal RCA and was given a drug-eluting stent. Initially, after the catheterization, the patient began feeling improved. However, about 1 week later the patient began having the aforementioned symptoms again. Currently her pain is 4 out of 10 in intensity. It worsens with any exertion. She has a past medical history of asthma, sarcoidosis, coronary artery disease. Patient says "my mom from CAD." She denies any tobacco or illicit drug use. Secondarily, the patient complains of a area of bruising and swelling to the right forearm. She is unsure whether or not she may have hit her arm on something. She is currently on aspirin and Brilinta. ED work-up showed WBC 9.4, hemoglobin 14.7, platelets 237, sodium 139, potassium 4.0, Creatinine 0.7 and glucose 101. X-ray of the right forearm showed no acute finding. Chest x-ray no acute finding Patient seen in the ED at bedside alert and oriented x3 patient reports chest chest pain and shortness of breath that has been ongoing. The patient medical record she has multiple visits to emergency department for similar symptoms. stress test was done in one of the visit and it was negative. Troponin showed no acute finding. Patient reported that she feels unusual and wanted to be evaluated. Patient not in acute distress at the time of this assessment. I reviewed the labs vital signs and medication record. Patient was seen and evaluated by cardiology and underwent cardiac catheterization this morning patent distal lcx stent, non dominant rca lesion and small om1 lesion, treat medically with imdur and ranexa and followup with dr glynn in the office, pt is walking without sob or chest pain. tte done 06/23/2020 showed EF 50-55%, no significant abnormalities. ECG with NAF, Edy negative for AMI x 2 sets. Suspect CP is noncardiac, could be related to anxiety. Will optimize anti ischemic regimen. C On discharge the patient was discharged on tramadol, also on isosorbide mono nitrate and Ranexa. If pain continues will recommend an anti-inflammatory and follow-up with dairy nutritionist. - Patient Problems (1) Stented coronary artery Current Visit: Yes Status: Chronic (2) History of sarcoidosis Current Visit: Yes Status: Chronic Plan to address problem: reported pulmonary sarcoidosis per pt (3) Asthma Current Visit: Yes Status: Chronic (4) LUKE (obstructive sleep apnea) Current Visit: Yes Status: Chronic (5) Hyperlipemia, mixed Current Visit: Yes Status: Chronic (6)atypical Chest pain- costochondritis Current Visit: Yes Status: Acute Qualifiers: Chest pain type: unspecified Qualified Code(s): R07.9 - Chest pain, unspecified (7) CAD (coronary artery disease) Current Visit: Yes Status: Chronic Qualifiers: Coronary Disease-Associated Artery/Lesion type: unspecified vessel or lesion type [place] vs. transplanted heart: [place] heart Associated angina: with unspecified angina Qualified Code(s): I25.119 - Atherosclerotic heart disease of [place] coronary artery with unspecified angina pectoris (8) Anxiety Current Visit: No Status: Chronic (9) HTN (hypertension) Current Visit: No Status: Chronic (10) History of sarcoidosis Current Visit: No Status: Chronic Disposition: DC-01 TO HOME OR SELFCARE Final Discharge Diagnosis (Prints w/discharge instructions): Atypical chest pain secondary to costochondritis in the setting of coronary artery disease Time spent for discharge: 35 minutes Core Measure Documentation - Palliative Care Palliative Care/ Comfort Measures: Not Applicable - Core Measures Any of the following diagnoses?: none Exam - Physical Exam Narrative exam: VITAL SIGNS: Reviewed. GENERAL: The patient appears normally developed, Vital signs as documented. HEAD: No signs of head trauma. EYES: Pupils are equal. Extraocular motions intact. EARS: Hearing grossly intact. MOUTH: Oropharynx is normal. NECK: No adenopathy, no JVD. CHEST: Chest with clear breath sounds bilaterally. No wheezes, rales, or rhonchi. CARDIAC: Regular rate and rhythm. S1 and S2, without murmurs, gallops, or ru bs. VASCULAR: No Edema. Peripheral pulses normal and equal in all extremities. ABDOMEN: Soft, non tender and non distended. No rebound or guarding, and no masses palpated. Bowel Sounds normal. MUSCULOSKELETAL: Good range of motion of all major joints. Extremities without clubbing, cyanosis or edema. NEUROLOGIC EXAM: Alert and oriented x 3 No focal sensory or strength deficits. Speech normal. Follows commands. PSYCHIATRIC: Mood normal. SKIN: Some mild upper extremity blanching of the right detail exam as documented in skin assessment - Constitutional Vitals: Temp Pulse Resp BP Pulse Ox 97.9 F 78 18 113/62 97 07/29/20 09:33 07/29/20 09:33 07/29/20 09:33 07/29/20 09:33 07/29/20 09:33 Plan Activity: advance as tolerated, fall precautions Diet: low fat Special Instructions: record daily weights, record daily BP diary Follow up with: JL SHIN MD [Primary Care Provider] - 3-5 Days GEOVANNA GLYNN MD [Staff Physician] - 7 Days Prescriptions: ISOSORBIDE MONOnitrate [Imdur ER] 30 mg PO QDAY #30 tablet Ranolazine ER [Ranexa ER] 500 mg PO BID #60 tablet traMADoL [Ultram 50 MG tab] 50 mg PO Q4H PRN #14 tablet PRN Reason: Pain, Moderate (4-6)
[2020-07-29] MEDS: METOPROLOL TARTRATE 25 MG TAB PO SCH (11:02)
[2020-07-29] MEDS: RANOLAZINE ER 500 MG TAB 12HR PO SCH (11:03)
[2020-07-29 12:10] VITALS: BP 104/64
== END 2020-07-29 14:08 | disposition home or self-care (01) ==
LOC: ED 23:14 → 4A 07-28 01:55
PROVIDERS: ADMIT Internal Medicine Geriatric Medicine; ATTEND Internal Medicine
DX: I25.119 Atherosclerotic heart disease of native coronary artery with unspecified angina pectoris (principal); R07.89 Other chest pain; I10 Essential (primary) hypertension; K21.9 Gastro-esophageal reflux disease without esophagitis; R11.10 Vomiting, unspecified; J45.909 Unspecified asthma, uncomplicated; F41.9 Anxiety disorder, unspecified; G47.33 Obstructive sleep apnea (adult) (pediatric); M19.90 Unspecified osteoarthritis, unspecified site; E11.9 Type 2 diabetes mellitus without complications; D86.9 Sarcoidosis, unspecified; Z79.82 Long term (current) use of aspirin; Z90.49 Acquired absence of other specified parts of digestive tract; Z90.710 Acquired absence of both cervix and uterus; Z95.1 Presence of aortocoronary bypass graft
CPT/HCPCS: 36415; 71045; 73090; 80048; 80053; 82962; 84484; 85025; 85027; 85379; 85610; 85730; 87116; 93005; 93458; 96361; 96372; 96374; 96375; 96376; 99285; A9270; C1894; G0378; J1644; J1650; J2250; J2270; J2405; J3010; J7030; J7040; J7050; Q9967

== ENCOUNTER 2020-08-13 00:25 | Emergency (ER) | payer SELFPAY ==
[2020-08-13 01:33] LABS: Basophils # (Auto) 0.1 K/mm3 (0.0-0.1); Basophils % (Auto) 0.9 % (0.0-1.8); Eosinophils # (Auto) 0.2 K/mm3 (0.0-0.4); Eosinophils % (Auto) 1.9 % (0.0-4.3); Hematocrit 44.3 % (30.3-42.9); Hemoglobin 15.1 gm/dl (10.1-14.3); Lymphocytes # (Auto) 1.9 K/mm3 (1.2-5.4); Lymphocytes % (Auto) 20.2 % (13.4-35.0); Mean Corpuscular HGB Conc 34 % (30-34); Mean Corpuscular Volume 88 fl (79-97); Monocytes # (Auto) 0.8 K/mm3 (0.0-0.8); Monocytes % (Auto) 8.8 % (0.0-7.3); Platelet Count 260 K/mm3 (140-440); Red Blood Count 5.05 M/mm3 (3.65-5.03); Red Cell Distribution Width 12.9 % (13.2-15.2)
[2020-08-13 01:47] LABS: Bilirubin,Urine NEG (Negative); Blood,Urine NEG (Negative); Calcium Oxalate Crystals,Urine 1+; Color,Urine Yellow (Yellow); Mucus,Urine FEW /HPF; Protein,Urine <15 mg/dL mg/dL (Negative); Urobilinogen,Urine < 2.0 mg/dL (<2.0); WBC,Urine < 1.0 /HPF (0.0-6.0)
[2020-08-13 01:51] LABS: Alanine Aminotransferase 19 units/L (7-56); Albumin 4.9 g/dL (3.9-5); Blood Urea Nitrogen 16 mg/dL (7-17); Calcium 9.5 mg/dL (8.4-10.2); Hemolysis Index 23
[2020-08-13 01:56] LABS: BUN/Creatinine Ratio 27
[2020-08-13] MEDS ORDERED: ONDANSETRON 4 MG ODT TAB PO STA (04:05)
--- NOTE | 2020-08-13 04:27 | Emergency Department Report ---
ED N/V/D HPI - General Chief complaint: Nausea/Vomiting/Diarrhea Stated complaint: EMESIS X2DAYS Time Seen by Provider: 08/13/20 03:13 Source: patient Mode of arrival: Ambulatory Limitations: No Limitations - History of Present Illness Initial comments: 41-year-old female presents emerged department complaining of 2-day history of nausea and vomiting, unknown etiology and again in the way of her taking a usual nighttime medications which prompted her to come to the ED for evaluation treatment options. She reports no foreign travel MD complaint: nausea -: Sudden Associated Abdominal Pain: No Location: diffuse Radiation: scalp Severity: mild Quality: aching Consistency: constant Improves with: none Worsens with: none Context: anticoagulant use, aspirin use Associated Symptoms: denies other symptoms - Related Data Home Medications Medication Instructions Recorded Confirmed Last Taken Metoprolol [Lopressor TAB] 12.5 mg PO BID 07/28/20 07/28/20 Unknown Previous Rx's Medication Instructions Recorded Last Taken Type Albuterol Sulfate [Proventil Hfa] 6.7 gm IH Q6HR PRN #1 hfa.aer.ad 10/20/17 Unknown Rx Aspirin EC [Halfprin EC] 81 mg PO QDAY #30 tablet. 06/25/20 07/02/20 Rx AtorvaSTATin [Lipitor] 40 mg PO QHS #30 tablet 06/25/20 07/02/20 Rx Ticagrelor [Brilinta] 90 mg PO BID #60 tablet 06/25/20 07/02/20 Rx lisinopriL [Zestril TAB] 5 mg PO QDAY #30 tablet 06/25/20 07/02/20 Rx ISOSORBIDE MONOnitrate [Imdur ER] 30 mg PO QDAY #30 tablet 07/29/20 Unknown Rx Ranolazine ER [Ranexa ER] 500 mg PO BID #60 tablet 07/29/20 Unknown Rx traMADoL [Ultram 50 MG tab] 50 mg PO Q4H PRN #14 tablet 07/29/20 Unknown Rx Ondansetron [Zofran ODT TAB] 8 mg PO Q8HR #20 tab.rapdis 08/13/20 Unknown Rx Allergies Allergy/AdvReac Type Severity Reaction Status Date / Time promethazine [From Phenergan] Allergy Hives Verified 07/20/20 00:24 sulfamethoxazole Allergy Itching Verified 10/19/17 01:48 [From Bactrim] trimethoprim [From Bactrim] Allergy Itching Verified 10/19/17 01:48 ED Review of Systems ROS: Stated complaint: EMESIS X2DAYS Other details as noted in HPI Comment: All other systems reviewed and negative ED Past Medical Hx - Past Medical History Previous Medical History?: Yes Hx Congestive Heart Failure: No Hx Diabetes: No Hx Arthritis: Yes Hx Asthma: Yes Hx COPD: No Hx HIV: No Additional medical history: CAD. sarcodosis - Surgical History Past Surgical History?: Yes Hx Coronary Stent: Yes (x1) Hx Cholecystectomy: Yes Hx Appendectomy: Yes Additional Surgical History: hysterectomy - Social History Smoking Status: Never Smoker Substance Use Type: None - Medications Home Medications: Home Medications Medication Instructions Recorded Confirmed Last Taken Type Albuterol Sulfate [Proventil Hfa] 6.7 gm IH Q6HR PRN #1 hfa.aer.ad 10/20/17 07/28/20 Unknown Rx Aspirin EC [Halfprin EC] 81 mg PO QDAY #30 tablet. 06/25/20 07/28/20 07/02/20 Rx AtorvaSTATin [Lipitor] 40 mg PO QHS #30 tablet 06/25/20 07/28/20 07/02/20 Rx Ticagrelor [Brilinta] 90 mg PO BID #60 tablet 06/25/20 07/28/20 07/02/20 Rx lisinopriL [Zestril TAB] 5 mg PO QDAY #30 tablet 06/25/20 07/28/20 07/02/20 Rx Metoprolol [Lopressor TAB] 12.5 mg PO BID 07/28/20 07/28/20 Unknown History ISOSORBIDE MONOnitrate [Imdur ER] 30 mg PO QDAY #30 tablet 07/29/20 Unknown Rx Ranolazine ER [Ranexa ER] 500 mg PO BID #60 tablet 07/29/20 Unknown Rx traMADoL [Ultram 50 MG tab] 50 mg PO Q4H PRN #14 tablet 07/29/20 Unknown Rx Ondansetron [Zofran ODT TAB] 8 mg PO Q8HR #20 tab.rapdis 08/13/20 Unknown Rx ED Physical Exam - General Limitations: No Limitations General appearance: alert, in no apparent distress - Head Head exam: Present: atraumatic, normocephalic - Eye Eye exam: Present: normal appearance, PERRL, EOMI - ENT ENT exam: Present: normal exam, mucous membranes moist, TM's normal bilaterally - Neck Neck exam: Present: normal inspection, full ROM - Respiratory Respiratory exam: Present: normal lung sounds bilaterally. Absent: respiratory distress, wheezes, rales - Cardiovascular Cardiovascular Exam: Present: regular rate, normal rhythm. Absent: systolic murmur, diastolic murmur, rubs, gallop - GI/Abdominal GI/Abdominal exam: Present: soft, normal bowel sounds - Extremities Exam Extremities exam: Present: normal inspection - Back Exam Back exam: Present: normal inspection - Neurological Exam Neurological exam: Present: alert, oriented X3 - Psychiatric Psychiatric exam: Present: normal affect, normal mood - Skin Skin exam: Present: warm, dry, intact, normal color. Absent: rash ED Course Vital Signs 08/13/20 08/13/20 08/13/20 00:58 04:36 04:43 Temperature 98.2 F Pulse Rate 97 H 94 H 98 H Respiratory 12 16 16 Rate Blood Pressure 142/94 Blood Pressure 150/105 [Right] O2 Sat by Pulse 100 100 98 Oximetry ED Medical Decision Making - Lab Data Result diagrams: 08/13/20 01:04 08/13/20 01:04 - Radiology Data Radiology results: report reviewed [address] [place] [address] Cat Scan Report Signed Patient: NAOMY DOBBINS MR#: [id number] : 1970 Acct:[id number] Age/Sex: 49 / F ADM Date: 08/13/20 Loc: ED Attending Dr: Ordering Physician: LAUREN DUTTA Date of Service: 08/13/20 Procedure(s): CT abdomen pelvis wo con Accession Number(s): [id number] cc: LAUREN DUTTA CT abdomen pelvis wo con INDICATION: "Generalized" abdominal pain with nausea and vomiting x 2 days.. TECHNIQUE: All CT scans at this location are performed using CT dose reduction for ALARA by means of automated exposure control. COMPARISON: 07/03/2020 FINDINGS: Lung bases are clear of acute disease. Cholecystectomy. Liver and spleen are negative. 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 Stable right renal cyst. Kidneys and adrenals are otherwise negative. Abdominal aorta is normal in size. No adenopathy. Pelvis Uterus is absent. Urinary bladder appears negative. No significant bowel a bnormalities. Previous appendectomy. No significant skeletal lesions. IMPRESSION: 1. No acute abnormality and no change since 07/03/2020. Signer Name: Micah Ocampo MD Signed: 08/13/2020 5:20 AM Workstation Name: [id number] Transcribed By: TM Dictated By: Micah Ocampo MD Electronically Authenticated By: Micah Ocampo MD Signed Date/Time: 08/13/20519 DD/ 5 TD/TT: Print Cancel - Medical Decision Making This patient presents with abdominal pain of unclear etiology. A CT scan was performed to evaluate for potential causes of the abdominal pain, however, neither the clinical exam nor the CT has identified an emergent etiology for the abdominal pain. Specifically, given the benign exam, the laboratory studies, and unremarkable CT, I have a very low suspicion for appendicitis, ischemic bowel, bowel perforation, or any other life threatening disease. I have discussed with the patient the level of uncertainty with undifferentiated abdominal pain and clearly explained the need to follow-up as noted on the discharge instructions, or return to the Emergency Department immediately if the pain worsens, develops fever, persistent and uncontrollable vomiting, or for any new symptoms or concerns. Patient presents to the emergency department with nausea, vomiting, diarrhea, differential diagnosis includes possible acute gastroenteritis. Abdominal examination without peritoneal signs. Currently patient is euvolemic without evidence of dehydration. No evidence of surgical abdomen or other acute medical emergency including bowel obstruction, viscus perforation, vascular catastrophe, appendicitis, cholecystitis at this time. Presentation not consistent with other acute emergent causes of vomiting and diarrhea at this time. No indication for abdominal imaging Plan supportive care, oral/IV rehydration, antiemetics and reassess Critical care attestation.: If time is entered above; I have spent that time in minutes in the direct care of this critically ill patient, excluding procedure time. ED Disposition Clinical Impression: Nausea & vomiting, Abdominal pain Disposition: DC-01 TO HOME OR SELFCARE Is pt being admited?: No Does the pt Need Aspirin: No Condition: Stable Instructions: Abdominal Pain, Adult, Nausea and Vomiting, Adult Prescriptions: Ondansetron [Zofran ODT TAB] 8 mg PO Q8HR #20 tab.rapdis Referrals: PRIMARY CARE, [Primary Care Provider] - 3-5 Days
[2020-08-13 04:48] VITALS: BP 150/105
[2020-08-13] MEDS ORDERED: HYOSCYAMINE SUBL 0.125 MG TAB SL ONE (04:55)
--- NOTE | 2020-08-13 05:24 | Cat Scan Report ---
CT abdomen pelvis wo con INDICATION: "Generalized" abdominal pain with nausea and vomiting x 2 days.. TECHNIQUE: All CT scans at this location are performed using CT dose reduction for ALARA by means of automated e xposure control. COMPARISON: 07/03/2020 FINDINGS: Lung bases are clear of acute disease. Cholecystectomy. Liver and spleen are negative. Pancreatic debbie l is absent, unchanged from the previous study and probably congenital. Stable right renal cyst. Kidn eys and adrenals are otherwise negative. Abdominal aorta is normal in size. No adenopathy. Pelvis Uterus is absent. Urinary bladder appears negative. No significant bowel abnormalities. Previous appe ndectomy. No significant skeletal lesions. IMPRESSION: 1. No acute abnormality and no change since 07/03/2020. Signer Name: Micah Ocampo MD Signed: 08/13/2020 5:20 AM Workstation Name: [id number]
== END 2020-08-13 06:10 | disposition home or self-care (01) ==
LOC: ED 00:25
DX: R11.2 Nausea with vomiting, unspecified (principal); R10.84 Generalized abdominal pain; M19.90 Unspecified osteoarthritis, unspecified site; Z79.899 Other long term (current) drug therapy; Z79.82 Long term (current) use of aspirin; Z88.2 Allergy status to sulfonamides; Z88.8 Allergy status to other drugs, medicaments and biological substances
CPT/HCPCS: 36415; 74176; 80053; 81001; 83690; 85025; Q0162